=== PATIENT | female | born 1945 | race Caucasian/White ===

== ENCOUNTER 2018-11-04 12:04 | Inpatient (IN) | payer MEDICARE ==
[~2018-11-04] VITALS: Ht 152.4 cm; Wt 83.0 kg
[~2018-11-04 12:04] MED LIST: ALLOPURINOL100 MG PO; AMIODARONE HCL200 MG PO; AMLODIPINE BESYL5 MG PO; ASPIR 8181 MG PO; ATORVASTATIN CA20 MG PO; BENTYL10 MG PO; BIDIL TABLET1 EACH; BUMETANIDE1 MG PO; CALCIUM ACETAT667 MG PO; CLONIDINE HCL0.1 MG PO; DOXYCYCLINE HY100 MG PO; ELIQUIS PO; FERROUS SULFAT325 MG PO; FLAGYL250 MG PO; FUROSEMIDE40 MG PO; GABAPENTIN400 MG PO; GENTAMICIN SUL3.5 GM; GLIPIZIDE-METF1 EAC2; HYDRALAZINE HCL50 MG PO; IPRAT-ALBUT 0.5-3 ML INH; ISOSORBIDE MONO30 MG PO; LASIX40 MG PO; LEVOTHYROXINE50 MCG PO; LEVOTHYROXINE75 MCG PO; LYRICA25 MG PO; METOCLOPRAMIDE10 MG PO; METOPROLOL SUCC50 MG PO; METOPROLOL TART50 MG PO; MIRALAX17 GM PO; MS CONTIN15 MG PO; NIFEDICAL XL30 MG PO; NORCO 10-325 T1 EACH PO; NYSTATIN-TRIAMC15 GM; NYSTATIN1 EAC1 TOP; OMEPRAZOLE40 MG PO; PACERONE200 MG PO; PLAVIX75 MG PO; PRAVASTATIN SOD10 MG PO; PROMETHAZINE HC25 M1 PO; PROVENTIL HFA6.7 GM; QUESTRAN PACKET4 GM PO; SERTRALINE HCL100 MG PO; SPIRIVA18 MCG INH; SPIRONOLACTONE25 MG PO; TYLENOL WITH C1 EACH PO; ULTRAM50 MG PO; VANCOMYCIN HCL125 MG; VITAMIN C500 M2 PO; ZINC-220220 MG PO; ZOFRAN ODT4 MG PO; [UNRECOGNIZED DRUG - OTHER]
[2018-11-04] MEDS ORDERED: ALBUTEROL/IPRATROPIUM 3 ML NEB NEB ONE (12:30)
[2018-11-04] MEDS ORDERED: ADENOSINE 6MG/2ML 0 ML ONE (12:58)
[2018-11-04 13:23] LABS: BASOPHILS % 0.3 % (0.0-1.0); EOSINOPHILS # (AUTO) 0.2 (0.0-0.4); EOSINOPHILS % 2.1 % (0.0-6.0); HEMATOCRIT 36.6 % (34.2-44.1); LYMPHOCYTES # (AUTO) 0.6 (1.0-3.2); LYMPHOCYTES % 8.1 % (18.0-39.1); MEAN CORPUSCULAR HGB CONC 30.1 g/dL (31-35); MEAN CORPUSCULAR VOLUME 93.1 fL (81-99); MONOCYTES # (AUTO) 0.4 (0.2-0.8); MONOCYTES % 5.5 % (4.4-11.3); NEUTROPHILS # (AUTO) 6.1 (2.1-6.9); NEUTROPHILS % 83.6 % (38.7-80.0); PLATELET COUNT 120 x10e3/uL (140-360); RED BLOOD COUNT 3.93 x10e6/uL (3.6-5.1)
[2018-11-04 13:42] LABS: ALBUMIN 3.7 g/dL (3.5-5.0); ALBUMIN/GLOBULIN RATIO 1.1 (0.8-2.0); ANION GAP 23.6 mmol/L (8-16); CALCIUM 8.7 mg/dL (8.4-10.2); CREATININE, SERUM 7.52 mg/dL (0.57-1.11); MAGNESIUM 2.5 MG/DL (1.3-2.1); PHOSPHORUS 5.7 MG/DL (2.3-4.7)
[2018-11-04 13:44] LABS: POTASSIUM 5.6 mmol/L (3.5-5.1)
--- NOTE | 2018-11-04 14:47 | Diagnostic Imaging Report ---
EXAMINATION: CHEST SINGLE (PORTABLE) INDICATION: Shortness of breath. COMPARISON: Chest radiograph 05/07/2017. FINDINGS: TUBES and LINES: Interval removal of left IJ tunneled hemodialysis catheter. LUNGS: There are perihilar and interstitial opacities. Multifocal patchy opacities most confluent throughout the right lung and in the left midlung zone. PLEURA: Possible small bilateral pleural effusions. No evidence of pneumothorax. HEART AND MEDIASTINUM: The cardiomediastinal silhouette is enlarged, unchanged. Atherosclerotic calcifications of the aortic arch. BONES AND SOFT TISSUES: No acute osseous abnormality. Status post median sternotomy. UPPER ABDOMEN: No free air under the diaphragm. IMPRESSION: Cardiomegaly with diffuse opacities, likely reflecting a combination of pulmonary interstitial and alveolar edema. Superimposed multifocal pneumonia is possible in the appropriate clinical setting. Follow-up short interval chest radiograph is suggested to assess for resolution. Signed by: Dr. Sanya Bryant MD on 11/04/2018 2:43 PM
[2018-11-04] MEDS ORDERED: SODIUM CHLORIDE FLUSH 10 ML SYR INJ PRN (15:00)
[2018-11-04] MEDS ORDERED: AMIODARONE HCL 900 MG in DEXTROSE 5% 500ML 500 ML IV ONE (15:00)
--- OUTSIDE RECORDS SUMMARY | 2018-11-04 15:12 | XMS REPORT ---
Author Author [facility] Address Unknown Phone Unavailable Care Team Providers Care Machinist/Machine Builder Name Role Phone Alexis DAVID Unavailable Unavailable Problems This patient has no known problems. Allergies, Adverse Reactions, Alerts This patient has no known allergies or adverse reactions. Medications This patient has no known medications. Results Test Description Test Time Test Comments Text Results Atomic Results Result Comments CHEST SINGLE (PORTABLE) 2018-11-04 14:40:00 [facility] [address] [address] Patient Name: SHOAIB RODRIGUEZ MR #: [id number] : 1945 Age/Sex: 73/F Req #: [id number] Adm Physician: Ordered by: AMBROCIO DAVID MD Report #: [id number] Location: ER Room/Bed: Procedure: [id number] DX/CHEST SINGLE (PORTABLE) Exam Date: 11/04/18 Exam Time: 1325 REPORT STATUS: Signed EXAMINATION: CHEST SINGLE (PORTABLE) INDICATION: Shortness of breath. COMPARISON: Chest radiograph 05/07/2017. FINDINGS: TUBES and LINES: Interval removal of left IJ tunneled hemodialysis catheter. LUNGS: There are perihilar and interstitial opacities. Multifocal patchy opacities most confluent throughout the right lung and in the left midlung zone. PLEURA: Possible small bilateral pleural effusions. No evidence of pneumothorax. HEART AND MEDIASTINUM: The cardiomediastinal silhouette is enlarged, unchanged. Atherosclerotic calcifications of the aortic arch. BONES AND SOFT TISSUES: No acute osseous abnormality. Status post median sternotomy. UPPER ABDOMEN: No free air under the diaphragm. IMPRESSION: Cardiomegaly with diffuse opacities, likely reflecting a combination of pulmonary interstitial and alveolar edema. Superimposed multifocal pneumonia is possible in the appropriate clinical setting. Follow-up short interval chest radiograph is suggested to assess for resolution. Signed by: Dr. Cecelia Ireland MD on 11/04/2018 2:43 PM Dictated By: CECELIA IRELAND MD [id number] Transcribed By: MAKI on 11/04/18 1443 COPY TO: AMBROCIO DAVID MD
--- NOTE | 2018-11-04 15:14 | NUR ---
CALL PLACED TO DR. STONE FOR THIS PATIENT; LEFT VOICEMAIL
[2018-11-04] MEDS ORDERED: ASPIRIN 81 MG CHEW TAB PO ONE (15:30)
--- NOTE | 2018-11-04 16:03 | NUR ---
2ND CALL TO DR. STONE FOR THIS PT.
--- NOTE | 2018-11-04 16:09 | NUR ---
DEE WAS CALLED TO CONTACT [facility]
[2018-11-04 16:31] LABS: ABG PCO2 49 mmHg (41-51); ABG PH 7.34 (7.31-7.41); ABG PO2 95 mmHg (80-105)
[2018-11-04 16:32] LABS: ABG HCO3 26 mmol/L (23-28)
--- NOTE | 2018-11-04 17:05 | NUR ---
SPOKE WITH DIALYSIS NURSE AND HE WILL BE COMING IN
[2018-11-04] MEDS: ENOXAPARIN SOD INJ 40 MG/0.4 ML SYR SC SCH (17:28)
[2018-11-04] MEDS: BUMETANIDE INJ 0.25MG/ML 4ML VIAL IV SCH (17:28)
[2018-11-04] MEDS ORDERED: SODIUM CHLORIDE 0.9% 1000ML 2,000 ML ONE (18:56)
--- NOTE | 2018-11-04 19:00 | NUR ---
Report received from AM RN Serene. Patient alert/oriented x3 resting on her bed. Hemodialysis nurse in the room to assisted dialysis to the patient. Denied pain and no SOB. Respiration even and unlabored. Patient had continuing on BIPAP,Spo2 maintained 100%. Bed in lower position and locked. Call roy within reach. Will continue to monitor.
[2018-11-04] MEDS: ALBUTEROL/IPRATROPIUM 3 ML NEB NEB SCH ×2 (19:42→23:02)
[2018-11-04 19:52] VITALS: BP 104/76
[2018-11-04 20:00] VITALS: BP 104/76
[2018-11-04 20:39] LABS: CREATINE KINASE MB 0.8 ng/mL (0-5.0)
[2018-11-04 21:00] VITALS: BP 104/76
[2018-11-05] VITALS (11 sets, daily range): BP systolic 94–122; BP diastolic 53–76
--- NOTE | 2018-11-05 01:00 | NUR ---
connected CPAP with 6liters oxygen at this time.
[2018-11-05] MEDS: ALBUTEROL/IPRATROPIUM 3 ML NEB NEB SCH ×6 (03:25→23:30)
[2018-11-05] MEDS: BUMETANIDE INJ 0.25MG/ML 4ML VIAL IV SCH (03:56)
--- NOTE | 2018-11-05 05:44 | Diagnostic Imaging Report ---
EXAM: XR CHEST 1 VIEW DATE: 11/05/2018 7:00 AM INDICATION: CHF COMPARISON: 11/04/2018, no report available FINDINGS: Lines and Tubes: None Heart and Mediastinum: Heart moderately enlarged. Sternotomy wires and vascular calcification stable. Lungs and Pleura: Moderate bilateral airspace opacities are present which could represent edema and/or pneumonia, slightly improved. Bones and Soft Tissues: No acute findings. IMPRESSION: 1. Improving edema and/or pneumonia. Signed by: Dr. Vince Baer MD on 11/05/2018 5:41 AM
[2018-11-05 06:01] LABS: CREATINE KINASE MB 0.9 ng/mL (0-5.0)
[2018-11-05 06:26] LABS: BASOPHILS % 0.2 % (0.0-1.0); EOSINOPHILS # (AUTO) 0.1 (0.0-0.4); EOSINOPHILS % 2.1 % (0.0-6.0); HEMATOCRIT 33.9 % (34.2-44.1); HEMOGLOBIN 10.2 g/dL (12.0-16.0); LYMPHOCYTES # (AUTO) 0.5 (1.0-3.2); LYMPHOCYTES % 8.9 % (18.0-39.1); MEAN CORPUSCULAR HEMOGLOBIN 27.9 pg (28-32); MEAN CORPUSCULAR HGB CONC 30.1 g/dL (31-35); MEAN CORPUSCULAR VOLUME 92.6 fL (81-99); MONOCYTES # (AUTO) 0.4 (0.2-0.8); MONOCYTES % 7.8 % (4.4-11.3); NEUTROPHILS # (AUTO) 4.2 (2.1-6.9); NEUTROPHILS % 80.6 % (38.7-80.0); PLATELET COUNT 121 x10e3/uL (140-360); RED BLOOD COUNT 3.66 x10e6/uL (3.6-5.1); RED CELL DISTRIBUTION WIDTH 15.9 % (11.7-14.4)
[2018-11-05 06:31] LABS: ALBUMIN 3.4 g/dL (3.5-5.0); ALBUMIN/GLOBULIN RATIO 1.1 (0.8-2.0); ANION GAP 17.8 mmol/L (8-16); CALCIUM 8.8 mg/dL (8.4-10.2); CREATININE, SERUM 4.67 mg/dL (0.57-1.11); POTASSIUM 3.8 mmol/L (3.5-5.1)
--- NOTE | 2018-11-05 06:56 | NUR ---
Report given to oncoming LIZZY Gauthier,walking round done.
--- NOTE | 2018-11-05 08:30 | NUR ---
VINCENT Lea rounding
[2018-11-05] MEDS ORDERED: METOPROLOL TARTRATE INJ 1 MG/ML VIAL IV PRN (08:45)
[2018-11-05] MEDS ORDERED: NON-FORMULARY MEDICATION (Pravastatin Sodium 10 MG) PO SCH (09:00)
[2018-11-05] MEDS ORDERED: ONDANSETRON HCL 4 MG ORAL DISINTEGRATING TAB PO PRN (09:15)
--- NOTE | 2018-11-05 09:18 | NUR ---
Dr. Lashonda moreno
[2018-11-05] MEDS ORDERED: AZITHROMYCIN 250 MG TAB PO NR (09:45)
--- NOTE | 2018-11-05 09:49 | Consultation ---
DATE OF CONSULTATION: November 04, 2018 CARDIOLOGY CONSULTATION REASON FOR CONSULTATION: CHF. HPI: This is a 73-year-old female that presented with shortness of breath. According to the patient, for the last 3 to 4 days she had been having shortness of breath and wheezing, unable to carry out her activities of daily living. Shortness of breath gets worse with exertion. She stated yesterday her provider was taking her to dialysis. Her heart was racing so fast. She was not able to catch her breath that she decided to come to the emergency room for further evaluation. She has a history of diastolic CHF, history of AFib and was not anticoagulated due to history of GI bleed. She denied any dizziness, any tingling or numbness sensation. BNP was 1593. Troponin was negative times 3. Chest x-ray showed cardiomegaly with diffuse opacities reflecting combination of pulmonary interstitial and alveolar edema. PAST MEDICAL HISTORY: Hypertension, end-stage renal disease, end-stage renal disease, on dialysis, CAD with CABG, AFib, anemia, diastolic CHF, hypothyroidism, bilateral lower extremity neuropathy, hyperlipidemia, altered mental status, obesity and GI bleed. PAST SURGICAL HISTORY: CABG, brain surgery, tubal ligation, and breast reduction surgery. FAMILY HISTORY: Positive for hypertension. SOCIAL HISTORY: She lives at home with the daughter. No smoking, but she drinks occasionally. PHYSICAL EXAMINATION VITAL SIGNS: Temperature 97, heart rate 112, blood pressure 104/61, respiration 19, oxygen saturation 98% on 3 L nasal cannula. GENERAL: She is awake, alert and oriented times 3 with some shortness of breath. HEENT: Mucous membrane moist. NECK: Supple. LUNGS: Bilateral with decreased breath sounds. CARDIOVASCULAR: Irregularly irregular. ABDOMEN: Soft. NEUROLOGICAL: Intact. EXTREMITIES: Lower extremities positive with 2-3+ edema. LABS: Sodium 138, potassium 3.8, chloride 97, CO2 27, BUN 28, creatinine 4.67, glucose 90. White blood cells 5.15, hemoglobin 10.2, hematocrit 33.9, and platelets 121,000. IMPRESSION 1. [id number]-[id number] systolic congestive heart failure exacerbation. 2. Fluid overload. 3. Atrial fibrillation with rapid ventricular response. 4. End-stage renal disease, on dialysis. 5. Anemia. 6. Hypothyroidism. 7. Hyperlipidemia. 8. History of neuropathy. 9. Shortness of breath. ASSESSMENT AND PLAN 1. She received dialysis yesterday and her potassium looked better. 2. Will go ahead and get an echocardiogram to reassess the LV and the valve function. 3. Will continue beta maninder and diuretic. 4. Will put her on low salt diet and 1.5 L fluid restriction. 5. Heart rate still tachy. Will use p.r.n. IV metoprolol. She is not anticoagulated due to history of GI bleed. Will continue Lovenox for now. Further cardiac workup pending clinical course. Thank you for this consultation. DICTATED BY JUNIE WALTON NP Job#: [id number] COLLIN
[2018-11-05] MEDS: AMIODARONE HCL 200 MG TAB PO SCH (09:57)
[2018-11-05] MEDS: ASPIRIN 81 MG CHEW TAB PO SCH (09:57)
[2018-11-05] MEDS ORDERED: GABAPENTIN 400 MG CAP PO SCH (10:00)
--- NOTE | 2018-11-05 10:03 | History and Physical ---
PRIMARY CARE PHYSICIAN: Dr. Moe Sanford CONSULTANTS: 1. Dr. Miri Baez 2. Dr. Rd Pascual CHIEF COMPLAINT: Shortness of breath, pulmonary edema, and possible pneumonia. HISTORY: Patient is a 73-year-old female with end-stage renal disease, on dialysis, and previously with C. diff infection. The patient had left arm AV fistula placement. She has been getting dialysis. Patient came in with increasing shortness of breath and difficulty breathing. The patient chest x-ray showed pulmonary edema. The patient is otherwise stable. She is stating that she did not have any fever. No chest pain. She does have increasing shortness of breath, however. PAST MEDICAL HISTORY: End-stage renal disease, on dialysis. Recurrent urinary tract infection. History of previous C. diff infection. Atrial fibrillation, coronary artery disease, chronic obstructive pulmonary disease. Congestive heart failure. History of coronary artery bypass surgery. History of prior craniotomy, etiology unclear. History of prior breast reduction surgery. Chronic anemia. SOCIAL HISTORY: Patient does not smoke or use alcohol. No recreational drug use. ALLERGIES: LISINOPRIL, GABAPENTIN, AND BACTRIM. HOME MEDICATIONS: List reviewed. REVIEW OF SYSTEMS: Shortness of breath. PHYSICAL EXAMINATION: VITAL SIGNS: Temperature is 98, blood pressure 107/72, pulse rate is 101, respirations 20. GENERAL: The patient is not in acute distress. She is awake. HEENT: Normocephalic, atraumatic. Sclerae anicteric. NECK: Supple grossly. PULMONARY: Diminished breath sounds bilaterally with coarseness and rhonchi. CARDIOVASCULAR: S1 and S2. Regular rate and rhythm to tachycardia. ABDOMEN: Soft, obese. EXTREMITIES: Plus edema. NEUROLOGIC: No focal deficit. LABORATORY: Sodium is 138, potassium 3.8, chloride 97, bicarb 27, BUN 28, creatinine 4.7, glucose 90. WBC is 5, hemoglobin 10.2, hematocrit 34, platelets 121,000. IMPRESSION: 1. Pulmonary edema. 2. Possible community-acquired pneumonia. 3. Possible pleural effusion. 4. End-stage renal disease, on dialysis with fluid overload. 5. Multiple chronic baseline problems. PLAN: Resume home medication. Dialysis. Antibiotics. CT of the chest without contrast. Home medications. PT, OT. Job#: [id number]
[2018-11-05] MEDS: PANTOPRAZOLE SOD 40 MG TABEC PO SCH (10:39)
[2018-11-05] MEDS: ALLOPURINOL 100 MG TAB PO SCH (10:39)
--- NOTE | 2018-11-05 11:17 | NUR ---
PATIENT REFUSING PHYSICAL THERAPY.
[2018-11-05] MEDS ORDERED: METOPROLOL TARTRATE 50 MG TAB PO SCH (12:00)
[2018-11-05] MEDS: METOPROLOL TARTRATE 25 MG TAB PO SCH ×3 (12:25→23:36)
--- NOTE | 2018-11-05 13:50 | NUR ---
Dr. Sasha moreno; Patient is to have HD in the morning, dialysis nurse made aware.
--- NOTE | 2018-11-05 13:50 | NUR ---
Visit made by the Spiritual Care Department Pastoral Visitor, Niya Garcia. PV provided pastoral presence, prayer, hospitality, and supportive listening. Pastoral Visitor informed pt/family of the scope of Distribution Analyst Services and availability. EDMOND COTO Private Duty Rn Spiritual Care Department O: [phone] Pager: [phone] ([phone] number calling from)
[2018-11-05 13:56] LABS: CREATINE KINASE MB 0.9 ng/mL (0-5.0)
--- NOTE | 2018-11-05 14:34 | Consultation ---
DATE OF CONSULTATION: November 04, 2018 This is a late entry. HISTORY OF PRESENT ILLNESS: A 73-year-old female who was scheduled for dialysis today developed progressive shortness of breath and cough. Presented to the emergency room where she was found to be hypoxic, placed on BiPAP. Currently on BiPAP. Denies any fever or chills or chest pains. She states that shortness of breath developed progressively and developed about 2 days ago. Cough is mostly nonproductive. ALLERGIES: TO LISINOPRIL AND SULFA. HAD A RECENT Had recent Enterobacter cloacae septicemia secondary to infected dialysis catheter, was treated adequately with antibiotics. She has history of type 2 diabetes with end-organ damage including retinopathy, neuropathy, and peripheral vascular disease as well as end-stage renal disease. History of congestive heart failure. History of gout, cardiac disease, atrial fibrillation, COPD, prior craniotomy, history of C. difficile colitis, previous ESBL. CURRENT MEDICATIONS: In the process of being reconciled but she does take sertraline 100 mg at bedtime, pravastatin 10 mg once a day, pantoprazole 40 mg. She is on metoprolol 25 p.o. q.6. She is on levothyroxine 75 mcg daily and Neurontin 400 mg p.o. t.i.d. which has been adjusted to 300 mg b.i.d. given her end-stage renal disease status. She is also on allopurinol 100 mg daily, amiodarone 200 mg p.o. daily, aspirin 1 tablet a day. SOCIAL HISTORY: She does not smoke or drink. FAMILY HISTORY: Significant for diabetes. PHYSICAL EXAMINATION GENERAL: Alert, alert, laying supine, on BiPAP, no apparent distress. VITALS: Blood pressure of 104/76, pulse rate 98, afebrile, respiratory rate 23, oxygen saturation 99% to 100% on BiPAP. HEAD AND NECK: Cornea clear. Oral mucosa moist. Neck veins distended. LUNGS: Bilateral end-expiratory rhonchi with rales, bilateral. HEART: S1, S2 audible. No gallop. ABDOMEN: Otherwise soft, nontender. LOWER EXTREMITY EXAMINATION: Shows 1+ edema. IMPRESSIONS 1. Significant fluid overload. 2. Congestive heart failure. 3. End-stage renal disease. 4. Mild hyperkalemia. LABORATORY TESTS: Noted. Hemoglobin is stable, white count normal. Potassium level of 5.6. Dialysis nurse has been called on an urgent stat basis for stat dialysis. Discussed with ER physician. Discussed with patient. I am standing by for nurse to show up to initiate dialysis, will ultrafilter on hemodialysis, challenge dry weight. Oxygen protocol. Adjust Neurontin dose. Please see orders. Job#: [id number] TA
[2018-11-05] MEDS ORDERED: METHYLPREDNISOLONE SOD SUCC 40 MG/ML VIAL 1ML IV NR (14:45)
--- NOTE | 2018-11-05 15:01 | Diagnostic Imaging Report ---
EXAM: CT Chest WITHOUT contrast 11/05/2018 9:08 AM INDICATION: Shortness of breath. End-stage renal disease. Pulmonary edema. COMPARISON: Chest radiograph November 04, 2018 and November 05, 2018 TECHNIQUE: Chest was scanned utilizing a multidetector helical scanner from the lung apex through the level of the adrenal glands without administration of IV contrast. Absence of intravenous contrast decreases sensitivity for detection of lymphadenopathy and vascular pathology. Coronal and sagittal reformations were obtained. Routine protocol was performed. IV CONTRAST: None RADIATION DOSE: Total DLP: 410.33 mGy*cm Estimated effective dose: (DLP x 0.014 x size factor) mSv All CT scans are performed using radiation dose reduction techniques. Technical factors are evaluated and adjusted to ensure appropriate moderation of exposure. Automated dose management technology is applied to adjust the radiation dose to minimize exposure while achieving a diagnostic-quality image. COMPLICATIONS: None FINDINGS: LINES/ TUBES: None. LUNGS AND AIRWAYS: Extensive scattered groundglass densities are seen throughout the lungs with regions of what appear to be scarring/atelectasis and regions of what appear to be air trapping. Airways are normal. PLEURA: There are moderate-sized pleural effusions. No pneumothorax is seen. HEART AND MEDIASTINUM: The thyroid gland is normal. There are enlarged mediastinal and hilar lymph nodes. The heart is prominent in size. There is no pericardial effusion. Scattered vascular calcifications are seen in the coronary arteries, aorta and branch vessels. Sternal wires and postsurgical changes to the heart are seen. UPPER ABDOMEN: Ill-defined hypodensity in the right hepatic lobe near the dome and in the anterior right hepatic lobe are seen. These are incompletely characterized. The liver has a nodular contour. The spleen may be enlarged. The spleen is incompletely imaged. BONES: Scattered degenerative changes are seen SOFT TISSUES: Small nonspecific calcification in the anterior lower chest left subcutaneous fat. IMPRESSION: Moderate size pleural effusion with associated atelectasis and extensive scattered groundglass densities are seen throughout the lungs with regions of what appear to be scarring/atelectasis and regions of what appear to be air trapping. Enlarged mediastinal and hilar lymph nodes could be reactive. Attention to these on follow-up imaging is recommended. Ill-defined hypodensities in the liver are incompletely characterized. Abdominal MRI is recommended for further evaluation. Signed by: Dr. Kevin Laird M.D. on 11/05/2018 2:58 PM
[2018-11-05] MEDS ORDERED: NON-FORMULARY MEDICATION (Ascorbic Acid (Vitamin C) 500 MG) PO SCH (17:00)
[2018-11-05] MEDS: ENOXAPARIN SOD INJ 40 MG/0.4 ML SYR SC SCH (17:42)
[2018-11-05] MEDS: GABAPENTIN 400 MG CAP PO SCH (17:42)
[2018-11-05] MEDS: ASCORBIC ACID 500 MG TAB PO SCH (17:42)
--- NOTE | 2018-11-05 19:00 | NUR ---
Report received from AM LIZZY Gauthier.Patient received alert resting on her bed. Denied pain and no SOB. Respiration even and unlabored with 3 liters oxygen continuing via nasal canula. Patient instructed call for help as needed. Bed in lower position,locked. Call roy within reach. Will continue to monitor.
--- NOTE | 2018-11-05 19:40 | NUR ---
Patient bed alarm and weight was not working, assisted to changed bed at this time.
[2018-11-05] MEDS: SERTRALINE HCL 100 MG TAB PO SCH (20:49)
[2018-11-05] MEDS: PRAVASTATIN 20 MG TAB PO SCH (20:49)
[2018-11-06] VITALS (9 sets, daily range): BP systolic 94–120; BP diastolic 54–88
[2018-11-06] MEDS: ALBUTEROL/IPRATROPIUM 3 ML NEB NEB SCH ×6 (03:20→23:30)
[2018-11-06 05:24] LABS: EOSINOPHILS % 0.2 % (0.0-6.0); HEMATOCRIT 34.6 % (34.2-44.1); HEMOGLOBIN 10.3 g/dL (12.0-16.0); LYMPHOCYTES # (AUTO) 0.3 (1.0-3.2); LYMPHOCYTES % 6.3 % (18.0-39.1); MEAN CORPUSCULAR HEMOGLOBIN 27.6 pg (28-32); MEAN CORPUSCULAR HGB CONC 29.8 g/dL (31-35); MEAN CORPUSCULAR VOLUME 92.8 fL (81-99); MONOCYTES # (AUTO) 0.2 (0.2-0.8); MONOCYTES % 3.3 % (4.4-11.3); NEUTROPHILS # (AUTO) 4.1 (2.1-6.9); NEUTROPHILS % 89.5 % (38.7-80.0); PLATELET COUNT 112 x10e3/uL (140-360); RED BLOOD COUNT 3.73 x10e6/uL (3.6-5.1); RED CELL DISTRIBUTION WIDTH 15.9 % (11.7-14.4)
[2018-11-06 05:49] LABS: ALBUMIN 3.4 g/dL (3.5-5.0); ANION GAP 20.1 mmol/L (8-16); CALCIUM 8.7 mg/dL (8.4-10.2)
[2018-11-06 05:59] LABS: POTASSIUM 5.1 mmol/L (3.5-5.1)
[2018-11-06 06:00] LABS: CREATININE, SERUM 6.89 mg/dL (0.57-1.11)
[2018-11-06] MEDS: METOPROLOL TARTRATE 25 MG TAB PO SCH ×4 (06:13→23:51)
[2018-11-06] MEDS: LEVOTHYROXINE SODIUM 75 MCG TAB PO SCH (06:13)
--- NOTE | 2018-11-06 07:06 | NUR ---
Report given to oncoming LIZZY Molina,walking round done.
[2018-11-06] MEDS: PANTOPRAZOLE SOD 40 MG TABEC PO SCH ×2 (07:30→18:41)
[2018-11-06] MEDS ORDERED: OXYCODONE-ACET1 EAC3 PO (08:42)
[2018-11-06] MEDS ORDERED: NON-FORMULARY MEDICATION (Oxycodone Hcl/Acetaminophen (Oxycodone-Acetaminophen 10-325) 1 T PO PRN (08:45)
[2018-11-06] MEDS: ASCORBIC ACID 500 MG TAB PO SCH ×2 (09:00→17:59)
[2018-11-06] MEDS: GABAPENTIN 400 MG CAP PO SCH ×2 (09:00→17:58)
[2018-11-06] MEDS ORDERED: ALBUMIN 25% 12.5GM 50ML 50 ML IV PRN (10:30)
[2018-11-06] MEDS ORDERED: SODIUM CHLORIDE 0.9% 1000ML 2,000 ML IV PRN (10:30)
[2018-11-06] MEDS: OXYCODONE/ACETAMINOPHEN 5-325 1 EACH TABLET PO PRN ×2 (10:40→18:44)
[2018-11-06] MEDS ORDERED: ALBUMIN 25% 12.5GM 50ML 100 ML IV PRN (11:00)
--- NOTE | 2018-11-06 11:35 | NUR ---
ASSESSMENT: Spiritual concern Referred by Pastoral Visitor. Pt hopeful concerning illness. Pt states she lives with her daughter and her son lives in [place] w/ pt's 3 y/o granddaughter. Pt lamented traveling restrictions related to dialysis treatment. Intervention: Provided unhurried pastoral presence and empathic listening. Facilitated illness review. Provided prayer. Provided information on how to reach manager furniture, if needed. Outcome: Pt stated "visit any time." EDMOND COTO [employer]illed Maintenance Supervisor Spiritual Care Department O: [phone] Pager: [phone] ([phone] number calling from)
--- NOTE | 2018-11-06 15:47 | NUR ---
Nutrition Screen Note RD Recommendation for Physician: - Recommend adding Renal diet restrictions to current diet Plan of Care: RD following, monitoring for tolerance and adequacy Nutrition reason for involvement: Nutrition Risk Trigger- DX Primary Diagnose(s): SOB, PE, ESRD PMH: ESRD on HD, C diff, CAD, COPD, CABG Ht: 60 in Wt: 189.04 lb BMI: 36.9 kg/m2 IBW: [address] Assessment: (11/06) 73 YOF admitted for SOB and fluid overload due to missed dialysis treatment. Pt evaluated today due to admit dx of ESRD, pt sleeping on BiPAP at time of visit and receiving HD tx- unable to wake x 2. No family present to provide nutrition hx. Pt discussed during rounds, pt now dialyzed twice since admit. No reported poor intake or GI distress per rounds or upon admit. Chart reviewed. Labs and meds reviewed, K and Phos trend elevated. Will monitor and continue to follow. Current Diet: Cardiac Malnutrition Evaluation (11/06/18) The patient does not meet criteria for a specified degree of malnutrition at this time. Will re-evaluate at follow-up as appropriate. Diet Education Needs Assessment: Diet education indicated, pt not appropriate for education at this time. Nutrition Care Level: Low Signed: Jessica To RD, LD, [facility]
[2018-11-06] MEDS ORDERED: CEPACOL SORE THROAT LOZENGES PO PRN (16:30)
[2018-11-06] MEDS ORDERED: METHYLPREDNISOLONE SOD SUCC 40 MG/ML VIAL 1ML IV ONE (16:30)
[2018-11-06] MEDS: AMIODARONE HCL 200 MG TAB PO SCH (17:59)
[2018-11-06] MEDS: ASPIRIN 81 MG CHEW TAB PO SCH (17:59)
[2018-11-06] MEDS: AZITHROMYCIN 250 MG TAB PO SCH (17:59)
[2018-11-06] MEDS: ALLOPURINOL 100 MG TAB PO SCH (17:59)
[2018-11-06] MEDS: ENOXAPARIN SOD INJ 40 MG/0.4 ML SYR SC SCH (18:43)
--- NOTE | 2018-11-06 19:00 | NUR ---
Report received from AM LIZZY Molina. Patient received stable resting on her bed. Dined pain and no SOB. No respiratory distress noted, continuing on 3 liters nasal canula Spo2 maintained 97%. Patient instructed to call for help as needed. Bed in lower position,locked. Call roy within reach. Will continue to monitor.
[2018-11-06] MEDS: PRAVASTATIN 20 MG TAB PO SCH (20:32)
[2018-11-06] MEDS: SERTRALINE HCL 100 MG TAB PO SCH (20:32)
--- NOTE | 2018-11-06 23:34 | NUR ---
Patient assisted to go to bathroom with using her walker,patient tolerated well. Patient had moderate brown BM at this time. No SOB noted, continuing on 3liters nasal canula. Will continue to monitor.
[2018-11-07] VITALS (8 sets, daily range): BP systolic 109–133; BP diastolic 56–109
[2018-11-07] MEDS: OXYCODONE/ACETAMINOPHEN 5-325 1 EACH TABLET PO PRN ×3 (02:01→18:56)
[2018-11-07] MEDS: ALBUTEROL/IPRATROPIUM 3 ML NEB NEB SCH ×6 (03:20→23:30)
[2018-11-07] MEDS: LEVOTHYROXINE SODIUM 75 MCG TAB PO SCH (05:47)
[2018-11-07] MEDS: METOPROLOL TARTRATE 25 MG TAB PO SCH ×4 (05:48→18:53)
--- NOTE | 2018-11-07 07:01 | NUR ---
Report given to oncoming LIZZY Molina, walking round done.
[2018-11-07] MEDS: PANTOPRAZOLE SOD 40 MG TABEC PO SCH (07:50)
[2018-11-07] MEDS: ALLOPURINOL 100 MG TAB PO SCH (08:22)
[2018-11-07] MEDS: AZITHROMYCIN 250 MG TAB PO SCH (08:22)
[2018-11-07] MEDS: ASPIRIN 81 MG CHEW TAB PO SCH (08:22)
[2018-11-07] MEDS: AMIODARONE HCL 200 MG TAB PO SCH (08:22)
[2018-11-07] MEDS: ASCORBIC ACID 500 MG TAB PO SCH ×2 (08:24→18:04)
[2018-11-07] MEDS: GABAPENTIN 300 MG CAP PO SCH ×2 (08:29→18:04)
--- NOTE | 2018-11-07 08:59 | Diagnostic Imaging Report ---
Examination: Single AP view of the chest. COMPARISON: CT chest without contrast 11/06/2018 INDICATION: Pleural effusion DISCUSSION: Lungs are reasonably well inflated. Small bilateral pleural effusions, left larger than right, bibasilar airspace disease representing subsegmental atelectasis. Stable enlargement of the cardiac silhouette with postsurgical changes of the mediastinum and interstitial pulmonary edema . No acute osseous abnormality. IMPRESSION: Stable cardiomegaly with interstitial pulmonary edema and small bilateral pleural effusions, left larger than right. Signed by: Dr. John Paul Hoskins M.D. on 11/07/2018 8:56 AM
--- NOTE | 2018-11-07 17:39 | NUR ---
Called [facility] [phone] spoke with Rosa M to schedule dialysis for tomorrow morning per Dr. Silva Baez's orders.
[2018-11-07] MEDS ORDERED: METHYLPREDNISOLONE SOD SUCC 40 MG/ML VIAL 1ML IV ONE (17:45)
[2018-11-07] MEDS: ENOXAPARIN SOD INJ 40 MG/0.4 ML SYR SC SCH (18:04)
--- NOTE | 2018-11-07 19:20 | NUR ---
RECEIVED REPORT @ PT'S BEDSIDE, PT AAOX3, WATCHING TV. DENIES PAIN AND DISCOMFORTS, INFORMED PT TO CALL FOR ASSISTANCEBEFORE GETTING OOB, PT VERBALIZES UNDERSTANDING.
[2018-11-07] MEDS: PRAVASTATIN 20 MG TAB PO SCH (21:10)
[2018-11-07] MEDS: SERTRALINE HCL 100 MG TAB PO SCH (21:10)
--- NOTE | 2018-11-08 00:25 | NUR ---
RECEIVED REPORT ON PT @ PT'S BEDSIDE , FISTULA GOOD BRIUT & THIRLL. SLEEPING WELL WITH CARE. INSTRUCTED PT TO CALL FOR NURSING STAFF PRIOR TO GETTING OOB, PT VERBALIZED UNDERSTANDING, CALL LOYA IN REACH.
[2018-11-08] MEDS: METOPROLOL TARTRATE 25 MG TAB PO SCH ×5 (00:33→17:02)
[2018-11-08] MEDS: ALBUTEROL/IPRATROPIUM 3 ML NEB NEB SCH ×6 (03:00→23:00)
[2018-11-08 04:14] VITALS: BP 110/95
[2018-11-08] MEDS: LEVOTHYROXINE SODIUM 75 MCG TAB PO SCH (05:21)
[2018-11-08] MEDS: OXYCODONE/ACETAMINOPHEN 5-325 1 EACH TABLET PO PRN ×2 (05:25→17:38)
[2018-11-08 05:32] LABS: EOSINOPHILS % 0.4 % (0.0-6.0); HEMATOCRIT 33.1 % (34.2-44.1); HEMOGLOBIN 9.9 g/dL (12.0-16.0); LYMPHOCYTES # (AUTO) 0.3 (1.0-3.2); MEAN CORPUSCULAR HGB CONC 29.9 g/dL (31-35); MEAN CORPUSCULAR VOLUME 93.8 fL (81-99); MONOCYTES # (AUTO) 0.2 (0.2-0.8); NEUTROPHILS # (AUTO) 4.2 (2.1-6.9); PLATELET COUNT 109 x10e3/uL (140-360); RED BLOOD COUNT 3.53 x10e6/uL (3.6-5.1); RED CELL DISTRIBUTION WIDTH 15.9 % (11.7-14.4)
[2018-11-08 05:52] LABS: ALBUMIN 4.1 g/dL (3.5-5.0); ALBUMIN/GLOBULIN RATIO 1.3 (0.8-2.0); ANION GAP 20.8 mmol/L (8-16); CALCIUM 9.3 mg/dL (8.4-10.2); CREATININE, SERUM 5.86 mg/dL (0.57-1.11); POTASSIUM 5.8 mmol/L (3.5-5.1)
[2018-11-08] MEDS ORDERED: SODIUM CHLORIDE 0.9% 1000ML 2,000 ML ONE (06:44)
[2018-11-08 07:11] VITALS: BP 138/84
--- NOTE | 2018-11-08 07:14 | NUR ---
REPORTED OFF TO ONCOMING NURSE DIALYSIS NURSE HERE TO PERFORM TREATMENT,
--- NOTE | 2018-11-08 07:15 | NUR ---
pt resting in bed, no s/s distress. dialysis nurse on unit. pt stable. will continue to monitor.
[2018-11-08] MEDS: PANTOPRAZOLE SOD 40 MG TABEC PO SCH (07:30)
[2018-11-08 08:18] VITALS: BP 138/84
[2018-11-08] MEDS: GABAPENTIN 300 MG CAP PO SCH ×2 (08:30→17:02)
[2018-11-08] MEDS: AMIODARONE HCL 200 MG TAB PO SCH ×2 (08:30→17:02)
[2018-11-08] MEDS: AZITHROMYCIN 250 MG TAB PO SCH (08:30)
[2018-11-08] MEDS: ASPIRIN 81 MG CHEW TAB PO SCH (08:30)
[2018-11-08] MEDS: ASCORBIC ACID 500 MG TAB PO SCH ×2 (08:30→17:02)
[2018-11-08] MEDS: ALLOPURINOL 100 MG TAB PO SCH ×2 (08:31→17:03)
--- NOTE | 2018-11-08 08:43 | NUR ---
CM SPOKE TO DR. BAE REGARDING PATIENT BARRIER TO DISCHARGE AND DISCHARGE PLAN. PATIENT UNSTEADY BUT USES ROLLING WALKER AND WHEELCHAIR AT HOME. PER MD, PATIENT TO RECEIVE HD TODAY. DR. BAE WITH VERBAL ORDERS TO SET UP HOME HEALTH WITH SN EVAL AND PT EVAL AND TREAT. ORDERS PLACED BY CM. FLOOR DALILA LEON NOTIFIED.
[2018-11-08 12:14] VITALS: BP 121/81
--- NOTE | 2018-11-08 15:07 | NUR ---
DC PLAN: PT DISCUSSED IN AM MEETING. PLAN IS TO DC HOME AFTER HD IF PT IS STABLE. IMM LETTER WAS EXPLAINED TO THE PT. VERBALIZED UNDERSTANDING. IMM LETTER WAS SIGNED. COPY TO CHART AND COPY TO THE PT. ORDER WAS RECEIVED FOR HOME HEALTH; SN/PT. MET WITH THE PT AT THE BEDSIDE. STATES SHE HAS A PROVIDER 28HRS/WEEK AND THEY ARE FROM [facility] @ [phone]. PT WAS PROVIDED CHOICE LETTER. STATES IF ND DOES NOT HAVE NURSING, OK TO SEND TO [facility] / IN-NETWORK PROVIDER W INSURANCE. CALL TO [facility]. STATES THEY NO LONGER HAVE NURSING. CALL MADE TO [facility] @ [phone]. SPOKE W JUNG. STATES THEY CAN RUN THE INSURANCE, BUT THE PT IS IN NETWORK. ORDER WAS FAXED TO [phone].
--- NOTE | 2018-11-08 15:12 | NUR ---
HOME HEALTH DISCHARGE NOTE PATIENT ADDRESS WHERE SERVICE WILL BE RECEIVED: [address] [place] [id number] PATIENT CONTACT NUMBER: [phone] NAME OF HOME HEALTH COMPANY: [employer] TELEPHONE/FAX NUMBER OF COMPANY: OFF: [phone] / FAX: [phone] ADDRESS OF [employer]: [address] [place] [id number] SERVICES TO RECEIVE: SN EVAL AND TREAT, PT/OT EVAL AND TREAT ANTICIPATED DATE SERVICES WILL BEGIN: WITHIN 1-2DAYS Please call the company above if you have not received a call to schedule a home visit within 24 hours of discharge.
[2018-11-08 17:00] VITALS: BP 98/58
[2018-11-08] MEDS: ENOXAPARIN SOD INJ 40 MG/0.4 ML SYR SC SCH (17:02)
--- NOTE | 2018-11-08 17:03 | NUR ---
dr couch rounded earlier, stated pt not to dc unless HR remains under 110. pt did not recieve metoprolol @0600 dt dialysis. HR remained high. metoprolol admin @1300, HR beginning to remain 98-115. will continue to monitor. HH has been arranged by heather hernandez pending HR stablizing <110.
--- NOTE | 2018-11-08 19:30 | NUR ---
RECEIVED REPORT AT BEDSIDE [facility] OFF GOING NURSE RODRÍGUEZ RN, PT AAOX3, BREATHING EVEN AND UNLABORED ON 2L O2 N/C. PT IN NO DISTRESS AT THIS TIME. HR IN 90'S.
[2018-11-08 20:00] VITALS: BP 115/71
[2018-11-08] MEDS: PRAVASTATIN 20 MG TAB PO SCH (21:33)
[2018-11-08] MEDS: SERTRALINE HCL 100 MG TAB PO SCH (21:33)
--- NOTE | 2018-11-08 23:00 | NUR ---
pt ready for bed, request percocet for generalized back pain. pt able to turn and reposition for comfort measures.
[2018-11-09] VITALS (8 sets, daily range): BP systolic 93–125; BP diastolic 62–99
[2018-11-09] MEDS: OXYCODONE/ACETAMINOPHEN 5-325 1 EACH TABLET PO PRN ×3 (00:10→19:42)
[2018-11-09] MEDS: ALBUTEROL/IPRATROPIUM 3 ML NEB NEB SCH ×5 (03:00→19:45)
[2018-11-09] MEDS: METOPROLOL TARTRATE 25 MG TAB PO SCH ×4 (06:00→17:34)
[2018-11-09] MEDS: LEVOTHYROXINE SODIUM 75 MCG TAB PO SCH (06:21)
--- NOTE | 2018-11-09 07:17 | NUR ---
REPORTED OFF TO EMMA ARREGUIN IN ROOM ON COMPUTER AND PHONE.DENIES PAIN.
[2018-11-09] MEDS: ALLOPURINOL 100 MG TAB PO SCH (08:20)
[2018-11-09] MEDS: AMIODARONE HCL 200 MG TAB PO SCH (08:20)
[2018-11-09] MEDS: AZITHROMYCIN 250 MG TAB PO SCH (08:20)
[2018-11-09] MEDS: ASPIRIN 81 MG CHEW TAB PO SCH (08:20)
[2018-11-09] MEDS: GABAPENTIN 300 MG CAP PO SCH ×2 (08:20→16:43)
[2018-11-09] MEDS: ASCORBIC ACID 500 MG TAB PO SCH ×2 (08:20→16:43)
[2018-11-09] MEDS: PANTOPRAZOLE SOD 40 MG TABEC PO SCH (08:20)
--- NOTE | 2018-11-09 08:23 | NUR ---
SPOKE TO COOPER AT [facility] DIALYSIS INFORMED PATIENT TO HAVE HD TODAY FOR FLUID REMOVAL PER
--- NOTE | 2018-11-09 08:39 | Progress Note ---
DATE: November 09, 2018 SUBJECTIVE: Still some dyspnea, on oxygen. PHYSICAL EXAMINATION GENERAL: No distress, sitting up. VITAL SIGNS: Temperature 98.4, pulse 93 and irregular, blood pressure 104/72. CHEST: With scattered crackles. EXTREMITIES: 1+ edema. ASSESSMENT 1. End-stage renal disease. 2. Fluid overload. 3. Nephrosclerosis. 4. History of congestive heart failure. 5. Atrial fibrillation. PLAN: Suggest another 2 hours of fluid removal today with dialysis, 2-3 liters target, blood flow rate 200 mL per minute, p.r.n. mannitol and saline. We will follow along. Job#: [id number] BRANDON
--- NOTE | 2018-11-09 14:18 | NUR ---
2nd call placed to Rahat spoke to Melonie, informed that patient is still needing dialysis prior to d/c, awaiting return call
--- NOTE | 2018-11-09 15:35 | NUR ---
spoke to field auditor rocio at [facility] informed patient has still not received dialysis, states "nurse to arrive at 6pm for dialysis treatment" house supp informed of delay
[2018-11-09] MEDS: ENOXAPARIN SOD INJ 40 MG/0.4 ML SYR SC SCH (16:43)
--- NOTE | 2018-11-10 00:19 | Discharge Summary ---
NO DICTATION (00:01) Job#: [id number] ELIAS
--- NOTE | 2018-11-10 02:21 | Discharge Summary ---
CONSULTANTS 1. Dr[address] Pascual. 2. Dr. Miri Baez. FINAL DIAGNOSES 1. Idrru-hg-tsbyqvk systolic dysfunction and congestive heart failure. Patient ejection fraction of 40%. 2. End-stage renal disease, on dialysis, associated with fluid overload. 3. Noncompliance due to fluid restriction. 4. Baseline chronic atrial fibrillation, rate controlled, unable to anticoagulate due to recurrent upper gastrointestinal bleed. SUMMARY: Patient is a 73-year-old female who came in with increasing vascular congestion. The patient has pulmonary edema. She also had bilateral pleural effusion. After dialysis, the patient responded well. Her repeat x-ray shows significant improvement. She is going to have dialysis today. Again, we will take more fluid out prior to her discharge. She does have atrial fibrillation, rate controlled. The patient is uncomfortable. She is oxygen-dependent at home. She is also on fluid restriction from her varitype operator. The patient is stable. Her heart rate is episodically elevated. Digoxin is initiated. Patient is on metoprolol. At home, she was getting 50 mg every 6 hours. Here, the patient is only taking 25 mg every 6 hours. The patient is otherwise stable. We resumed her home medication. Discharge home after dialysis today. Discussed with patient again on fluid restriction. Job#: [id number] ISAÍAS
== END 2018-11-09 21:45 | disposition home health service (06) | DRG 291 ==
LOC: ER 12:04 → ERHOLD 15:09 → IMCU 18:42
PROVIDERS: ADMIT Internal Medicine; ATTEND Internal Medicine
PROC: 5A1D70Z Performance of Urinary Filtration, Intermittent, Less than 6 Hours Per Day (ICD-10-PCS; principal; 2018-11-04)
PROC: 5A1D70Z Performance of Urinary Filtration, Intermittent, Less than 6 Hours Per Day (ICD-10-PCS; 2018-11-06)
PROC: 5A1D70Z Performance of Urinary Filtration, Intermittent, Less than 6 Hours Per Day (ICD-10-PCS; 2018-11-08)
PROC: 5A1D70Z Performance of Urinary Filtration, Intermittent, Less than 6 Hours Per Day (ICD-10-PCS; 2018-11-09)
DX: I13.2 Hypertensive heart and chronic kidney disease with heart failure and with stage 5 chronic kidney disease, or end stage renal disease (principal); N18.6 End stage renal disease; J18.9 Pneumonia, unspecified organism; I50.23 Acute on chronic systolic (congestive) heart failure; J91.8 Pleural effusion in other conditions classified elsewhere; R06.03 Acute respiratory distress; I25.10 Atherosclerotic heart disease of native coronary artery without angina pectoris; J44.9 Chronic obstructive pulmonary disease, unspecified; D64.9 Anemia, unspecified; E11.42 Type 2 diabetes mellitus with diabetic polyneuropathy; E11.319 Type 2 diabetes mellitus with unspecified diabetic retinopathy without macular edema; E11.51 Type 2 diabetes mellitus with diabetic peripheral angiopathy without gangrene; E11.22 Type 2 diabetes mellitus with diabetic chronic kidney disease; M10.9 Gout, unspecified; I48.91 Unspecified atrial fibrillation; E87.5 Hyperkalemia; Z88.2 Allergy status to sulfonamides; Z95.1 Presence of aortocoronary bypass graft; Z99.2 Dependence on renal dialysis; Z88.8 Allergy status to other drugs, medicaments and biological substances; Z82.49 Family history of ischemic heart disease and other diseases of the circulatory system; Z87.440 Personal history of urinary (tract) infections; E03.9 Hypothyroidism, unspecified; E78.5 Hyperlipidemia, unspecified; E66.9 Obesity, unspecified; Z68.35 Body mass index [BMI] 35.0-35.9, adult; Z91.19 Patient's noncompliance with other medical treatment and regimen; Z79.01 Long term (current) use of anticoagulants; Z79.82 Long term (current) use of aspirin
CPT/HCPCS: 36415; 36600; 71045; 71250; 80053; 82550; 82553; 82805; 83735; 83880; 84100; 84484; 85025; 86704; 86706; 87340; 90962; 93005; 93306; 94640; 94660; 97139; 99284; J0153; J1650; J2920; J7030; J7060

== ENCOUNTER 2018-11-13 16:54 | Inpatient (IN) | payer MEDICARE ==
[~2018-11-13] VITALS: Ht 152.4 cm; Wt 83.0 kg
[~2018-11-13 16:54] MED LIST changes: +OXYCODONE-ACET1 EAC3 PO
[2018-11-13] MEDS ORDERED: SODIUM CHLORIDE 0.9% 1000ML 1,000 ML IV STA (16:59)
[2018-11-13] MEDS ORDERED: DILTIAZEM HCL 5 MG/ML 5 ML VIAL IV STA ×3 (17:09→17:42)
[2018-11-13 17:12] LABS: BASOPHILS % 0.1 % (0.0-1.0); EOSINOPHILS # (AUTO) 0.1 (0.0-0.4); EOSINOPHILS % 1.3 % (0.0-6.0); HEMATOCRIT 32.7 % (34.2-44.1); HEMOGLOBIN 10.4 g/dL (12.0-16.0); LYMPHOCYTES # (AUTO) 0.4 (1.0-3.2); LYMPHOCYTES % 5.7 % (18.0-39.1); MEAN CORPUSCULAR HEMOGLOBIN 28.3 pg (28-32); MEAN CORPUSCULAR HGB CONC 31.8 g/dL (31-35); MEAN CORPUSCULAR VOLUME 89.1 fL (81-99); MONOCYTES # (AUTO) 0.5 (0.2-0.8); MONOCYTES % 6.4 % (4.4-11.3); NEUTROPHILS # (AUTO) 6.1 (2.1-6.9); NEUTROPHILS % 85.4 % (38.7-80.0); PLATELET COUNT 132 x10e3/uL (140-360); RED BLOOD COUNT 3.67 x10e6/uL (3.6-5.1); RED CELL DISTRIBUTION WIDTH 16.4 % (11.7-14.4)
[2018-11-13 17:22] LABS: INR 0.94; PROTHROMBIN TIME 13.4 seconds (11.9-14.5)
[2018-11-13 17:23] LABS: PARTIAL THROMBOPLASTIN TIME 52.9 seconds (23.8-35.5)
[2018-11-13 17:33] LABS: ANION GAP 21.4 mmol/L (8-16); CALCIUM 10.1 mg/dL (8.4-10.2); CREATININE, SERUM 3.56 mg/dL (0.57-1.11); MAGNESIUM 2.3 MG/DL (1.3-2.1); POTASSIUM 3.4 mmol/L (3.5-5.1)
[2018-11-13] MEDS ORDERED: DILTIAZEM HCL 100 ML IV SCH (17:45)
[2018-11-13 17:48] LABS: B-TYPE NATRIURETIC PEPTIDE2 1140.7 pg/mL (0-100)
[2018-11-13 17:52] LABS: CREATINE KINASE MB 3.7 ng/mL (0-5.0); THYROID STIMULATING HORMONE 5.99 uIU/mL (0.350-4.940)
[2018-11-13] MEDS ORDERED: DILTIAZEM HCL IV SOLN 125 MG in SODIUM CHLORIDE 0.9% 100 ML 100 ML IV PRN (18:00)
--- NOTE | 2018-11-13 18:54 | Diagnostic Imaging Report ---
CT BRAIN WO HISTORY: Altered mental status COMPARISON: Report from head CT dated 02/05/2017 (images not available at time of dictation) Technique: Noncontrast axial scans were obtained from skull base to the vertex. Coronal and sagittal reconstructions obtained from the axial data. One or more of the following dose reduction techniques were used: Automated exposure control, adjustment of the mA and/or kV according to patient size, and/or utilization of iterative reconstruction technique. DISCUSSION: Scalp/Skull: Unremarkable. Brain sulci: Mildly prominent. Ventricles: Compensatory dilatation. Extra-axial spaces: No masses or fluid collections. Carotid siphon and vertebral artery calcifications are present. Parenchyma: Mild bilateral deep white matter hypodensity is likely chronic microvascular ischemic change. Otherwise, no masses, hemorrhage, or large vascular territory acute infarct. Dural sinuses: No abnormal densities. Sellar/Suprasellar region: Intact. Skull base: Intact. Incidental findings: Wall up right mastoidectomy changes are present. Both ocular lenses are thinned. IMPRESSION: 1. No acute intracranial abnormalities. 2. Mild supratentorial chronic microvascular ischemic change. Mild generalized cerebral volume loss. Signed by: Dr. Rolando Javed M.D. on 11/13/2018 6:50 PM
[2018-11-13] MEDS ORDERED: METOPROLOL TARTRATE INJ 1 MG/ML VIAL IV NR (19:00)
[2018-11-13] MEDS ORDERED: MEROPENEM 500MG 500 MG in SODIUM CHLORIDE 0.9% 50ML 50 ML IV SCH (19:45)
[2018-11-13] MEDS ORDERED: VANCOMYCIN 1GM/NS 250 ML 250 ML IV ONE (19:45)
[2018-11-13 19:51] LABS: BILIRUBIN,URINE NEGATIVE (NEGATIVE); CLARITY,URINE CLOUDY (CLEAR); COLOR,URINE STRAW (YELLOW); KETONES,URINE NEGATIVE (NEGATIVE); LEUKOCYTE ESTERASE ,URINE 2+ (NEGATIVE); NITRITE,URINE NEGATIVE (NEGATIVE); PROTEIN,URINE DIPSTICK 2+ (NEGATIVE); URINE UROBILINOGEN 0.2 mg/dL (0.2 - 1)
[2018-11-13 19:59] LABS: BACTERIA,URINE MANY /HPF; WBC,URINE (MAN) >50 /HPF (0-5)
[2018-11-13] MEDS ORDERED: ALBUTEROL/IPRATROPIUM 3 ML NEB NEB PRN (20:00)
[2018-11-13] MEDS ORDERED: ONDANSETRON HCL INJ 2MG/ML 2ML 2 MG/ML VIAL IV PRN (20:00)
[2018-11-13] MEDS ORDERED: ASPIRIN 81 MG CHEW TAB PO NR (20:00)
[2018-11-13] MEDS ORDERED: METOPROLOL TARTRATE 25 MG TAB PO SCH (20:30)
--- NOTE | 2018-11-13 20:46 | Diagnostic Imaging Report ---
CHEST SINGLE (PORTABLE), 11/13/2018 4:59 PM Technique: CHEST SINGLE (PORTABLE) Comparison: 11/17/2018, 11/05/2018 Clinical history: Altered mental status Findings: See Impression Impression: Limited by portable technique, soft tissue attenuation. Overlying wires/leads. 1. Enlarged cardiomediastinal silhouette, partially obscured. Prior median sternotomy. 2. Diffuse opacities which may reflect a component of underlying edema and layering pleural fluid. Consider follow-up upright PA and lateral when feasible. Signed by: Dr Anne Marie Abraham MD on 11/13/2018 8:42 PM
[2018-11-13] MEDS ORDERED: FAMOTIDINE 20 MG/2 ML VIAL IV SCH (21:00)
[2018-11-13] MEDS ORDERED: OMEPRAZOLE20 MG PO (23:20)
[2018-11-13] MEDS ORDERED: AMITRIPTYLINE H50 MG PO (23:20)
[2018-11-13] MEDS ORDERED: LEVOTHYROXINE88 MCG PO (23:20)
[2018-11-13] MEDS ORDERED: DIALYVITE WITH1 EACH PO (23:20)
[2018-11-13] MEDS ORDERED: FUROSEMIDE40 MG PO (23:20)
[2018-11-13] MEDS ORDERED: ISOSORBIDE MON120 MG PO (23:20)
[2018-11-13] MEDS ORDERED: RENAGEL800 MG PO (23:20)
[2018-11-13] MEDS ORDERED: ALBUTEROL0.63 MG/3 NEB (23:20)
[2018-11-13] MEDS ORDERED: CLONAZEPAM0.5 MG PO (23:20)
[2018-11-13] MEDS ORDERED: ZOLPIDEM TARTRA10 MG PO (23:20)
[2018-11-13] MEDS ORDERED: SUCRALFATE1 GM PO (23:20)
[2018-11-14] VITALS (7 sets, daily range): BP systolic 104–130; BP diastolic 52–70
--- NOTE | 2018-11-14 00:33 | NUR ---
cardizem drip turned off. hr 70-90, afib. awake alert skin w/d resp nonlab. nad noted.
[2018-11-14 01:16] LABS: CREATINE KINASE MB 2.6 ng/mL (0-5.0)
--- NOTE | 2018-11-14 02:22 | NUR ---
DR GILMORE CHANGED ADMIT TO IMCU AND CANCELLED CARDIZEM DRIP. PT AWAKE ALERT SKIN W/D RESP NONLAB. NAD NOTED.
--- NOTE | 2018-11-14 03:41 | NUR ---
PATIENT RECEIVED FROM EMERGENCY DEPARTMENT PER STRETCHER AT 0302; SHE'S ALERT AND ORIENTED TO SELF ONLY, CONFUSION NOTED WHILE SPEAKING WITH THE PATIENT. LUNGS SOUNDS DIMINISHED, PURSE LIP BREATHING NOTED. O2@2L/NC SHE DENIES SHORTNESS OF BREATH. STAGE 2 PRESSURE ULCER TO THE SACRUM, LARGE BRUISE TO THE LEFT LOWER ABDOMEN, REDNESS TO THE RIGHT ABDOMINAL FOLD, REDNESS TO THE PERINEAL AND GENERALIZED EDEMA TO THE ARMS. CASTANEDA CATHETER INTACT WITH SMALL AMOUNT OF MILKY COLOR URINE NOTED IN THE COLLECTING TUBE. PATIENT INCONTINENT OF STOOL, KEPT CLEAN AND DRY, SKIN PROTECTANT APPLIED TO THE SACRUM. SHE DENIES PAIN, CALL LIGHT WITHIN EASY REACH, BED ALARM ON.
--- NOTE | 2018-11-14 06:33 | NUR ---
REPOSITION TO THE LEFT SIDE, ASSISTED WITH ADLS, NO RESPIRATORY DISTRESS OBSERVED.
--- NOTE | 2018-11-14 08:00 | NUR ---
pt resting in bed. able to make needs known. alert and oriented to person and place. vs stable. will continue to monitor.
--- NOTE | 2018-11-14 08:54 | Consultation ---
DATE OF CONSULTATION: November 13, 2018 CARDIOLOGY CONSULTATION REASON FOR CONSULTATION: AFib with RVR. CONSULTING PHYSICIAN: Dr. Ramírez HPI: This is a 73-year-old female that presented with altered mental status and tachycardia. According to the patient and the bedside nurse, she was at dialysis center. Heart rate starting going in the 130s and 140s, and she was a little confused that she was brought to the emergency room for evaluation. She stated she did not remember what happened. She had a Poe catheter inserted while she was being transported over here. She was recently admitted and discharged last week with the same symptoms. She denied any chest pain, any palpitations, any diaphoresis, any headache, nausea, or vomiting. Troponin was negative. BNP was 1140. Chest x-ray showed diffuse opacities, which may reflect a component of underlying edema and layering pleural fluid. PAST MEDICAL HISTORY: Hypertension, end-stage renal disease, on dialysis, CAD with CABG, AFib, anemia, systolic CHF, hypothyroidism, lower extremity neuropathy, hyperlipidemia, altered mental status, obesity. PAST SURGICAL HISTORY: Breast surgery CABG, tubal ligation, and breast reduction. FAMILY HISTORY: Positive for hypertension. SOCIAL HISTORY: She lives at home with family. No smoking but drinks occasionally. PHYSICAL EXAMINATION VITAL SIGNS: Temperature 97.9, heart rate 104, respirations 21 on 2 L nasal cannula, blood pressure 111/52. GENERAL: She is awake, alert and oriented times 3. HEENT: Mucous membrane moist. NECK: Supple. LUNGS: Bilateral with decreased breath sounds. CARDIOVASCULAR: Irregularly irregular. ABDOMEN: Soft. NEUROLOGICAL: Intact. EXTREMITIES: With trace edema, lower. LABS: Sodium 135, potassium 3.4, chloride 92, CO2 25, BUN 26, creatinine 3.56, glucose 110. White blood cells 7.17, hemoglobin 10.4, hematocrit 32.7, and platelets 132,000. PT 13.4, PTT 52.9 and INR 0.94. IMPRESSION 1. Altered mental status. 2. Atrial fibrillation with rapid ventricular response. 3. Bjmem-dl-bfcevny systolic congestive heart failure. 4. End-stage renal disease, on dialysis. 5. Hypothyroidism. 6. Hyperlipidemia. 7. Hypertension. 8. History of bilateral lower extremity neuropathy. ASSESSMENT AND PLAN 1. She had an echocardiogram done last week that showed mild to moderately impaired systolic function with EF of 40%. 2. Her heart rate fluctuates. Will go ahead and continue beta maninder and amiodarone. 3. Her hemoglobin is stable. No sign of GI bleed. Will go ahead and start her on low dose Xarelto. Risks and benefits explained to her. She agreed. 4. Will continue her home medications. 5. Will go ahead and get bilateral carotid Doppler to rule out occlusion. Further cardiac workup pending clinical course. Thank you for this consultation. DICTATED BY JUNIE WALTON NP Job#: [id number] COLLIN
[2018-11-14] MEDS ORDERED: NON-FORMULARY MEDICATION (Pravastatin Sodium 10 MG) PO SCH (09:00)
[2018-11-14] MEDS ORDERED: GABAPENTIN 400 MG CAP PO SCH (09:00)
[2018-11-14] MEDS ORDERED: CLONAZEPAM 0.5 MG TAB PO PRN (09:00)
[2018-11-14] MEDS ORDERED: ONDANSETRON HCL 4 MG ORAL DISINTEGRATING TAB PO PRN (09:00)
[2018-11-14] MEDS ORDERED: PANTOPRAZOLE SOD 40 MG TABEC PO SCH (09:00)
[2018-11-14] MEDS ORDERED: FAMOTIDINE 20 MG/2 ML VIAL IV SCH (09:00)
[2018-11-14] MEDS ORDERED: LEVOTHYROXINE SODIUM 88 MCG TAB PO SCH (09:00)
--- NOTE | 2018-11-14 10:00 | NUR ---
per dr anguiano, see if dr edwards will have pt dialysis today and pt may be able to dc early tomorrow so she can do her MWF dialysis outpatient as already established.
[2018-11-14] MEDS: ASPIRIN 81 MG ENTERIC COATED PO SCH (10:29)
[2018-11-14] MEDS: CEFEPIME 1GM/NS 0.9% 50 ML 50 ML IV SCH (10:29)
[2018-11-14] MEDS: ALLOPURINOL 100 MG TAB PO SCH (10:30)
[2018-11-14] MEDS: SUCRALFATE 1 GM TAB PO SCH ×2 (10:30→16:06)
[2018-11-14] MEDS: PANTOPRAZOLE SOD 40 MG TABEC PO SCH (10:30)
[2018-11-14] MEDS: RIVAROXABAN 15 MG TABLET PO SCH (10:30)
[2018-11-14] MEDS: AMIODARONE HCL 200 MG TAB PO SCH (10:30)
[2018-11-14] MEDS: SEVELAMER CARBONATE 800 MG TAB PO SCH ×3 (10:30→21:00)
[2018-11-14] MEDS: FUROSEMIDE 40 MG TAB PO SCH ×2 (10:30→16:06)
[2018-11-14] MEDS: METOPROLOL TARTRATE 50 MG TAB PO SCH ×2 (10:30→17:11)
--- NOTE | 2018-11-14 13:45 | NUR ---
CASE MANAGEMENT INITIAL ASSESSMENT Onion Topper to bedside to discuss plan of care with patient/family. CM/SW role and care transitions discussed. Anticipated discharge plan discussed along with duration of care. CM/SW discussed patients right to make decisions in care. CM/SW work hours given. Patient lives: [facility] HOME W DTR. Admit/Transfer: ER; PT DOES NOT REMEMBER WHEN SHE WAS ADMITTED. Hospital/ER visits since last admit: [facility] 11/04/2018 - 11/09/2018 POA/Emergency contact: NIDIA BILLINGSLEY @ [phone] Current/Previous Home Health: NONE PCP/Follow-up Care: RUBÉN MORROW Current/Previous DME: WC, WALKER, HOME O2, [place], [facility] Medications (referring to index hospitalization or the first time you were in the hospital) a. Were changes made in your medications when you were in the hospital on 11/04/2018 - 11/09/2018 @ [facility]? Not sure Explain: PT IS VERY UNCLEAR ON MEDS AT LAST DC. STATES SHE RECEIVES TOO MANY MEDS FROM LOTS OF PEOPLE. Note: If no or not sure, please skip to question d b. Did you understand the changes? Yes No Explain: c. Were you able to obtain your new medications right away? Yes No n/a SNF only Explain: d. Were you able to take your medications like the doctor wanted you to? Yes Explain: e. Did the hospital give you an accurate, easy to understand list of medications when you left? Yes Explain: Scale of 1-10 how comfortable does patient feel with disease management in outpatient settin Other Services: HD MWF @ [facility], PROVIDER 28HRS/WEEK Employment Status: RETIRED Areas of Concerns: PT CANNOT REMEMBER WHEN SHE WAS ADMITTED. STATES SHE WAS PLACED ON A TABLE AND GIVEN A BEDPAN. STATES HER DTR WAS NOT THERE AND SHE STAYED THERE ALL NIGHT AND WAS MOVED INTO A ROOM ABOUT 3AM. Referral Needs: HOME HEALTH POSSIBLY; PT IS PLEASANTLY CONFUSED. ORIENTED TO PERSON AND PLACE, BUT COULD NOT REMEMBER WHAT DAY IT WAS. Education Needs: NONE AT THIS TIME IMM/ARIAS given and signed (if applicable): GIVEN 11/13/18, BUT PT UNABLE TO SIGN. WILL F/U. Goal for discharge: HOME W OUTPATIENT HD. CM/SW left business card at the bedside with contact information. Name and number was also written on the patients whiteboard. Patient verbalized understanding of discussion. CM will follow-up with ongoing discharge and transition of care needs.
--- NOTE | 2018-11-14 14:04 | NUR ---
attempt to call report, unable dt nurse @lunch.
--- NOTE | 2018-11-14 14:40 | NUR ---
pt to trans to 203, report called. pt vs stable.
--- NOTE | 2018-11-14 16:05 | NUR ---
ROUNDS WITH DR. STONE. ORDERS REC'D. PER DR. STONE'S REQUEST, [facility] CALLED TO SCHEDULE EARLY AM HD. PT TO D/C AFTER.
--- NOTE | 2018-11-14 16:55 | Consultation ---
DATE OF CONSULTATION: November 14, 2018 RENAL CONSULTATION HISTORY OF PRESENT ILLNESS: Ms. Luz Garcia known to me, a 73-year-old patient with underlying history of COPD, CHF, end-stage renal disease, history of anxiety, hyperlipidemia, GERD, hypertension, coronary artery disease, peripheral neuropathy. History of prior C. diff, history congestive heart failure, coronary artery bypass surgery. History of prior craniotomies, anemia multifactorial, secondary hypoparathyroidism. Admitted with apparent confusion. According to the daughter, they suspect a urinary tract infection. She got last dialyzed yesterday. Urine culture growing gram-negative bacilli. So far blood tests show a white count of 7.1, hemoglobin 10.4. Potassium 3.4. Sodium 135. Calcium 10.1. BNP level 1140. Chest x-ray, please see official report, shows diffuse opacities which may suggest component of underlying edema with layering pleural effusion. ALLERGIES: TO SULFA AND LISINOPRIL. SOCIAL HISTORY: Patient continues to smoke. Does not drink. FAMILY HISTORY: Significant for hypertension. MEDICATIONS: Currently on Carafate 1 gram p.o. b.i.d. Renagel 1600 mg p.o. t.i.d. with meals. Xarelto 15 mg daily. Pravastatin 10 mg at bedtime. Protonix 40 mg daily. Metoprolol 50 mg p.o. b.i.d. Gabapentin 400 mg p.o. t.i.d., which I am going to stop given her history of confusion. According to daughter, on clonazepam p.r.n. anxiety. Allopurinol 100 mg daily. Amiodarone 200 mg daily. Aspirin 81 mg once a day. Apparently received 1 bag of IV normal saline. Started on cefepime. PHYSICAL EXAMINATION: GENERAL: Awake, alert, lying down, in no apparent distress. VITALS: Blood pressure of 130/70. Pulse rate 92. Afebrile. Respiratory rate 17 with oxygen saturation 99%, 2 liters nasal cannula. HEAD AND NECK: Cornea clear. Oral mucosa moist. LUNGS: End-expiratory rhonchi. No rales. HEART: S1, S2 audible. ABDOMEN: Otherwise soft, nontender. LOWER EXTREMITY EXAMINATION: No edema. IMPRESSION: 1. Complicated urinary tract infection. Afebrile. No evidence of sepsis. 2. Hypertension. 3. Chronic obstructive pulmonary disease. 4. Coronary artery disease. 5. Mild fluid overload. 6. End-stage renal disease status post dialysis yesterday but no acute indications for dialysis today. PLAN: Plan on dialysis in the morning. Will place on renal diet. Agree with the choice of antibiotics. Gabapentin has been discontinued. Please see assessment above. Job#: [id number] EV
[2018-11-14] MEDS: ISOSORBIDE MONONITRATE 30 MG TAB CR PO SCH (21:00)
[2018-11-14] MEDS: PRAVASTATIN 20 MG TAB PO SCH (21:00)
[2018-11-14] MEDS ORDERED: ISOSORBIDE MONONITRATE 120 MG PO SCH (21:00)
[2018-11-14] MEDS: SERTRALINE HCL 100 MG TAB PO SCH (21:00)
[2018-11-15 00:04] VITALS: BP 110/71
[2018-11-15 04:30] VITALS: BP 114/69
[2018-11-15 04:45] LABS: BASOPHILS % 0.2 % (0.0-1.0); EOSINOPHILS # (AUTO) 0.2 (0.0-0.4); EOSINOPHILS % 2.8 % (0.0-6.0); HEMATOCRIT 28.7 % (34.2-44.1); HEMOGLOBIN 8.8 g/dL (12.0-16.0); LYMPHOCYTES # (AUTO) 0.6 (1.0-3.2); LYMPHOCYTES % 9.2 % (18.0-39.1); MEAN CORPUSCULAR HEMOGLOBIN 27.8 pg (28-32); MEAN CORPUSCULAR HGB CONC 30.7 g/dL (31-35); MEAN CORPUSCULAR VOLUME 90.8 fL (81-99); MONOCYTES # (AUTO) 0.5 (0.2-0.8); MONOCYTES % 8.7 % (4.4-11.3); NEUTROPHILS # (AUTO) 4.8 (2.1-6.9); NEUTROPHILS % 78.3 % (38.7-80.0); PLATELET COUNT 108 x10e3/uL (140-360); RED BLOOD COUNT 3.16 x10e6/uL (3.6-5.1); RED CELL DISTRIBUTION WIDTH 16.3 % (11.7-14.4)
[2018-11-15 05:03] LABS: ANION GAP 19.1 mmol/L (8-16); CREATININE, SERUM 6.37 mg/dL (0.57-1.11); POTASSIUM 5.1 mmol/L (3.5-5.1)
[2018-11-15] MEDS: LEVOTHYROXINE SODIUM 88 MCG TAB PO SCH (06:12)
[2018-11-15 07:54] VITALS: BP 114/69
[2018-11-15 08:40] VITALS: BP 114/69
--- NOTE | 2018-11-15 08:40 | NUR ---
Pt received resting in bed. Alert and oriented x2 with periods of confusion. Oriented to staff and surroundings. Encouraged to press call roy if help needed. Pt with left arm AV graft. All meds given as ordered. Call roy within reach. Emotional support given. Will monitor
[2018-11-15] MEDS: FUROSEMIDE 40 MG TAB PO SCH ×2 (08:47→15:27)
[2018-11-15] MEDS: SEVELAMER CARBONATE 800 MG TAB PO SCH ×3 (08:47→17:00)
[2018-11-15] MEDS: ALLOPURINOL 100 MG TAB PO SCH (08:47)
[2018-11-15] MEDS: ASPIRIN 81 MG ENTERIC COATED PO SCH (08:47)
[2018-11-15] MEDS: SUCRALFATE 1 GM TAB PO SCH ×2 (08:47→15:27)
[2018-11-15] MEDS: PANTOPRAZOLE SOD 40 MG TABEC PO SCH (08:47)
[2018-11-15] MEDS: AMIODARONE HCL 200 MG TAB PO SCH (08:47)
[2018-11-15] MEDS: CEFEPIME 1GM/NS 0.9% 50 ML 50 ML IV SCH (09:00)
--- NOTE | 2018-11-15 09:03 | NUR ---
IMM letter delivered and explained to pt. She verbalized understanding. Signed copy placed in chart. Copy to pt.
[2018-11-15] MEDS ORDERED: SODIUM CHLORIDE 0.9% 250ML 250 ML ONE (09:51)
--- NOTE | 2018-11-15 10:00 | NUR ---
Dialysis center called for pt. Will follow up
--- NOTE | 2018-11-15 11:32 | Discharge Summary ---
Patient on observation. PCP is Dr. Moe Sanford. FINAL DIAGNOSES 1. Simple urinary tract infection with Escherichia coli, sensitive to cephalosporin. 2. Chronic congestive heart failure due to chronic arrhythmia and end-stage renal disease on dialysis, not restricting fluids. SUMMARY: A 73-year-old female who came in with some confusion secondary to urinary tract infection. It turned out to be E. coli. The patient is otherwise stable. She is getting dialysis but not restricting her fluid. The patient is otherwise stable. She is completely coherent today. She did receive 2 doses of Rocephin. The patient is otherwise stable. I would suggest stop the amitriptyline, the aspirin, and the Ambien at night. Patient may continue with Xarelto. She will get dialysis today and after that continue with dialysis as an outpatient. Of note, the patient refused skilled placement. Job#: [id number] DAVEY
[2018-11-15 11:57] VITALS: BP 121/61
[2018-11-15] MEDS: METOPROLOL TARTRATE 50 MG TAB PO SCH ×2 (11:58→17:00)
--- NOTE | 2018-11-15 13:37 | NUR ---
WOUND CARE CONSULTATION - INITIAL EVALUATION Patient admitted from Group Home to ER for AMS, A-Fib with RVR, CHF, ESRD, UTI. HX: CHF, ESRD, UTI, Non-Healing Mid Gluteal Ulcer. Patient in bed calm and in good spirits. - Jeremiah Score 17 - Moderate PUP - Alternating Pressure Air Mattress - Hard of Hearing from Right Side - Able to Stand - Unsteady gait. Fall Risk. - Diapered - Alternating Pressure Air Mattress in Place - Able to Turn Self without assistance. - Complains of tenderness to her sacro-gluteal region for some time. States wound on her bottom has been there for >2-3 months. - Linear Ulcer to mid-gluteal cleft - 3cm - appears to be healing-consistent with shear friction forces, pink base, no redness, no swelling but does feel tenderness to area. - No other wounds/ rash identified. - Education provided on ways to avoid shear friction. Will need continued reinforcement. [place] [facility] [place] IMPRESSION: Mid-Gluteal Cleft - Non-Healing, Shear Friction Stage II P.U. Present On Admission. RECOMMENDATION: 1. Mid-Gluteal Fold - Shear Friction Stage II P.U., P.O.A. - Cleanse area with Mild Soap And Water & Pat Dry Thoroughly Daily and PRN Soiling THEN: - Apply Calazime Barrier Cream q12 and PRN Soiling. 2. Shear Friction Precautions. 3. Chair Cushion when OOB. 4. Continue Alternating Pressure Air Mattress. 5. Encourage Patient To Turn and Reposition every 2 Hours. Thank you for consulting with Wound Care. Addendum: 11/15/18 at 1356 by Luis Antonio Mayen RN Amended: Links added.
--- NOTE | 2018-11-15 15:11 | NUR ---
Spoke to Flora at HD center who stated that someone will be here later to Dialyze pt. Dr. Baez aware. Dr. Gallego notified. Will follow up
[2018-11-15] MEDS: RIVAROXABAN 15 MG TABLET PO SCH (15:27)
[2018-11-15 15:46] VITALS: BP 149/85
--- NOTE | 2018-11-15 16:53 | NUR ---
Nutrition Intervention Note RD Recommendation(s) for Physician: -Rec renal diet as medically appropriate -Rec Nepro BID to promote protein-calorie intake -Rec renal Mvi w/ mineral and vitamin C for wound healing -RD provided education on renal diet on 11/15. Plan of Care: RD following, monitoring for tolerance and adequacy, ONS rec Nutrition reason for involvement: Diagnosis RD Assessment 11/15- Chart reviewed. 73yo F, who was admitted for UTI. 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 Pt denied chewing/swallowing problems and nausea/vomiting. Pt reported fair appetite with ~50% meal intake today. No GI complains noted. LBM 11/15. Pt requested for more information on renal diet. RD provided diet education as requested. Will continue to monitor and follow. Principal Problems/Diagnoses: 1. Simple urinary tract infection with Escherichia coli, sensitive to cephalosporin. 2. Chronic congestive heart failure due to chronic arrhythmia and end-stage renal disease on dialysis, not restricting fluids. PMH: Hypertension, end-stage renal disease, on dialysis, CAD with CABG, AFib, anemia, systolic CHF, hypothyroidism, lower extremity neuropathy, hyperlipidemia, altered mental status, obesity. GI: abdomen soft, non-tender, LBM 11/15 Skin: Mid-Gluteal Cleft - Non-Healing, Shear Friction Stage II P.U. Present On Admission. Labs: (11/15) BUN 50H, Creatinine 6.37 H Meds: carafate, xarelto, lasix, renvela, abx, protonix, synthroid Ht: 60in Wt: 183lb BMI: 35.7kg/m2 IBW: 100lb Malnutrition Evaluation (11/15/2018) The patient does not meet criteria for a specified degree of malnutrition at this time. Will re-evaluate at follow-up as appropriate. Nutrition Prescription (Diet Order): cardiac diet Estimated Nutritional Needs: Calories: 1012 1380kcal (25-30kcal/kg/d) Weight used: IBW Protein: 55 69g (1.2-1.5g/kg/d) Weight used: IBW Diet Adequacy: Meeting calorie needs, Not meeting protein needs Diet Education Needs Assessment: Diet education indicated and patient agreeable. Learner(s): pt Time spent: 30minutes Barriers: No barriers identified. Cultural/Language Modifications: No cultural/language modifications noted. Pt speaks Welsh. Readiness: Pt eager to learn. Method: Handouts, explanation Topics: renal diet, protein & energy booster, fluids restriction Understanding/Compliance: Expect good understanding/compliance from pt. Will benefit from reinforcement. All questions have been answered. Nutrition Care Level: low Nutrition Diagnosis: Increased protein needs related to altered skin integrity as evidenced by pressure ulcer II. Goal: Patient will meet 75-100% of estimated needs by follow up Progress: N/A Interventions: Mineral-modified diet, Commercial beverage, Survival information, recommended Modifications, Skill Development, Multivitamin/mineral supplement therapy Monitoring/Evaluation: Total energy intake, Total protein intake, Modified diet, Liquid supplement, Weight change, Ability to recall nutrition goals, Level of knowledge, Self management Signed: Fariba Martinez MS, RD, LD
--- NOTE | 2018-11-15 18:14 | NUR ---
Called Dialysis center, and spoke to Smiley. Dialysis nurse paged for the 3rd time
[2018-11-15] MEDS ORDERED: SODIUM CHLORIDE 0.9% 1000ML 1,000 ML ONE (18:40)
--- NOTE | 2018-11-15 19:20 | NUR ---
Received change of shift report from AM nurse. Bedside report completed
[2018-11-15] MEDS: ISOSORBIDE MONONITRATE 30 MG TAB CR PO SCH (21:00)
[2018-11-15] MEDS: PRAVASTATIN 20 MG TAB PO SCH (21:00)
[2018-11-15] MEDS: SERTRALINE HCL 100 MG TAB PO SCH (21:00)
[2018-11-16 00:23] VITALS: BP 133/51
[2018-11-16 05:31] VITALS: BP 116/66
[2018-11-16] MEDS: LEVOTHYROXINE SODIUM 88 MCG TAB PO SCH (06:00)
--- NOTE | 2018-11-16 06:26 | NUR ---
Paged Dr Gallego regarding patient d/c home but did not go due to dialysis completed after MN. Also informed Dr that patient had arobic blood cultue that tested positive cocci in pair. states d/c patient home with tereso. aware. D/C lakeisha with 100cc of urine.
[2018-11-16 07:46] VITALS: BP 128/74
[2018-11-16 08:16] VITALS: BP 128/74
[2018-11-16] MEDS: SEVELAMER CARBONATE 800 MG TAB PO SCH (08:16)
[2018-11-16] MEDS: PANTOPRAZOLE SOD 40 MG TABEC PO SCH (08:16)
[2018-11-16] MEDS: SUCRALFATE 1 GM TAB PO SCH (08:16)
[2018-11-16] MEDS: METOPROLOL TARTRATE 50 MG TAB PO SCH (08:16)
[2018-11-16] MEDS: ASPIRIN 81 MG ENTERIC COATED PO SCH (08:16)
[2018-11-16] MEDS: AMIODARONE HCL 200 MG TAB PO SCH (08:16)
[2018-11-16] MEDS: RIVAROXABAN 15 MG TABLET PO SCH (08:16)
[2018-11-16] MEDS: ALLOPURINOL 100 MG TAB PO SCH (08:16)
[2018-11-16] MEDS: FUROSEMIDE 40 MG TAB PO SCH (08:16)
[2018-11-16] MEDS: CEFEPIME 1GM/NS 0.9% 50 ML 50 ML IV SCH (08:16)
== END 2018-11-16 11:10 | disposition home or self-care (01) | DRG 291 ==
LOC: ER 16:54 → ERHOLD 20:17 → UNDODISIN 11-14 03:11 → IMCU 11-14 03:24 → MED/SURG2 11-14 15:31
PROVIDERS: ADMIT Internal Medicine; ATTEND Internal Medicine
PROC: 5A1D70Z Performance of Urinary Filtration, Intermittent, Less than 6 Hours Per Day (ICD-10-PCS; principal; 2018-11-15)
DX: I13.2 Hypertensive heart and chronic kidney disease with heart failure and with stage 5 chronic kidney disease, or end stage renal disease (principal); N18.6 End stage renal disease; I50.23 Acute on chronic systolic (congestive) heart failure; N39.0 Urinary tract infection, site not specified; N25.81 Secondary hyperparathyroidism of renal origin; B96.20 Unspecified Escherichia coli [E. coli] as the cause of diseases classified elsewhere; Z16.19 Resistance to other specified beta lactam antibiotics; Z99.2 Dependence on renal dialysis; E03.9 Hypothyroidism, unspecified; G62.9 Polyneuropathy, unspecified; I48.91 Unspecified atrial fibrillation; J44.9 Chronic obstructive pulmonary disease, unspecified; K21.9 Gastro-esophageal reflux disease without esophagitis; I25.10 Atherosclerotic heart disease of native coronary artery without angina pectoris; Z95.1 Presence of aortocoronary bypass graft; D64.9 Anemia, unspecified
CPT/HCPCS: 36415; 51700; 70450; 71045; 80048; 80053; 80162; 81001; 82140; 82550; 82553; 83605; 83690; 83735; 83880; 84443; 84484; 85025; 85610; 85730; 86704; 86705; 86706; 87040; 87071; 87086; 87186; 87205; 87340; 90962; 93005; 93880; 97139; 99285; J0692; J2185; J3370; J7030; J7050

== ENCOUNTER → 2019-05-28 | Outpatient (CLI) | payer MEDICARE ==
[~2019-05-28] MED LIST changes: +ALBUTEROL0.63 MG/3 NEB; +AMITRIPTYLINE H50 MG PO; +CLONAZEPAM0.5 MG PO; +DIALYVITE WITH1 EACH PO; +ISOSORBIDE MON120 MG PO; +LEVOTHYROXINE88 MCG PO; +OMEPRAZOLE20 MG PO; +RENAGEL800 MG PO; +SUCRALFATE1 GM PO; +ZOLPIDEM TARTRA10 MG PO
== END ==
LOC: RAD 08:30
PROVIDERS: ATTEND Family Medicine
DX: R60.0 Localized edema (principal)
CPT/HCPCS: 93971

== ENCOUNTER 2019-07-16 12:20 | Inpatient (IN) | payer MEDICARE ==
[~2019-07-16] VITALS: Ht 157.5 cm; Wt 78.5 kg
[2019-07-16 12:53] LABS: BASOPHILS % 0.4 % (0.0-1.0); EOSINOPHILS # (AUTO) 0.1 (0.0-0.4); EOSINOPHILS % 1.5 % (0.0-6.0); HEMATOCRIT 34.2 % (34.2-44.1); HEMOGLOBIN 10.2 g/dL (12.0-16.0); LYMPHOCYTES # (AUTO) 0.5 (1.0-3.2); LYMPHOCYTES % 11.5 % (18.0-39.1); MEAN CORPUSCULAR HEMOGLOBIN 28.2 pg (28-32); MEAN CORPUSCULAR HGB CONC 29.8 g/dL (31-35); MEAN CORPUSCULAR VOLUME 94.5 fL (81-99); MONOCYTES # (AUTO) 0.4 (0.2-0.8); MONOCYTES % 7.6 % (4.4-11.3); NEUTROPHILS # (AUTO) 3.6 (2.1-6.9); NEUTROPHILS % 78.8 % (38.7-80.0); PLATELET COUNT 92 x10e3/uL (140-360); RED BLOOD COUNT 3.62 x10e6/uL (3.6-5.1); RED CELL DISTRIBUTION WIDTH 16.1 % (11.7-14.4)
[2019-07-16 13:06] LABS: INR 0.98; PARTIAL THROMBOPLASTIN TIME 30.8 seconds (23.8-35.5); PROTHROMBIN TIME 13.5 seconds (11.9-14.5)
[2019-07-16 13:13] LABS: ALANINE AMINOTRANSFERASE 16 IU/L (0-55); ALBUMIN 3.6 g/dL (3.5-5.0); ALKALINE PHOSPHATASE 118 IU/L (40-150); ANION GAP 20.8 mmol/L (8-16); BLOOD UREA NITROGEN 30 mg/dL (7-26); BUN/CREATININE RATIO 4 (6-25); CARBON DIOXIDE 28 mmol/L (22-29); CHLORIDE 99 mmol/L (98-107); CREATINE KINASE 25 IU/L (29-168); CREATININE, SERUM 7.67 mg/dL (0.57-1.11); EST GLOMERULAR FILTRATION RATE 5 ML/MIN (60-); GLUCOSE 100 mg/dL (74-118); POTASSIUM 3.8 mmol/L (3.5-5.1); SODIUM 144 mmol/L (136-145)
[2019-07-16] MEDS ORDERED: DILTIAZEM HCL VIAL 5 ML ONE (13:15)
--- NOTE | 2019-07-16 13:31 | Diagnostic Imaging Report ---
EXAMINATION: CHEST SINGLE (PORTABLE) INDICATION: Shortness of breath COMPARISON: Chest radiograph of 11/13/2018, chest CT of 11/05/2018 FINDINGS: LINES/TUBES:EKG leads overlie the chest. LUNGS:The lungs are moderately inflated. There is perihilar fullness and indistinctness of the pulmonary vasculature. There is left basilar opacity silhouetting the left richard diaphragm. PLEURA:Layering left pleural effusion. No pneumothorax. MEDIASTINUM:Cardiomediastinal silhouette is stably enlarged. Atherosclerotic calcifications of the thoracic aorta. Sternotomy wires unchanged. BONES/SOFT TISSUES:No acute osseous injury. ABDOMEN:No free air under the diaphragm. IMPRESSION: Cardiomegaly and pulmonary edema. Layering left pleural effusion. Patchy left basilar airspace opacity, more likely subsegmental atelectasis than superimposed aspiration or pneumonia. Signed by: Odalys Dickerson MD on 07/16/2019 1:28 PM
[2019-07-16] MEDS ORDERED: DILTIAZEM HCL 5 MG/ML 5 ML VIAL IV ONE (14:00)
[2019-07-16] MEDS ORDERED: ASPIRIN 81 MG CHEW TAB PO ONE (14:30)
[2019-07-16 14:31] LABS: MAGNESIUM 2.1 MG/DL (1.3-2.1)
[2019-07-16] MEDS ORDERED: DILTIAZEM HCL 5 MG/ML 5 ML VIAL IV STA (14:38)
[2019-07-16] MEDS ORDERED: DILTIAZEM HCL 125 ML IV SCH (15:15)
--- NOTE | 2019-07-16 15:18 | NUR ---
INFORMED ICU OF NEED FOR DYALYSIS PER DR STONE
--- NOTE | 2019-07-16 16:39 | NUR ---
[facility] PER DR STONE/JENNYFER
[2019-07-16 19:00] VITALS: BP_SYST 105; BP_SYST 146; BP_DIAS 62; BP_DIAS 63
[2019-07-16 19:03] LABS: CREATINE KINASE MB 1.1 ng/mL (0-5.0)
--- NOTE | 2019-07-16 19:23 | NUR ---
Called Dr. Lagos for new consult regarding sacral (tunneling) wound & left message on answering service. Will continue to implement interventions to reduce pressure on sacral area.
[2019-07-16 20:00] VITALS: BP_SYST 105; BP_SYST 98; BP_DIAS 62; BP_DIAS 67
[2019-07-16 21:00] VITALS: BP 144/56
[2019-07-16 22:00] VITALS: BP 146/68
--- NOTE | 2019-07-16 22:24 | NUR ---
Patient requesting sleeping aid & pain medication, paged Dr. Gallego @[phone]. New orders for Oxycodone 10-325 Q6 PRN & melatonin.
[2019-07-16 23:00] VITALS: BP 131/79
[2019-07-16] MEDS: OXYCODONE/ACETAMINOPHEN 5-325 1 EACH TABLET PO PRN (23:02)
[2019-07-16 23:23] LABS: CREATINE KINASE MB 1.1 ng/mL (0-5.0)
[2019-07-16] MEDS ORDERED: SODIUM CHLORIDE 0.9% 1000ML 2,000 ML ONE (23:50)
--- NOTE | 2019-07-16 23:54 | Consultation ---
DATE OF CONSULTATION: 07/16/2019 HISTORY OF PRESENT ILLNESS: The patient is very well known to me. 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 Presented with shortness of breath. She was last dialyzed Sunday, came here and was found to have right bundle-branch block on ECG with AFib and RVR. Denies chest pain, shortness of breath, or cough. She is lying supine on oxygen with complains of shortness of breath. Dialysis nurse has been paged stat. We are awaiting their arrival. Labs show white count of 4.6, hemoglobin 10.2 with a sodium 144, potassium 3.8, and creatinine 7.6. BNP 1130. ALLERGIES: SULFA AND LISINOPRIL. Chest x-ray was done here recently shows clearing of left pleural effusion with cardiomegaly and evidence of pulmonary edema. CURRENT MEDICATIONS: Home medications have not been reconciled yet. Currently started on Cardizem drip for rate control. SOCIAL HISTORY: The patient does not smoke or drink. FAMILY HISTORY: Significant for hypertension and diabetes. PHYSICAL EXAMINATION: GENERAL: Awake, alert, and oriented x3, lying supine, in no apparent distress. VITAL SIGNS: Blood pressure 121/63, pulse rate 100, irregularly irregular, respiratory rate 22 with an oxygen saturation 97% on oxygen. HEAD AND NECK: Cornea clear. Mucosa moist. Neck veins, JVD noted. LUNGS: Bibasilar rales. HEART: Irregularly irregular rhythm. ABDOMEN: Otherwise soft and nontender. Obese abdomen. No apparent visceromegaly. No lower extremity. No edema. IMPRESSION: Evidence of congestive heart failure, fluid overload, hypertension, atrial fibrillation with RVR. Electrolytes noted as a potassium of 3.8. PLAN: Plan on urgent hemodialysis. She also has a sacral decubitus with putrid smell. I will have wound care Dr. Babin come by and assess and treat accordingly and defer antibiotics to him. In the mean time, I will consult the dialysis nurse on a stat basis for stat dialysis. Place on a renal diet, fluid restriction, O2 per oxygen protocol. Further management per Cardiology. MD MARY Leonard/BAMBI /[id number]
[2019-07-17] VITALS (25 sets, daily range): BP systolic 91–165; BP diastolic 59–101
[2019-07-17] MEDS ORDERED: NON-FORMULARY MEDICATION (Pravastatin Sodium 10 MG) PO SCH (09:00)
[2019-07-17] MEDS: [UNRECOGNIZED DRUG - MIXTURE] PO SCH (09:00)
[2019-07-17] MEDS ORDERED: AMIODARONE HCL 200 MG TAB PO SCH (09:00)
[2019-07-17] MEDS ORDERED: ALBUTEROL SULF 0.083% NEB SOLN 3 ML NEB NEB PRN (09:00)
[2019-07-17] MEDS: SUCRALFATE 1 GM TAB PO SCH ×2 (09:36→16:45)
[2019-07-17] MEDS: METOPROLOL TARTRATE 50 MG TAB PO SCH ×2 (09:37→16:46)
[2019-07-17] MEDS: CLONAZEPAM 0.5 MG TAB PO SCH ×3 (09:37→20:24)
[2019-07-17] MEDS: GABAPENTIN 400 MG CAP PO SCH ×3 (09:37→20:24)
[2019-07-17] MEDS: ALLOPURINOL 100 MG TAB PO SCH (09:37)
[2019-07-17] MEDS: CEFTRIAXONE SOD 1 GM/NS 50 ML 50 ML IV SCH (09:37)
[2019-07-17] MEDS: FUROSEMIDE 40 MG TAB PO SCH ×2 (09:37→16:46)
[2019-07-17] MEDS: OXYCODONE/ACETAMINOPHEN 5-325 1 EACH TABLET PO PRN (10:33)
[2019-07-17] MEDS: METRONIDAZOLE 500MG/NS 100ML 100 ML IV SCH ×2 (10:33→17:23)
[2019-07-17] MEDS: TIOTROPIUM 18 MCG INH POWDER INH SCH (10:37)
[2019-07-17] MEDS: SEVELAMER CARBONATE 800 MG TAB PO SCH ×2 (12:20→16:46)
[2019-07-17] MEDS: LEVOTHYROXINE SODIUM 88 MCG TAB PO SCH (12:20)
[2019-07-17] MEDS: PANTOPRAZOLE SOD 40 MG TABEC PO SCH (12:20)
--- NOTE | 2019-07-17 14:23 | Diagnostic Imaging Report ---
EXAM: CT Chest WITHOUT intravenous contrast 07/17/2019 9:01 AM INDICATION: Shortness of breath COMPARISON: Chest radiograph 07/16/2019 TECHNIQUE: Chest was scanned utilizing a multidetector helical scanner from the lung apex through the level of the adrenal glands without administration of IV contrast. Coronal and sagittal reformations were obtained. Routine protocol was performed. IV CONTRAST: None RADIATION DOSE: Total DLP: 478.9 mGy*cm. Dose modulation, iterative reconstruction, and/or weight based adjustment of the mA/kV was utilized to reduce the radiation dose to as low as reasonably achievable. COMPLICATIONS: None FINDINGS: LINES/ TUBES: None. LUNGS AND AIRWAYS: The central airways are patent. Bilateral lower lobe dependent subsegmental atelectasis. There are diffuse geographic groundglass opacities throughout both lungs and prominent fluid along the fissures. Right lower lobe 8 mm pulmonary nodule (series 2 image 84). PLEURA: Small bilateral pleural effusions. No pneumothorax. HEART AND MEDIASTINUM: 9 mm left thyroid lobe hypodense nodule is likely clinically insignificant and does not require further follow-up imaging. No supraclavicular lymphadenopathy. Prominent subcarinal lymph node measures up to 11 mm short axis. Enlarged pretracheal lymph node measures up to 2.5 x 1.6 cm. The heart is mildly enlarged. Atherosclerotic calcifications involve the coronary arteries, aorta, and great vessels. UPPER ABDOMEN: Limited noncontrast images of the upper abdomen demonstrate multiple hypodense lesions in the right and left liver, for example at the right hepatic dome measuring 2.5 cm (series 2 image 85) and in segment 2 measuring 2.7 cm (series 2 image 106). These appear slightly larger compared to the prior chest CT of 11/05/2018. No focal abnormality of the partially visualized spleen, adrenals, or pancreas. The kidneys are not visualized. Diffuse atherosclerotic calcifications of the partially visualized abdominal aorta and mesenteric branches. BONES: No acute osseous injury. Sternotomy wires in place. Degenerative changes of the visualized spine. No suspicious lytic or blastic lesions. SOFT TISSUES: No axillary lymphadenopathy. Densely calcified structure in the left breast, likely related to remote trauma. IMPRESSION: Cardiomegaly and severe pulmonary edema. Bilateral pleural effusions. Bibasilar subsegmental atelectasis. Right lower lobe 8 mm pulmonary nodule. Per Fleischner society guidelines, if the patient is low risk, recommend chest CT at 6-12 months then consider follow-up chest CT at 18-24 months. If the patient is high risk, recommend chest CT at 6-12 months and then at 18-24 months. Multiple hypodense masses in the right and left liver, slightly larger compared to the prior CT of 11/05/2018. These lesions are indeterminate on single phase contrast imaging but concerning for metastatic disease. Recommend contrast-enhanced CT or MRI liver mass protocol. Mediastinal lymphadenopathy as above. Signed by: dOalys Dickerson MD on 07/17/2019 2:20 PM
--- NOTE | 2019-07-17 14:55 | NUR ---
Nutrition Intervention Note RD Recommendation for Physician: - Recommend adding 1800 ADA to diet 2/2 DM2 - Recommend Daniel 1 packet BID to promote wound healing - Renal MVI once daily Plan of Care: RD following, monitoring for tolerance and adequacy Nutrition reason for involvement: Nutrition Risk Trigger Primary Diagnose(s): A-fib with RVR, ESRD PMH: ESRD on HD, DM2, hypothyroidism, CAD, CABG hyperlipidemia, AMS, obesity Ht: 62 in Wt: 185.13 lb BMI: 33.9 kg/m2 IBW: [address] Assessment: (07/17) 74 YOF seen today per MST screen and stage II PU on admit. Pt discussed during am rounds. Unable to obtain hx from pt, out of room at time of initial visit, pt sleeping deeply and unable to wake at second visit. Per RN pt eating well without difficulty and no GI distress. Pt dialyzed overnight. Per prior admit, no wt loss noted. Pt with chronic stage II PU to sacrum which was present at prior admit in Nov, not malodorous per MD notes. Chart reviewed. Will monitor and continue to follow. GI: WDL Skin: sacral stage II PU Labs: 07/17: BUN 30, Cr 7.67 Meds: lasix, carafate, amiodarone, renvela, zofran, protonix Current Diet: Renal Malnutrition Evaluation (07/17/19) The patient does not meet criteria for a specified degree of malnutrition at this time. Will re-evaluate at follow-up as appropriate. Nutrition Prescription (Diet Order): Renal Estimated Nutritional Needs: 9091-7324 calories/day (22-25 kcal/kg IBW) 75-100 g protein/day (1.5-2 g pro/kg IBW) Diet Adequacy: Meeting calorie needs, Meeting protein needs Diet tolerance: tolerating po Diet Education Needs Assessment: Diet education not indicated at this time. Nutrition Care Level: Low Nutrition Diagnosis: increased nutrient needs (protein, MVI/min) in relation to skin integrity as evidenced by chronic stage II PU. Goal: Patient will meet 75-100% of estimated needs by follow up Progress: N/A Interventions: Mineral, CHO modified diet, Commercial beverage, Recommended Modifications, Skill Development, Multivitamin/mineral supplement therapy, Collaboration with other providers Monitoring/Evaluation: Total energy intake, Total protein intake, Modified diet, Liquid supplement Signed: Jessica To RD, LD, CNSC
[2019-07-17] MEDS ORDERED: AMIODARONE HCL 900 MG in DEXTROSE 5% 500ML 500 ML IV SCH (15:45)
[2019-07-17] MEDS ORDERED: AMIODARONE HCL 150 MG/100 ML BAG IV ONE (15:45)
--- NOTE | 2019-07-17 15:58 | History and Physical ---
PRIMARY CARE PHYSICIAN: Dr. Moe Sanford. SHOP HAND: Dr. Miri Baez. CHIEF COMPLAINT: Shortness of breath. HISTORY: The patient is a 74-year-old female with multiple medical problems, came in with increasing shortness of breath and volume overload. The patient also has increasing heart rate, atrial fibrillation with RVR as well. The patient admitted to the ICU on Cardizem drip. The patient did receive dialysis last night due to her significant vascular congestion and volume overload. The patient was otherwise stable at this time. She is very hard of hearing. Chest x-ray that was done showed she had cardiomegaly, pulmonary edema, patchy left basilar airspace opacity could be secondary to pneumonia versus atelectasis. The patient did receive dialysis, however. Her white cell count was 4.6 thousand. The patient is stable at this time. PAST MEDICAL HISTORY: 1. End-stage renal disease, on dialysis. 2. Diabetes type 2, associated with diabetic neuropathy. 3. Hypertension. 4. Atrial fibrillation. 5. Obstructive sleep apnea. 6. Coronary artery disease. 7. Congestive heart failure. 8. History of coronary artery bypass graft surgery. 9. Chronic anemia. PAST SURGICAL HISTORY: 1. Coronary artery bypass graft surgery. 2. Prior craniotomy. 3. Prior breast reduction surgery. 4. Dialysis access. SOCIAL HISTORY: The patient does not smoke or use alcohol. No regular drug. ALLERGIES: LISINOPRIL, SULFA, SULFONAMIDE ANTIBIOTICS. HOME MEDICATIONS: List is reviewed. REVIEW OF SYSTEMS: Chronic lower back pain and shortness of breath. PHYSICAL EXAMINATION: VITAL SIGNS: Temperature is 98, blood pressure 142/80, pulse rate is 108, respirations 20. GENERAL: The patient is not in acute distress, although she is in pain. HEENT: Normocephalic and atraumatic. Pupils reactive. Anicteric. NECK: Supple grossly. PULMONARY: Diminished breath sounds. CARDIOVASCULAR: S1, S2. Atrial fibrillation, rate increased. ABDOMEN: Soft and obese. EXTREMITIES: No cyanosis or edema. NEUROLOGIC: No focal deficit. LABORATORY DATA: Sodium is 144, potassium 3.8, chloride 99, bicarb 28, BUN 30, creatinine 7.6, glucose is 180. WBC is 4.6, hemoglobin 10.2, hematocrit 34, platelets 92. IMPRESSION: 1. Atrial fibrillation with rapid ventricular response. The patient does have atrial fibrillation at baseline. 2. Pulmonary vascular congestion secondary to volume overload from end-stage renal disease, required dialysis. 3. Possible pneumonia at the base. 4. Multiple chronic baseline problems. PLAN: Antibiotics. Dialysis. Consultation with Dr. John Paul Allen for the atrial fibrillation and rapid rate. Echocardiogram. Continue with current management. Home medication resumed. Pain control. MD TIM Lucero/MODMagdy /[id number]
[2019-07-17] MEDS: APIXAB 2.5 MG TABLET PO SCH (16:46)
--- NOTE | 2019-07-17 18:20 | Consultation ---
DATE OF CONSULTATION: Cardiology Consultation CHIEF COMPLAINT: The patient is a 74-year-old with shortness of breath. HISTORY OF PRESENT ILLNESS: The patient is a 74-year-old, who is on dialysis. The patient came to the emergency room for increasing shortness of breath and was found to be in atrial fibrillation with a rapid ventricular response. The patient reported shortness of breath, but no chest pain. PAST MEDICAL HISTORY: Significant for: 1. Intermittent atrial fibrillation. 2. End-stage renal disease, on dialysis. 3. Anemia. 4. Diabetes mellitus. 5. Hypothyroidism. SOCIAL HISTORY: The patient does not drink and does not smoke. FAMILY HISTORY: Significant for hypertension and diabetes. PHYSICAL EXAMINATION: GENERAL: The patient is lethargic. VITAL SIGNS: Include a temperature of 98.8, blood pressure was 120/70, and pulse was 96. HEAD, EARS, EYES, NOSE, AND THROAT: The patient's cranium was normocephalic and atraumatic. Extraocular muscles were intact. Sclerae were anicteric. Pupils were equal, round, and reactive to light. There is no pallor or cyanosis of the oral mucosa. There is no erythema or edema of the throat. NECK: Supple. No jugular venous distention. No carotid bruits. CHEST: Demonstrated rhonchi bilaterally. CARDIAC: Demonstrated an irregularly irregular rhythm with a 2/6 systolic murmur. ABDOMEN: Demonstrated good bowel sounds. No tenderness and no masses. EXTREMITIES: There was no clubbing, no cyanosis, and no edema. DIAGNOSTIC DATA: The patient's EKG demonstrated atrial fibrillation with rapid ventricular response. IMPRESSION: Atrial fibrillation. RECOMMENDATIONS: My recommendations are as follows: 1. The patient will need to be continued on the oral amiodarone that she takes at home. 2. The patient was replaced on IV Cardizem to control the rate of her atrial fibrillation. 3. The patient has been started on Eliquis for anticoagulation. 4. An echocardiogram with Doppler has been ordered. MD FAROOQ Mercer/MICHELINEL /[id number]
[2019-07-17] MEDS: ALBUTEROL/IPRATROPIUM 3 ML NEB NEB SCH ×2 (19:00→23:00)
[2019-07-17] MEDS: ISOSORBIDE MONONITRATE 30 MG TAB CR PO SCH (20:24)
[2019-07-17] MEDS: PRAVASTATIN 20 MG TAB PO SCH (20:24)
[2019-07-17] MEDS: SERTRALINE HCL 100 MG TAB PO SCH (20:25)
[2019-07-17] MEDS ORDERED: ISOSORBIDE MONONITRATE 120 MG PO SCH (21:00)
[2019-07-18] VITALS (25 sets, daily range): BP systolic 102–166; BP diastolic 56–111
[2019-07-18] MEDS: OXYCODONE/ACETAMINOPHEN 5-325 1 EACH TABLET PO PRN ×2 (00:25→09:23)
[2019-07-18] MEDS: METRONIDAZOLE 500MG/NS 100ML 100 ML IV SCH ×3 (02:11→17:19)
[2019-07-18] MEDS: ALBUTEROL/IPRATROPIUM 3 ML NEB NEB SCH ×6 (03:00→23:15)
[2019-07-18] MEDS: LEVOTHYROXINE SODIUM 88 MCG TAB PO SCH (06:15)
[2019-07-18] MEDS: SUCRALFATE 1 GM TAB PO SCH ×2 (06:33→16:21)
[2019-07-18] MEDS: PANTOPRAZOLE SOD 40 MG TABEC PO SCH (08:22)
[2019-07-18] MEDS: SEVELAMER CARBONATE 800 MG TAB PO SCH ×3 (08:22→16:21)
[2019-07-18] MEDS: METOPROLOL TARTRATE 50 MG TAB PO SCH ×2 (08:23→16:21)
[2019-07-18] MEDS: APIXAB 2.5 MG TABLET PO SCH ×2 (08:23→16:21)
[2019-07-18] MEDS: CLONAZEPAM 0.5 MG TAB PO SCH ×3 (08:23→20:19)
[2019-07-18] MEDS: FUROSEMIDE 40 MG TAB PO SCH ×2 (08:23→16:21)
[2019-07-18] MEDS: [UNRECOGNIZED DRUG - MIXTURE] PO SCH (08:23)
[2019-07-18] MEDS: GABAPENTIN 400 MG CAP PO SCH ×3 (08:23→20:19)
[2019-07-18] MEDS: ALLOPURINOL 100 MG TAB PO SCH (08:23)
[2019-07-18 08:39] LABS: BASOPHILS % 0.4 % (0.0-1.0); EOSINOPHILS # (AUTO) 0.1 (0.0-0.4); EOSINOPHILS % 2.4 % (0.0-6.0); HEMATOCRIT 30.6 % (34.2-44.1); HEMOGLOBIN 9.2 g/dL (12.0-16.0); LYMPHOCYTES # (AUTO) 0.6 (1.0-3.2); LYMPHOCYTES % 10.4 % (18.0-39.1); MEAN CORPUSCULAR HEMOGLOBIN 28.7 pg (28-32); MEAN CORPUSCULAR HGB CONC 30.1 g/dL (31-35); MEAN CORPUSCULAR VOLUME 95.3 fL (81-99); MONOCYTES # (AUTO) 0.6 (0.2-0.8); MONOCYTES % 10.2 % (4.4-11.3); NEUTROPHILS # (AUTO) 4.1 (2.1-6.9); PLATELET COUNT 93 x10e3/uL (140-360); RED BLOOD COUNT 3.21 x10e6/uL (3.6-5.1); RED CELL DISTRIBUTION WIDTH 16.5 % (11.7-14.4)
[2019-07-18] MEDS: CEFTRIAXONE SOD 1 GM/NS 50 ML 50 ML IV SCH (08:47)
[2019-07-18 09:04] LABS: ANION GAP 17.3 mmol/L (8-16); CALCIUM 9.7 mg/dL (8.4-10.2); CREATININE, SERUM 6.09 mg/dL (0.57-1.11); POTASSIUM 4.3 mmol/L (3.5-5.1)
[2019-07-18] MEDS: TIOTROPIUM 18 MCG INH POWDER INH SCH (10:00)
[2019-07-18] MEDS ORDERED: SODIUM CHLORIDE 0.9% 1000ML 2,000 ML IV PRN (12:00)
[2019-07-18] MEDS ORDERED: MANNITOL 25% 12.5GM/50 ML VIAL IV PRN (12:00)
[2019-07-18] MEDS ORDERED: SODIUM CHLORIDE 0.9% 250ML 500 ML IV PRN (12:00)
[2019-07-18] MEDS: NYSTATIN 100,000 UNITS/GM CRM 30GM TUBE TOP SCH (16:26)
[2019-07-18] MEDS ORDERED: AMIODARONE 900MG 500 ML IV SCH (16:58)
--- NOTE | 2019-07-18 18:10 | Consultation ---
DATE OF CONSULTATION: Wound Consultation Thank you, Dr. Gallego and Dr. Baez, for asking us to see this patient. HISTORY OF PRESENT ILLNESS: A 74-year-old female patient with history of end-stage renal disease, admitted for AFib with rapid ventricular response. The patient was found to have chronic nonhealing coccyx and sacral ulcers. Wound consult was called. PAST MEDICAL HISTORY: End-stage renal disease, congestive heart failure, hypertension, and atrial fibrillation. SOCIAL HISTORY: No history of smoking or alcohol. PHYSICAL EXAMINATION: VITAL SIGNS: Blood pressure 151/63, pulse 100 and irregularly irregular. HEENT: Normal. NECK: No JVD. LUNGS: Clear. ABDOMEN: Soft. Bowel sounds normal. EXTREMITIES: Lower extremities, no edema. SKIN: Sacral area, the patient has a small coccygeal wound healing and there is an area of candidal intertrigo between the gluteal cleft and skin breakdown, tender to touch. No bacterial infection. ASSESSMENT: Sacral pressure ulcer, chronic, healing and new wound at the gluteal cleft, stage 2 from candidal intertrigo. PLAN: We will apply Lotrimin cream and Mepilex. We will follow up. Thank you for consultation. MD DONALD Trevizo/BAMBI /[id number]
[2019-07-18] MEDS: PRAVASTATIN 20 MG TAB PO SCH (20:19)
[2019-07-18] MEDS: SERTRALINE HCL 100 MG TAB PO SCH (20:19)
[2019-07-18] MEDS: ISOSORBIDE MONONITRATE 30 MG TAB CR PO SCH (20:19)
[2019-07-19] VITALS (21 sets, daily range): BP systolic 101–160; BP diastolic 45–113
[2019-07-19] MEDS: OXYCODONE/ACETAMINOPHEN 5-325 1 EACH TABLET PO PRN ×3 (01:03→20:28)
[2019-07-19] MEDS: METRONIDAZOLE 500MG/NS 100ML 100 ML IV SCH ×4 (02:35→18:28)
[2019-07-19] MEDS: ALBUTEROL/IPRATROPIUM 3 ML NEB NEB SCH ×6 (03:00→23:05)
[2019-07-19] MEDS: LEVOTHYROXINE SODIUM 88 MCG TAB PO SCH (05:47)
[2019-07-19] MEDS: TIOTROPIUM 18 MCG INH POWDER INH SCH (07:18)
[2019-07-19] MEDS: PANTOPRAZOLE SOD 40 MG TABEC PO SCH (08:06)
[2019-07-19] MEDS: SUCRALFATE 1 GM TAB PO SCH ×2 (08:06→16:03)
[2019-07-19] MEDS: SEVELAMER CARBONATE 800 MG TAB PO SCH ×3 (08:07→16:03)
[2019-07-19] MEDS: GABAPENTIN 400 MG CAP PO SCH ×3 (08:07→20:25)
[2019-07-19] MEDS: CLONAZEPAM 0.5 MG TAB PO SCH ×3 (08:07→20:25)
[2019-07-19] MEDS: FUROSEMIDE 40 MG TAB PO SCH ×2 (08:07→16:03)
[2019-07-19] MEDS: ALLOPURINOL 100 MG TAB PO SCH (08:07)
[2019-07-19] MEDS: NYSTATIN 100,000 UNITS/GM CRM 30GM TUBE TOP SCH (08:07)
[2019-07-19] MEDS: METOPROLOL TARTRATE 50 MG TAB PO SCH ×2 (08:07→16:03)
[2019-07-19] MEDS: APIXAB 2.5 MG TABLET PO SCH ×2 (08:07→16:03)
[2019-07-19] MEDS: [UNRECOGNIZED DRUG - MIXTURE] PO SCH (08:11)
--- NOTE | 2019-07-19 08:33 | NUR ---
PT HARD OF HEARING, WAS HAVING DIFFICULTY TO DO THE ASSESSMENT, WILL ATTEMPT TO CANTACT FAMILY
[2019-07-19] MEDS ORDERED: AMIODARONE 900MG 500 ML IV SCH (09:00)
[2019-07-19] MEDS: CEFTRIAXONE SOD 1 GM/NS 50 ML 50 ML IV SCH (09:08)
[2019-07-19] MEDS: AMIODARONE HCL 200 MG TAB PO SCH ×2 (11:29→16:03)
--- NOTE | 2019-07-19 17:40 | NUR ---
PT TO THE FLOOR AT THIS TIME. VITALS WNL. PT DENIES NEEDS AT THIS TIME.
[2019-07-19] MEDS: ISOSORBIDE MONONITRATE 30 MG TAB CR PO SCH (20:25)
[2019-07-19] MEDS: PRAVASTATIN 20 MG TAB PO SCH (20:25)
[2019-07-19] MEDS: SERTRALINE HCL 100 MG TAB PO SCH (20:25)
[2019-07-20] VITALS (8 sets, daily range): BP systolic 118–144; BP diastolic 59–78
[2019-07-20] MEDS: METRONIDAZOLE 500MG/NS 100ML 100 ML IV SCH ×3 (02:30→17:36)
[2019-07-20] MEDS ORDERED: SODIUM CHLORIDE 0.9% 250ML 250 ML ONE (02:33)
[2019-07-20] MEDS: ALBUTEROL/IPRATROPIUM 3 ML NEB NEB SCH ×6 (03:25→23:10)
[2019-07-20] MEDS: LEVOTHYROXINE SODIUM 88 MCG TAB PO SCH (05:39)
--- NOTE | 2019-07-20 07:00 | NUR ---
BEDSIDE SHIFT REPORT FROM NIGHT RN. PT DENIES NEEDS AT THIS TIME.
[2019-07-20] MEDS: TIOTROPIUM 18 MCG INH POWDER INH SCH (07:15)
[2019-07-20] MEDS: CLONAZEPAM 0.5 MG TAB PO SCH ×3 (08:21→21:24)
[2019-07-20] MEDS: PANTOPRAZOLE SOD 40 MG TABEC PO SCH (08:21)
[2019-07-20] MEDS: SUCRALFATE 1 GM TAB PO SCH ×2 (08:21→17:34)
[2019-07-20] MEDS: SEVELAMER CARBONATE 800 MG TAB PO SCH ×3 (08:21→17:34)
[2019-07-20] MEDS: AMIODARONE HCL 200 MG TAB PO SCH ×2 (08:21→17:34)
[2019-07-20] MEDS: APIXAB 2.5 MG TABLET PO SCH ×2 (08:21→17:34)
[2019-07-20] MEDS: [UNRECOGNIZED DRUG - MIXTURE] PO SCH (08:21)
[2019-07-20] MEDS: FUROSEMIDE 40 MG TAB PO SCH ×2 (08:21→17:34)
[2019-07-20] MEDS: GABAPENTIN 400 MG CAP PO SCH ×3 (08:22→21:24)
[2019-07-20] MEDS: NYSTATIN 100,000 UNITS/GM CRM 30GM TUBE TOP SCH (08:22)
[2019-07-20] MEDS: CEFTRIAXONE SOD 1 GM/NS 50 ML 50 ML IV SCH (08:22)
[2019-07-20] MEDS: ALLOPURINOL 100 MG TAB PO SCH (08:22)
[2019-07-20] MEDS: METOPROLOL TARTRATE 50 MG TAB PO SCH ×2 (08:22→17:34)
--- NOTE | 2019-07-20 15:40 | NUR ---
Visit made by the Spiritual Care Department Pastoral Visitor, Antonio Kessler. Pt sleeping soundly and no family present. Pastoral Visitor left a card describing availability of photoengraving printer and instructions on how to contact a photoengraving printer. EDMOND COTO Hourly Manager Spiritual Care Department O: [phone] Pager: [phone] ([phone] number calling from)
[2019-07-20] MEDS: ONDANSETRON HCL 4 MG ORAL DISINTEGRATING TAB PO PRN (17:35)
--- NOTE | 2019-07-20 19:30 | NUR ---
Received bedside report from day nurse. Patient resting in bed with CPAP on, no s/s of distress or c/o pain at this time. All safety measures in place. Will continue to monitor.
[2019-07-20] MEDS: ISOSORBIDE MONONITRATE 30 MG TAB CR PO SCH (21:24)
[2019-07-20] MEDS: SERTRALINE HCL 100 MG TAB PO SCH (21:24)
[2019-07-20] MEDS: PRAVASTATIN 20 MG TAB PO SCH (21:24)
[2019-07-21] VITALS (10 sets, daily range): BP systolic 114–149; BP diastolic 53–78
[2019-07-21] MEDS: METRONIDAZOLE 500MG/NS 100ML 100 ML IV SCH ×2 (01:23→08:58)
[2019-07-21] MEDS: ALBUTEROL/IPRATROPIUM 3 ML NEB NEB SCH ×6 (03:05→23:15)
[2019-07-21] MEDS: LEVOTHYROXINE SODIUM 88 MCG TAB PO SCH (05:34)
--- NOTE | 2019-07-21 05:47 | NUR ---
Patient was transferring from bedside commode to bed. Was in room with patient. Assisted patient to her knees before calling for another nurse to help patient get back into bed. Will notify MD and family.
--- NOTE | 2019-07-21 07:00 | NUR ---
Bedside report given to night nurse. Patient in stable condition, no s/s of distress at this time. All safety measures in place.
[2019-07-21] MEDS: TIOTROPIUM 18 MCG INH POWDER INH SCH (07:05)
[2019-07-21 08:27] LABS: BASOPHILS % 0.3 % (0.0-1.0); EOSINOPHILS # (AUTO) 0.2 (0.0-0.4); EOSINOPHILS % 2.7 % (0.0-6.0); HEMOGLOBIN 8.9 g/dL (12.0-16.0); LYMPHOCYTES # (AUTO) 0.4 (1.0-3.2); LYMPHOCYTES % 5.5 % (18.0-39.1); MEAN CORPUSCULAR HEMOGLOBIN 28.9 pg (28-32); MEAN CORPUSCULAR HGB CONC 30.7 g/dL (31-35); MEAN CORPUSCULAR VOLUME 94.2 fL (81-99); MONOCYTES # (AUTO) 0.7 (0.2-0.8); MONOCYTES % 9.2 % (4.4-11.3); NEUTROPHILS # (AUTO) 5.8 (2.1-6.9); NEUTROPHILS % 81.6 % (38.7-80.0); PLATELET COUNT 77 x10e3/uL (140-360); RED BLOOD COUNT 3.08 x10e6/uL (3.6-5.1); RED CELL DISTRIBUTION WIDTH 16.5 % (11.7-14.4)
[2019-07-21] MEDS: AMIODARONE HCL 200 MG TAB PO SCH ×2 (08:57→17:42)
[2019-07-21] MEDS: FUROSEMIDE 40 MG TAB PO SCH ×2 (08:57→17:42)
[2019-07-21] MEDS: PANTOPRAZOLE SOD 40 MG TABEC PO SCH (08:57)
[2019-07-21] MEDS: SEVELAMER CARBONATE 800 MG TAB PO SCH ×3 (08:57→17:42)
[2019-07-21] MEDS: CLONAZEPAM 0.5 MG TAB PO SCH ×3 (08:57→20:14)
[2019-07-21] MEDS: SUCRALFATE 1 GM TAB PO SCH ×2 (08:57→17:43)
[2019-07-21] MEDS: APIXAB 2.5 MG TABLET PO SCH ×2 (08:57→17:43)
[2019-07-21] MEDS: ALLOPURINOL 100 MG TAB PO SCH (08:58)
[2019-07-21] MEDS: GABAPENTIN 400 MG CAP PO SCH ×3 (08:58→20:38)
[2019-07-21] MEDS: METOPROLOL TARTRATE 50 MG TAB PO SCH ×2 (08:58→17:00)
[2019-07-21 09:00] LABS: ANION GAP 20.4 mmol/L (8-16); CALCIUM 9.9 mg/dL (8.4-10.2); CREATININE, SERUM 7.41 mg/dL (0.57-1.11)
[2019-07-21] MEDS: [UNRECOGNIZED DRUG - MIXTURE] PO SCH (09:00)
[2019-07-21] MEDS: NYSTATIN 100,000 UNITS/GM CRM 30GM TUBE TOP SCH (09:00)
[2019-07-21 09:05] LABS: POTASSIUM 6.4 mmol/L (3.5-5.1)
--- NOTE | 2019-07-21 09:14 | NUR ---
Dr. Baez was notified of potassium level 6.4. New orders received, along with stat dialysis. [facility] was notified that patient needs stat dialysis.
[2019-07-21] MEDS ORDERED: INSULIN REGULAR, HUMAN 100 UNIT/1 ML 3ML VIAL IV ONE (09:15)
[2019-07-21] MEDS ORDERED: DEXTROSE 50% SYRINGE 50 ML IV STA (09:15)
[2019-07-21] MEDS ORDERED: CALCIUM GLUCONATE 10% INJ 4.65 MEQ in SODIUM CHLORIDE 0.9% 50ML 50 ML IV ONE (09:15)
[2019-07-21] MEDS: LEVOFLOXACIN 250 MG TAB PO SCH (11:40)
[2019-07-21] MEDS: ISOSORBIDE MONONITRATE 30 MG TAB CR PO SCH (20:38)
[2019-07-21] MEDS: PRAVASTATIN 20 MG TAB PO SCH (20:38)
[2019-07-21] MEDS: SERTRALINE HCL 100 MG TAB PO SCH (20:38)
[2019-07-22] VITALS (7 sets, daily range): BP systolic 103–148; BP diastolic 51–67
[2019-07-22] MEDS: ALBUTEROL/IPRATROPIUM 3 ML NEB NEB SCH ×6 (03:08→23:30)
[2019-07-22] MEDS: LEVOTHYROXINE SODIUM 88 MCG TAB PO SCH (05:52)
[2019-07-22] MEDS: PANTOPRAZOLE SOD 40 MG TABEC PO SCH (08:21)
[2019-07-22] MEDS: CLONAZEPAM 0.5 MG TAB PO SCH (08:21)
[2019-07-22] MEDS: APIXAB 2.5 MG TABLET PO SCH ×2 (08:21→18:19)
[2019-07-22] MEDS: AMIODARONE HCL 200 MG TAB PO SCH ×2 (08:21→18:19)
[2019-07-22] MEDS: SUCRALFATE 1 GM TAB PO SCH ×2 (08:21→18:19)
[2019-07-22] MEDS: SEVELAMER CARBONATE 800 MG TAB PO SCH ×3 (08:21→18:19)
[2019-07-22] MEDS: FUROSEMIDE 40 MG TAB PO SCH ×2 (08:21→18:19)
[2019-07-22] MEDS: METOPROLOL TARTRATE 50 MG TAB PO SCH ×2 (08:22→18:19)
[2019-07-22] MEDS: GABAPENTIN 400 MG CAP PO SCH (08:22)
[2019-07-22] MEDS: ALLOPURINOL 100 MG TAB PO SCH (08:22)
[2019-07-22] MEDS: [UNRECOGNIZED DRUG - MIXTURE] PO SCH (08:22)
[2019-07-22] MEDS: LEVOFLOXACIN 250 MG TAB PO SCH (08:25)
[2019-07-22] MEDS: TIOTROPIUM 18 MCG INH POWDER INH SCH (10:00)
[2019-07-22 10:03] LABS: BASOPHILS % 0.3 % (0.0-1.0); EOSINOPHILS # (AUTO) 0.2 (0.0-0.4); EOSINOPHILS % 2.4 % (0.0-6.0); HEMATOCRIT 28.6 % (34.2-44.1); HEMOGLOBIN 8.3 g/dL (12.0-16.0); LYMPHOCYTES # (AUTO) 0.4 (1.0-3.2); MEAN CORPUSCULAR HEMOGLOBIN 28.3 pg (28-32); MEAN CORPUSCULAR VOLUME 97.6 fL (81-99); MONOCYTES # (AUTO) 0.8 (0.2-0.8); MONOCYTES % 12.2 % (4.4-11.3); NEUTROPHILS # (AUTO) 5.3 (2.1-6.9); NEUTROPHILS % 78.7 % (38.7-80.0); PLATELET COUNT 77 x10e3/uL (140-360); RED BLOOD COUNT 2.93 x10e6/uL (3.6-5.1); RED CELL DISTRIBUTION WIDTH 16.3 % (11.7-14.4)
[2019-07-22 10:17] LABS: ANION GAP 17.2 mmol/L (8-16); CALCIUM 9.5 mg/dL (8.4-10.2); CREATININE, SERUM 4.71 mg/dL (0.57-1.11); POTASSIUM 5.2 mmol/L (3.5-5.1)
[2019-07-22] MEDS ORDERED: SOD POLYSTYRENE SULFONATE SUSP 15 GM/60 ML BTL PO ONE (13:30)
--- NOTE | 2019-07-22 13:41 | NUR ---
WE HAVE SAME NUMBER IN SYSTEM FOR SON AND DAUGHTER, DAUGHTER INFORMATION IS NUMBER [phone] OR HOME [phone]. CALLED TO TALK ABOUT SNF IN NETWORK, SPOKE WITH SON IN [place] TO GET DAUGHTERS INFORMATION AND ABLE TO GET HIM UPDATE FROM NURSE ON CASE. LEFT MESSAGE FOR PT TO RETURN CALL AVAILABLE IN NETWORK ARE [facility], [facility] AND [facility] [place], ALL IN AREA OF HOME AND DIALYSIS UNIT.
--- NOTE | 2019-07-22 15:31 | NUR ---
SPOKE WITH DAUGHTER NIDIA [phone], LET HER KNOW ALL OPTION IN NETWORK IN HER AREA. SHE CHOSE [facility]. FILED CHOICE IN CHART AND COMPLETED PASRR AND RTF FOR TRANSFER WITH COMPLETE.
[2019-07-22] MEDS: NYSTATIN 100,000 UNITS/GM CRM 30GM TUBE TOP SCH (18:19)
--- NOTE | 2019-07-22 19:00 | NUR ---
Pt visited in room during nursing rounds. Patient sleeping but easily arousable to touch stimuli. V/S stable. LFA AV fistula noted and pt on dialysis MWF. Home CPAP at bedside for prn use. Pt on 2L NC. Bed alarm active. Call roy within reach.
[2019-07-22] MEDS: PRAVASTATIN 20 MG TAB PO SCH (21:00)
[2019-07-22] MEDS: ISOSORBIDE MONONITRATE 30 MG TAB CR PO SCH (21:00)
[2019-07-23] VITALS (8 sets, daily range): BP systolic 107–134; BP diastolic 53–64
--- NOTE | 2019-07-23 00:45 | NUR ---
Patient awake at this time. Pt had a large soft bowel movement. Pt cleaned and Allevyn dressing applied to sacral/buttock (midline) area.
[2019-07-23] MEDS: ALBUTEROL/IPRATROPIUM 3 ML NEB NEB SCH ×6 (03:40→23:30)
[2019-07-23] MEDS: PANTOPRAZOLE SOD 40 MG TABEC PO SCH (06:21)
[2019-07-23] MEDS: LEVOTHYROXINE SODIUM 88 MCG TAB PO SCH (06:21)
[2019-07-23] MEDS: SUCRALFATE 1 GM TAB PO SCH ×2 (06:21→17:43)
[2019-07-23] MEDS: TIOTROPIUM 18 MCG INH POWDER INH SCH (07:10)
[2019-07-23] MEDS: SEVELAMER CARBONATE 800 MG TAB PO SCH ×3 (08:23→17:44)
[2019-07-23] MEDS: [UNRECOGNIZED DRUG - MIXTURE] PO SCH (08:24)
[2019-07-23] MEDS: FUROSEMIDE 40 MG TAB PO SCH ×2 (08:24→17:44)
[2019-07-23] MEDS: AMIODARONE HCL 200 MG TAB PO SCH ×2 (08:24→17:43)
[2019-07-23] MEDS: APIXAB 2.5 MG TABLET PO SCH ×2 (08:24→17:43)
[2019-07-23] MEDS: METOPROLOL TARTRATE 50 MG TAB PO SCH ×2 (08:25→17:44)
[2019-07-23] MEDS: ALLOPURINOL 100 MG TAB PO SCH (08:25)
[2019-07-23] MEDS: LEVOFLOXACIN 250 MG TAB PO SCH (08:26)
--- NOTE | 2019-07-23 08:41 | NUR ---
CALLED AND SPOKE WITH INSURANCE MABEL ELLER SHE GAVE 7 OPTIONS THAT ARE 10 [address] PT HOME DAUGHTER NIDIA CHOSE [facility]
[2019-07-23] MEDS: NYSTATIN 100,000 UNITS/GM CRM 30GM TUBE TOP SCH (09:00)
--- NOTE | 2019-07-23 13:49 | NUR ---
WOUND CARE NURSE INITIAL CONSULTATION. 74 YEAR OLD FEMALE ADMITTED TO [facility] WITH DX ATRIAL FIBRILLATION WITH RVR AND ESRD. HEAD TO TOE SKIN ASSESSMENT PERFORMED TODAY. PT PRESENTS WITH A 2.5X0.2C0.1CM PARTIAL THICKNESS WOUND TO SACRAL CREASE MOST LIKELY RELATED TO MOISTURE. DR. SETH CONSULTED FOR SACRAL WOUND, ORDERS IN CHART FOR LOTRIMIN CREAM AND COVER WITH FOAM DRESSING. RIGHT 1ST AND 2ND TOES PRESENT WITH ECCHYMOSIS, PT STATES SHE HIT THEM WITH SHOWER HEAD. STATES NO PAIN AT THIS TIME. MINIMAL ASSISTANCE IS REQUIRED TO REPOSITION. THERE ARE NO OTHER AREAS OF CONCERN NOTED AT THIS TIME. NO S/S OF INFECTION AREA NOTED. PT EDUCATED ON PLAN OF CARE AND PRESSURE RELIEF. STATES UNDERSTANDING. LABS: WBC: 6.72 ALB: 3.6 SACRAL WOUND CX IS POSITIVE FOR ENTEROCOCCUS FAECALIS. BLOOD CX IS NEGATIVE. RECOMMENDATIONS: ENCOURAGE PT TO REPOSITION EVERY TWO HOURS AND PRN. PROVIDE PT WITH BILATERAL HEEL PROTECTORS AND PILLOW SUSPENSIONS CONTINUE WITH ALTERNATING LOW AIR LOSS MATTRESS CONTINUE WITH DR. SETH'S CURRENT WOUND CARE ORDERS AND RECONSULT WOUND CARE PRN. THANKS FOR THIS CONSULTATION. Addendum: 07/23/19 at 1356 by Roopa Garcia RN Amended: Links added.
[2019-07-23] MEDS: PRAVASTATIN 20 MG TAB PO SCH (21:25)
[2019-07-23] MEDS: ISOSORBIDE MONONITRATE 30 MG TAB CR PO SCH (21:25)
[2019-07-23] MEDS: MELATONIN 5 MG TABLET PO PRN (21:25)
[2019-07-24] VITALS (8 sets, daily range): BP systolic 92–129; BP diastolic 52–62
[2019-07-24] MEDS: ALBUTEROL/IPRATROPIUM 3 ML NEB NEB SCH ×6 (03:10→23:05)
[2019-07-24] MEDS: LEVOTHYROXINE SODIUM 88 MCG TAB PO SCH (06:34)
[2019-07-24] MEDS: FUROSEMIDE 40 MG TAB PO SCH ×2 (08:48→18:28)
[2019-07-24] MEDS: PANTOPRAZOLE SOD 40 MG TABEC PO SCH (08:48)
[2019-07-24] MEDS: NYSTATIN 100,000 UNITS/GM CRM 30GM TUBE TOP SCH (08:48)
[2019-07-24] MEDS: [UNRECOGNIZED DRUG - MIXTURE] PO SCH (08:48)
[2019-07-24] MEDS: METOPROLOL TARTRATE 50 MG TAB PO SCH ×2 (08:48→18:28)
[2019-07-24] MEDS: SEVELAMER CARBONATE 800 MG TAB PO SCH ×3 (08:48→18:28)
[2019-07-24] MEDS: AMIODARONE HCL 200 MG TAB PO SCH ×2 (08:48→18:28)
[2019-07-24] MEDS: APIXAB 2.5 MG TABLET PO SCH (08:48)
[2019-07-24] MEDS: SUCRALFATE 1 GM TAB PO SCH ×2 (08:48→18:28)
[2019-07-24] MEDS: ALLOPURINOL 100 MG TAB PO SCH (08:48)
[2019-07-24] MEDS: LEVOFLOXACIN 250 MG TAB PO SCH (08:49)
[2019-07-24] MEDS: TIOTROPIUM 18 MCG INH POWDER INH SCH (10:00)
--- NOTE | 2019-07-24 14:15 | NUR ---
Nutrition Intervention Note RD Recommendation for Physician: - Recommend adding 1800 ADA to diet 2/2 DM2 - Recommend Daniel 1 packet BID to promote wound healing - Renal MVI once daily - Nepro BID Plan of Care: RD following, monitoring for tolerance and adequacy Nutrition reason for involvement: follow up Primary Diagnose(s): A-fib with RVR, ESRD PMH: ESRD on HD, DM2, hypothyroidism, CAD, CABG hyperlipidemia, AMS, obesity Ht: 62 in Wt: 185.13 lb BMI: 33.9 kg/m2 IBW: [address] Assessment: 07/24: Follow up. Pt discussed during am rounds, pending discharge to SNF chosen by family. Pt with 50-100% po intake, intake has decreased over the past few days. No GI distress reported. Wt change noted as of admit, pt with fluid shifts with HD tx. Supplements recommended. Will monitor and continue to follow. (07/17) 74 YOF seen today per MST screen and stage II PU on admit. Pt discussed during am rounds. Unable to obtain hx from pt, out of room at time of initial visit, pt sleeping deeply and unable to wake at second visit. Per RN pt eating well without difficulty and no GI distress. Pt dialyzed overnight. Per prior admit, no wt loss noted. Pt with chronic stage II PU to sacrum which was present at prior admit in Nov, not malodorous per MD notes. Chart reviewed. Will monitor and continue to follow. GI: LBM 07/23 Skin: sacral stage II PU Labs: 07/24: K 5.2, BUN 26, Cr 4.71 07/17: BUN 30, Cr 7.67 Meds: renvela, carafate, protonix, lasix, synthroid, zofran Current Diet: Renal Malnutrition Evaluation (07/17/19) The patient does not meet criteria for a specified degree of malnutrition at this time. Will re-evaluate at follow-up as appropriate. Nutrition Prescription (Diet Order): Renal Estimated Nutritional Needs: 7826-4936 calories/day (22-25 kcal/kg IBW) 75-100 g protein/day (1.5-2 g pro/kg IBW) Diet Adequacy: Not meeting calorie needs, not meeting protein needs- recent intake fluctuating Diet tolerance: tolerating po Diet Education Needs Assessment: Diet education not indicated at this time. Nutrition Care Level: Low Nutrition Diagnosis: increased nutrient needs (protein, MVI/min) in relation to skin integrity as evidenced by chronic stage II PU. Goal: Patient will meet 75-100% of estimated needs by follow up Progress: progressing Interventions: Mineral, CHO modified diet, Commercial beverage, Recommended Modifications, Skill Development, Multivitamin/mineral supplement therapy, Collaboration with other providers Monitoring/Evaluation: Total energy intake, Total protein intake, Modified diet, Liquid supplement Signed: Jessica To RD, LD, [facility]
[2019-07-24] MEDS ORDERED: OXYCODONE/ACETAMINOPHEN 5-325 1 EACH TABLET PO PRN (15:15)
--- NOTE | 2019-07-24 15:44 | NUR ---
DISCUSSED IN BARRIER ROUNDS WAITING ON AUTH FROM FACILITY
[2019-07-24] MEDS: MELATONIN 5 MG TABLET PO PRN (21:10)
[2019-07-24] MEDS: ISOSORBIDE MONONITRATE 30 MG TAB CR PO SCH (21:10)
[2019-07-24] MEDS: PRAVASTATIN 20 MG TAB PO SCH (21:10)
[2019-07-25] VITALS (8 sets, daily range): BP systolic 112–159; BP diastolic 54–71
[2019-07-25] MEDS: ALBUTEROL/IPRATROPIUM 3 ML NEB NEB SCH ×5 (02:50→23:00)
[2019-07-25] MEDS: LEVOTHYROXINE SODIUM 88 MCG TAB PO SCH (05:32)
--- NOTE | 2019-07-25 07:05 | NUR ---
Report received and the pt. is up in the bathroom. She is pending transfer when bed is available.
[2019-07-25] MEDS: SEVELAMER CARBONATE 800 MG TAB PO SCH ×3 (07:41→17:40)
[2019-07-25] MEDS: PANTOPRAZOLE SOD 40 MG TABEC PO SCH (07:41)
[2019-07-25] MEDS: SUCRALFATE 1 GM TAB PO SCH ×2 (07:41→17:39)
[2019-07-25] MEDS: METOPROLOL TARTRATE 50 MG TAB PO SCH ×2 (09:00→17:40)
[2019-07-25] MEDS: [UNRECOGNIZED DRUG - MIXTURE] PO SCH (09:00)
[2019-07-25] MEDS: ALLOPURINOL 100 MG TAB PO SCH (09:15)
[2019-07-25] MEDS: AMIODARONE HCL 200 MG TAB PO SCH ×2 (09:16→17:39)
[2019-07-25] MEDS: FUROSEMIDE 40 MG TAB PO SCH ×2 (09:16→17:39)
[2019-07-25] MEDS: LEVOFLOXACIN 250 MG TAB PO SCH (09:19)
[2019-07-25] MEDS: NYSTATIN 100,000 UNITS/GM CRM 30GM TUBE TOP SCH (09:23)
[2019-07-25] MEDS: TIOTROPIUM 18 MCG INH POWDER INH SCH (10:00)
[2019-07-25 10:47] LABS: ANION GAP 18.2 mmol/L (8-16); CALCIUM 9.7 mg/dL (8.4-10.2); CREATININE, SERUM 6.5 mg/dL (0.57-1.11); POTASSIUM 4.2 mmol/L (3.5-5.1)
--- NOTE | 2019-07-25 11:05 | NUR ---
IMM GIVEN VIA PHONE TO DAUGHTER COPY LEFT IN ROOM
--- NOTE | 2019-07-25 13:54 | NUR ---
[facility] DISCHARGE INFORMATION PATIENT HAS BEEN ACCEPTED TO: NAME: [facility] ADDRESS: [address] [place] ACCEPTING MD: DR Mara APODACA ROOM: 11 A NURSE CALL REPORT TO: [phone] PT GETTING DIALYSIS HAS TO BE OUT OF THIS BUILDING TO BE IN THAT BUILDING FOR CHECK AND ORDER OF MEDICATION PRIOR TO 9PM. DO NOT SEND AFTER 8PM, HOLD UNTIL MORNING IF UNABLE TO GET OUT ON TIME AND SET UP TRANSPORT FOR 7AM.
--- NOTE | 2019-07-25 15:28 | NUR ---
DISCUSSED IN BARRIER ROUNDS PT GOING TO [facility] WAITING ON DIALYSIS, THIS PT WILL BE LAST TO GET TODAY SO PT WILL NOT BE ABLE TO GO TONIGHT AND HAVE TO GO AT 7AM TOMORROW TO MAKE CERTAIN PT CAN GET HER MEDICATIONS AT FACILITY.
--- NOTE | 2019-07-25 17:48 | NUR ---
The dialysis nurse called in to report that he will be here around 1900 to dialyze the pt.
[2019-07-25] MEDS: ISOSORBIDE MONONITRATE 30 MG TAB CR PO SCH (22:52)
[2019-07-25] MEDS: PRAVASTATIN 20 MG TAB PO SCH (22:52)
[2019-07-25] MEDS: ONDANSETRON HCL 4 MG ORAL DISINTEGRATING TAB PO PRN (23:52)
[2019-07-26 00:21] VITALS: BP 104/55
--- NOTE | 2019-07-26 01:20 | NUR ---
patient had her HD, 2635 ml was pulled out. Vital sign stable at this time
[2019-07-26 04:40] VITALS: BP 138/62
[2019-07-26] MEDS: ALBUTEROL/IPRATROPIUM 3 ML NEB NEB SCH ×2 (06:45→10:30)
--- NOTE | 2019-07-26 07:00 | NUR ---
Bedside rounding completed and the pt. is very sleepy due to the late hour o dialysis completion.Plan for transfer to snf today.
[2019-07-26] MEDS: SUCRALFATE 1 GM TAB PO SCH (07:30)
[2019-07-26] MEDS: PANTOPRAZOLE SOD 40 MG TABEC PO SCH (07:30)
[2019-07-26 07:55] VITALS: BP 121/58
[2019-07-26] MEDS: SEVELAMER CARBONATE 800 MG TAB PO SCH ×2 (08:00→12:01)
[2019-07-26] MEDS: [UNRECOGNIZED DRUG - MIXTURE] PO SCH (09:00)
[2019-07-26] MEDS: AMIODARONE HCL 200 MG TAB PO SCH (09:32)
[2019-07-26] MEDS: FUROSEMIDE 40 MG TAB PO SCH (09:33)
[2019-07-26] MEDS: METOPROLOL TARTRATE 50 MG TAB PO SCH (09:34)
[2019-07-26] MEDS: ALLOPURINOL 100 MG TAB PO SCH (09:34)
[2019-07-26 09:45] VITALS: BP 126/58
[2019-07-26] MEDS: LEVOFLOXACIN 250 MG TAB PO SCH (10:15)
[2019-07-26] MEDS: TIOTROPIUM 18 MCG INH POWDER INH SCH (11:05)
[2019-07-26 11:36] VITALS: BP 106/53
--- NOTE | 2019-07-27 03:37 | Discharge Summary ---
FORM RAISER: 1. Dr. John Paul Allen. 2. Dr. Babin. 3. Dr. Miri Baez. FINAL DIAGNOSES: 1. [id number] systolic dysfunction congestive heart failure associated with fluid overload, respiratory failure, required BiPAP. 2. End-stage renal disease, on dialysis. 3. Baseline atrial fibrillation with rapid ventricular response, medication adjustment. 4. Morbid obesity. 5. Obstructive sleep apnea. 6. Multiple baseline medical problems. SUMMARY: The patient is a 74-year-old female, who presented to the hospital with respiratory failure, required BiPAP treatment. The patient was with fluid overload. She was having near intubation. The patient required aggressive dialysis fluid management. She has also had multiple workup done. She had atrial fibrillation, rate controlled now. Her ejection fraction 35%. The patient does have cardiomyopathy. The patient is doing a little bit better now. She is stable. She is comfortable. She will go to skilled facility due to her medical debility with prolonged hospitalization. The patient will go to for physical therapy and continue with her dialysis. The patient is otherwise stable at this time. She will be transferred today. Transfer MAR has been done. The patient will follow up with her family doctor upon discharge from the skilled facility. Sodium is 134, potassium 4.2, chloride 95, bicarb 25, BUN 39, creatinine 6.5, glucose 140. WBC 6.7, hemoglobin 8.3, hematocrit 28.6, platelets 77. PT is 13.5, PTT 31, INR 0.98. Liver enzymes; AST 22, total bilirubin 0.5, alkaline phosphate 118, and ALT is 16. The patient is stable and discharged today. MD TIM Lucero/MICHELINEL /[id number]
== END 2019-07-26 14:24 | DRG 291 ==
LOC: ER 12:20 → ERHOLD 14:21 → ICU 17:55 → MED/SURG2 07-19 17:38
PROVIDERS: ADMIT Internal Medicine; ATTEND Internal Medicine
DX: I13.2 Hypertensive heart and chronic kidney disease with heart failure and with stage 5 chronic kidney disease, or end stage renal disease (principal); N18.6 End stage renal disease; J18.9 Pneumonia, unspecified organism; I50.23 Acute on chronic systolic (congestive) heart failure; I48.0 Paroxysmal atrial fibrillation; Z79.01 Long term (current) use of anticoagulants; E11.22 Type 2 diabetes mellitus with diabetic chronic kidney disease; Z79.4 Long term (current) use of insulin
CPT/HCPCS: 36415; 71045; 71250; 80048; 80053; 82550; 82553; 82948; 83735; 83880; 84484; 85025; 85610; 85730; 86704; 86705; 86706; 86707; 87040; 87071; 87186; 87205; 87350; 90962; 93005; 93306; 94640; 94664; 94760; 97139; 99284; J0610; J0696; J1817; J2150; J7030; J7050; J7060; J7799; Q0162

== ENCOUNTER 2019-08-13 23:09 | Inpatient (IN) | payer MEDICARE, OTHER ==
[~2019-08-13] VITALS: Ht 157.5 cm; Wt 77.2 kg
[2019-08-13] MEDS ORDERED: ONDANSETRON HCL INJ 2MG/ML 2ML 2 MG/ML VIAL IV STA (23:14)
[2019-08-13 23:53] LABS: BASOPHILS % 0.2 % (0.0-1.0); EOSINOPHILS % 0.1 % (0.0-6.0); HEMATOCRIT 37.4 % (34.2-44.1); HEMOGLOBIN 10.5 g/dL (12.0-16.0); LYMPHOCYTES # (AUTO) 0.8 (1.0-3.2); LYMPHOCYTES % 6.4 % (18.0-39.1); MEAN CORPUSCULAR HEMOGLOBIN 28.5 pg (28-32); MEAN CORPUSCULAR HGB CONC 28.1 g/dL (31-35); MEAN CORPUSCULAR VOLUME 101.4 fL (81-99); MONOCYTES # (AUTO) 1.1 (0.2-0.8); MONOCYTES % 8.6 % (4.4-11.3); NEUTROPHILS # (AUTO) 10.8 (2.1-6.9); NEUTROPHILS % 83.8 % (38.7-80.0); PLATELET COUNT 133 x10e3/uL (140-360); RED BLOOD COUNT 3.69 x10e6/uL (3.6-5.1)
[2019-08-13 23:57] LABS: INR 1.21; PROTHROMBIN TIME 15.9 seconds (11.9-14.5)
[2019-08-14] VITALS (20 sets, daily range): BP systolic 12–111; BP diastolic 51–73
[2019-08-14 00:07] LABS: ALBUMIN 3.7 g/dL (3.5-5.0); ALBUMIN/GLOBULIN RATIO 0.9 (0.8-2.0); ANION GAP 34.9 mmol/L (8-16); CALCIUM 9.1 mg/dL (8.4-10.2); CREATININE, SERUM 7.33 mg/dL (0.57-1.11); POTASSIUM 4.9 mmol/L (3.5-5.1)
[2019-08-14 00:11] LABS: ABG PH 7.12 (7.31-7.41)
[2019-08-14 00:12] LABS: ABG HCO3 21 mmol/L (23-28); ABG PCO2 65 mmHg (41-51); ABG PO2 78 mmHg (80-105)
[2019-08-14 00:14] LABS: CREATINE KINASE MB 14.6 ng/mL (0-5.0)
--- NOTE | 2019-08-14 00:25 | NUR ---
PT UNABLE TO MAINTAIN O2 SATS ON NASAL CANNULA / NONREBREATHER PT IS ONLY BREATHING SHALLOW; PT PLACED ON BIPAP - PT STATES "I DONT LIKE THIS" AND WAS HOLDING BREATH, REFUSING TO BREATHE; PT INSTRUCTED TO BREATHE WITH MACHINE
[2019-08-14] MEDS ORDERED: ASPIRIN 81 MG CHEW TAB PO ONE ×2 (00:30→02:45)
--- NOTE | 2019-08-14 01:23 | Diagnostic Imaging Report ---
EXAMINATION: CHEST SINGLE (PORTABLE) COMPARISON: CT chest 07/17/2019, chest x-ray 07/16/2019 INDICATION: ^AMS, BACK PAIN ^Y DISCUSSION: Frontal view of the chest obtained at 0049 hours. HEART AND MEDIASTINUM: Stable cardiomegaly and cardiac bypass changes. LINES: None. LUNGS: Central pulmonary vascular prominence is stable. No interstitial edema or groundglass attenuation. No infiltrates PLEURA: No large effusions or pneumothorax. BONES AND SOFT TISSUES: Median sternotomy wires are intact. The soft tissues are normal. IMPRESSION: Cardiomegaly and central vascular prominence, likely chronic. No acute pulmonary process. Signed by: Dr. Wolfgang Hudson MD on 08/14/2019 1:20 AM
--- NOTE | 2019-08-14 01:36 | Diagnostic Imaging Report ---
EXAMINATION: Head CT without contrast. HISTORY:Altered mental status, fall. COMPARISON:CT brain from 11/13/2018. TECHNIQUE: Multidetector axial images were obtained from the foramen magnum to the vertex without contrast. The images were reconstructed using brain and bone algorithms. Thin section brain images were reformatted into coronal and sagittal planes. Dose modulation, iterative reconstruction, and/or weight based adjustment of the mA/kV was utilized to reduce the radiation dose to as low as reasonably achievable. Intravenous contrast: None IMAGE QUALITY: Acceptable. FINDINGS: Skull/scalp: No lytic or blastic. lesions. No surgical changes. Parenchyma: Nonspecific supratentorial white matter patchy hypodensity are likely related to small vessel ischemic changes. No acute hemorrhage, mass or acute major vascular territorial infarct. Arteries: No density suggestive of thrombosis. Atherosclerotic calcification in bilateral carotid siphon and V4 segment of the vertebral arteries. Dural sinuses: No abnormal density suggestive of thrombosis. Ventricles: No hydrocephalus or displacement. Extra-axial spaces: No abnormal density. Brain volume: Mild generalized cerebral volume loss. Craniocervical junction: No mass, Chiari malformation, or basilar invagination. Sella: No mass. Paranasal/mastoid sinuses: Postoperative changes remains unchanged from prior right mastoidectomy. IMPRESSION: No acute intracranial abnormality. No significant change since CT brain from 11/13/2018. Chronic findings: 1. Mild supratentorial white matter microvascular ischemic changes. 2. Mild generalized cerebral volume loss. Signed by: Dr. Chiquita Woods M.D. on 08/14/2019 1:33 AM
--- NOTE | 2019-08-14 01:39 | NUR ---
PT HAD ORDERS FOR 324 ASA CHEWABLE; UNKNOWN WHETHER PT WILL BE ABLE TO CHEW AND SWALLOW PILLS PT IS CONFUSED AND DOES NOT FOLLOW COMMANDS; ER MD NOTIFIED AND AWARE
[2019-08-14 01:47] LABS: ABG HCO3 22 mmol/L (23-28); ABG PCO2 50 mmHg (41-51); ABG PH 7.25 (7.31-7.41); ABG PO2 202 mmHg (80-105)
--- NOTE | 2019-08-14 01:57 | Diagnostic Imaging Report ---
History: Back pain, status post fall 2 days ago. Comparison studies: Report of MRI lumbar spine from 09/30/2015, CT abdomen from 12/25/2015. Technique: Axial images were obtained through the lumbar spine from T 11 to S1. Coronal and sagittal images reconstructed from the axial data. Dose modulation, iterative reconstruction, and/or weight based adjustment of the mA/kV was utilized to reduce the radiation dose to as low as reasonably achievable. Intravenous contrast: None Findings: The usual 5 non-rib bearing lumbar vertebral bodies are present. Alignment: Exaggeration of normal lumbar lordosis. Mild levocurvature of lower lumbar spine. Soft tissues: Atherosclerotic calcification in the abdominal aorta and its branches. Paraspinal muscles: Fatty atrophy of posterior paraspinal muscles at level L5 and S1. Sacroiliac joints: Mild bilateral degenerative changes. Vertebrae: Diffuse osseous demineralization. Age indeterminate superior endplate compression deformity of T12 with associated 20% loss of vertebral body height. No retropulsion into spinal canal. Age indeterminate superior endplate compression and anterior wedge-shaped deformity results in approximately 50% loss of vertebral body height without significant retropulsion into spinal canal. Degenerative changes: L1-L2: Moderate degenerative disc disease with decreased intervertebral disc space, endplate sclerosis and vacuum phenomena. No canal or foraminal stenosis. L2-L3: Mild degenerative disc disease. Disc bulge with bilateral facet arthrosis and thickened ligamentum flavum results in mild canal stenosis. Mild bilateral foraminal stenosis. L3-L4: Mild degenerative disc disease. Disc bulge in combination with facet arthrosis and thickened ligamentum flavum results in severe canal stenosis; severe right and moderate left foraminal stenosis. L4-L5: Moderate degenerative disc disease with decreased intervertebral disc space, endplate sclerosis and vacuum phenomenon. Disc bulge in combination with thickened ligamentum flavum and facet arthrosis results in moderate to severe canal stenosis. Severe bilateral foraminal stenosis. L5-S1: Mild degenerative disc disease. Disc bulge without significant canal stenosis. Severe bilateral facet arthrosis. Moderate right and mild left foraminal stenosis. IMPRESSION: 1. Age indeterminate superior endplate compression and anterior wedging deformity of T12 and L1 resulting in approximately 20% and 50% height loss respectively. These findings are new in comparison to CT abdomen from 12/25/2015. 2. Multilevel lumbar spondylosis, particularly results in severe canal stenosis at L3-L4, moderate to severe at L4-L5 and mild canal stenosis at L2-L3. 3. Multilevel foraminal stenosis, particularly mild bilateral at L2-L3, severe right and moderate left at L3-L4, severe bilateral at L4-L5, moderate right and mild left at L5-S1. 4. Ligament, spinal cord and or vascular abnormalities cannot be excluded on the basis of this examination. Signed by: Dr. Chiquita Woods M.D. on 08/14/2019 1:54 AM
--- NOTE | 2019-08-14 02:11 | Diagnostic Imaging Report ---
CT Abdomen and Pelvis without contrast INDICATION: Fall, end-stage renal disease ^VOMITING, AMS ^[id number] ^0110 ^Y TECHNIQUE: Thin collimation axial images obtained from the diaphragm to the level of the pubic symphysis without nonionic intravenous contrast. Dose reduction techniques used: Automated exposure control, adjustment of the mAs and/or kVp according to patient size, standardized low-dose protocol, and/or iterative reconstruction technique. RADIATION DOSE: Total DLP: 1312 mGy*cm Estimated effective dose: (DLP x 0.015 x size factor) mSv CTDIvol has been reviewed. It is below the limits set by the Radiation Protocol Committee (RPC). COMPARISON: CT chest 07/17/2019. CT abdomen/pelvis 12/25/2015 ABDOMEN FINDINGS: Lung Bases: Bibasilar atelectasis and mosaic appearance of the lung parenchyma suggestive of small airways disease. The heart is enlarged with diffuse coronary artery and aortic and mitral valve calcifications. No pericardial effusion. Liver: Normal in attenuation. Multiple solid and low attenuating masses throughout the parenchyma on previous CT are similar. The largest mass is in the liver dome and measures 2.5 cm and is stable. Gallbladder: Present and appears normal. No ductal dilatation. Pancreas: Diffuse fatty atrophy. No mass or ductal dilatation. Spleen: Measures 16 cm in length, stable. No mass. Adrenal Glands: No evidence for mass. Kidneys: Right: Atrophic with calcifications of the renal vasculature. No cortical mass or hydronephrosis Left: Atrophic with calcifications of the renal vasculature. No cortical mass or hydronephrosis. Lymph Nodes: Large soft tissue mass in the right upper quadrant inferior to the gastric antrum measures 3.8 x 3.8 cm and is stable. There is a second, smaller similar-appearing mass measuring 1.5 cm. This is new. Aorta: Normal in diameter with heavy calcifications throughout the aorta and its tributaries. PELVIS FINDINGS: Bowel: Stomach: Distended with fluid. The pylorus is prominent Small Bowel: No distended small bowel loops. No evidence of fluid. Large Bowel: Moderate burden of inspissated stool. No focal mural thickening or pericolonic inflammation. Appendix: Not visualized and may be absent or collapsed. Bladder: Under distended. Ureters: No ureteral dilatation or calculus. The uterus is present and is atrophic. Peritoneum/retroperitoneum: No free fluid, fluid collection, or free air. Bones: The bones are diffusely demineralized. Visualized median sternotomy wires are intact. Healing fractures of the right eighth and ninth ribs. No acute rib fractures. Diffuse degenerative changes of the spine with vacuum disc phenomenon at L1-2 and L4-5. There is a compression fracture of L1 of 40-50 % with posterior cortical bowing into the spinal canal. Mild height loss of the T12 vertebral body No surrounding soft tissue inflammation. Flowing anterior osteophytes throughout the thoracic spine. There is a nondisplaced fracture of the left sacral a left. There is a fracture of S2 at the anterior aspect. No diastases of the symphysis pubis or sacroiliac joints. The hips are intact and normal in morphology. IMPRESSION: 1. Fluid dilated stomach with prominence of the pylorus or mass in the gastric antrum resulting in outlet obstruction. Recommend tube decompression and reevaluation with contrast-enhanced CT or endoscopy to exclude underlying mass. There are 2 soft tissue masses inferior to the gastric antrum. The larger mass has been present since 2016 and is grossly stable. A smaller adjacent mass is new. Both are concerning for lymphadenopathy. 2. Multiple intrahepatic masses are similar and remain concerning for metastasis. 3. Stable splenomegaly. 4. Healing right rib fractures. Acute fractures of the sacrum. Compression fractures of T12 and L1 as described above. Signed by: Dr. Wolfgang Hudson MD on 08/14/2019 2:07 AM
[2019-08-14] MEDS ORDERED: ASPIRIN 300 MG SUPP PR STA (02:31)
[2019-08-14] MEDS ORDERED: ONDANSETRON HCL INJ 2MG/ML 2ML 2 MG/ML VIAL IV PRN (02:45)
[2019-08-14] MEDS ORDERED: DEXTROSE 5%/0.45% SOD CHL 1,000 ML IV ONE (02:45)
[2019-08-14] MEDS ORDERED: DEXTROSE 50% SYRINGE 50 ML IV PRN (02:45)
[2019-08-14] MEDS ORDERED: SODIUM CHLORIDE FLUSH 10 ML SYR INJ PRN (02:45)
--- NOTE | 2019-08-14 03:06 | NUR ---
PT REFUSED ASPRIN SUPPOSITORY; PT COMBATIVE AND STATES SHE DOES NOT WANT SUPPOSITORY
[2019-08-14] MEDS: FAMOTIDINE 20 MG/2 ML VIAL IV SCH ×2 (03:10→09:00)
[2019-08-14] MEDS: ALBUTEROL/IPRATROPIUM 3 ML NEB NEB SCH ×6 (03:21→23:00)
--- NOTE | 2019-08-14 03:30 | NUR ---
RECEIVED FROM ER TO ROOM 192. ASLEEP, OPENS EYES TO SPEECH OR TOUCH. BI-PAP IN USE. IV TO RIGHT AC AT 75 CC/HR VIA PUMP
--- NOTE | 2019-08-14 03:58 | NUR ---
PATIENT PRESENTS WITH STAGE II TO BUTTOCKS AND EXCORIATION/REDNESS TO GROIN AREA
--- NOTE | 2019-08-14 05:14 | NUR ---
PATIENT REFUSES REPOSITIONING, BECOMES AGITATED AND COMBATIVE
[2019-08-14 05:50] LABS: CREATINE KINASE MB 28.8 ng/mL (0-5.0)
--- NOTE | 2019-08-14 06:18 | NUR ---
CALL PLACED FOR DR Mara WANG REGARDING ELEVATED TROPONIN LEVEL, SPOKE WITH LEXA AT ANSWERING SERVICE, AWAITING RETURN CALL
[2019-08-14] MEDS ORDERED: ONDANSETRON HCL 4 MG ORAL DISINTEGRATING TAB PO PRN (07:30)
[2019-08-14] MEDS: INSULIN REGULAR, HUMAN 100 UNIT/1 ML 3ML VIAL SQ SCH ×4 (07:30→21:00)
[2019-08-14] MEDS ORDERED: ALBUTEROL SULF 0.083% NEB SOLN 3 ML NEB NEB PRN (07:30)
[2019-08-14 07:32] LABS: BASOPHILS % 0.1 % (0.0-1.0); EOSINOPHILS # (AUTO) 0.1 (0.0-0.4); EOSINOPHILS % 1.6 % (0.0-6.0); HEMATOCRIT 33.1 % (34.2-44.1); HEMOGLOBIN 9.7 g/dL (12.0-16.0); LYMPHOCYTES # (AUTO) 0.5 (1.0-3.2); MEAN CORPUSCULAR HEMOGLOBIN 28.8 pg (28-32); MEAN CORPUSCULAR HGB CONC 29.3 g/dL (31-35); MEAN CORPUSCULAR VOLUME 98.2 fL (81-99); NEUTROPHILS % 80.8 % (38.7-80.0); PLATELET COUNT 78 x10e3/uL (140-360); RED BLOOD COUNT 3.37 x10e6/uL (3.6-5.1); RED CELL DISTRIBUTION WIDTH 18.3 % (11.7-14.4)
[2019-08-14 07:42] LABS: ALBUMIN 3.5 g/dL (3.5-5.0); ANION GAP 27.6 mmol/L (8-16); CALCIUM 8.4 mg/dL (8.4-10.2); CREATININE, SERUM 7.53 mg/dL (0.57-1.11); POTASSIUM 5.6 mmol/L (3.5-5.1)
[2019-08-14] MEDS: LEVOTHYROXINE SODIUM 88 MCG TAB PO SCH (08:00)
[2019-08-14] MEDS: SEVELAMER CARBONATE 800 MG TAB PO SCH ×3 (08:00→16:47)
[2019-08-14] MEDS: SUCRALFATE 1 GM TAB PO SCH ×2 (08:00→14:45)
--- NOTE | 2019-08-14 08:14 | NUR ---
Paged Dr. Baez about morning labs
[2019-08-14] MEDS: [UNRECOGNIZED DRUG - OTHER] PO SCH (08:23)
[2019-08-14] MEDS: METOPROLOL TARTRATE 50 MG TAB PO SCH ×2 (08:23→16:47)
[2019-08-14] MEDS: ZN OX PO SCH (08:23)
[2019-08-14] MEDS: PANTOPRAZOLE SOD 40 MG TABEC PO SCH (08:23)
[2019-08-14] MEDS: AMIODARONE HCL 200 MG TAB PO SCH ×3 (08:23→21:33)
[2019-08-14] MEDS: BIOT PO SCH (08:23)
[2019-08-14] MEDS: VIT B CPLX PO SCH (08:23)
[2019-08-14] MEDS: ZINC PO SCH (08:23)
[2019-08-14] MEDS: ALLOPURINOL 100 MG TAB PO SCH (08:24)
[2019-08-14] MEDS ORDERED: GABAPENTIN 100 MG CAP PO SCH (09:00)
[2019-08-14] MEDS ORDERED: NON-FORMULARY MEDICATION (Pravastatin Sodium 10 MG) PO SCH (09:00)
[2019-08-14] MEDS ORDERED: FUROSEMIDE 40 MG TAB PO SCH (09:00)
[2019-08-14] MEDS ORDERED: GABAPENTIN 400 MG CAP PO SCH ×2 (09:00)
[2019-08-14 09:40] LABS: ABG HCO3 33 mmol/L (23-28); ABG PCO2 65 mmHg (41-51); ABG PH 7.31 (7.31-7.41); ABG PO2 150 mmHg (80-105)
[2019-08-14 10:14] LABS: FREE THYROXINE INDEX 1.4451 (1.4-3.8); THYROID STIMULATING HORMONE 5.986 uIU/mL (0.350-4.940)
[2019-08-14] MEDS: AMPICILLIN SOD/SULBACTAM 1.5GM 50 ML IV SCH (11:00)
--- NOTE | 2019-08-14 11:20 | Consultation ---
DATE OF CONSULTATION: 08/14/2019 Cardiology Consultation CHIEF COMPLAINT: The patient is a 74-year-old with shortness of breath. HISTORY OF PRESENT ILLNESS: The patient is a 74-year-old with end-stage renal disease, who came to the emergency room with increasing shortness of breath and was noted to be in atrial fibrillation with a rapid ventricular response. The patient was placed on BiPAP and subsequently admitted to the ICU. PAST MEDICAL HISTORY: Significant for: 1. Chronic atrial fibrillation. 2. End-stage renal disease, on dialysis. 3. Chronic anemia. 4. Diabetes mellitus. 5. Hypothyroidism. 6. Chronic obstructive pulmonary disease. CURRENT MEDICATIONS: The patient's current medications at home include amiodarone, metoprolol, allopurinol, albuterol, furosemide, gabapentin, and Synthroid. SOCIAL HISTORY: The patient does not drink and does not smoke. FAMILY HISTORY: There is a known family history of coronary artery disease. PHYSICAL EXAMINATION: GENERAL: The patient is currently resting comfortably on BiPAP. VITAL SIGNS: The temperature was 97.2, blood pressure 102/57, and pulse was 106. HEAD, EARS, EYES, NOSE, AND THROAT: The patient's cranium was normocephalic and atraumatic. Extraocular muscles were intact. Sclerae were anicteric. Pupils were equal, round, and reactive to light. There is no pallor or cyanosis of the oral mucosa. NECK: Supple. No jugular venous distention. CHEST: Demonstrated rhonchi bilaterally. CARDIAC: Demonstrated an irregularly irregular rhythm with a 2/6 systolic murmur. ABDOMEN: Demonstrated good bowel sounds. No tenderness and no masses. EXTREMITIES: No clubbing, no cyanosis, and no edema. NEUROLOGICAL: The patient was disoriented, but was moving all of her limbs. DIAGNOSTIC DATA: EKG demonstrated atrial fibrillation. IMPRESSION: The patient is a 74-year-old admitted with recurrent respiratory difficulty, dyspnea, fluid overload, and atrial fibrillation. RECOMMENDATIONS: My recommendations are as follows: 1. The patient will be placed on Lovenox for anticoagulation for now. 2. The patient's amiodarone and metoprolol will be continued. 3. A repeat echocardiogram has been ordered. 4. The patient will require dialysis as per Nephrology. 5. The patient's increased troponin level is most likely due to demand ischemia and end-stage renal disease. I would favor holding off on cardiac cath at this time. MD FAROOQ Mercer/BAMBI /[id number]
[2019-08-14 11:36] LABS: % IRON SATURATION 31 % (15-50); IRON 80 ug/dL (50-170); TOTAL IRON BINDING CAPACITY 256 ug/dL (261-478); TRANSFERRIN 183 mg/dL (180-382)
[2019-08-14 12:20] LABS: PLATELET ESTIMATE MODERATELY DECREASED; PLATELET MORPHOLOGY COMMENT NORMAL; POIKILOCYTOSIS MODERATE; POLYCHROMASIA FEW; RBC MORPHOLOGY COMMENT ABNORMAL
[2019-08-14 12:21] LABS: ANISOCYTOSIS SLIGHT; OVALOCYTES FEW; TEAR DROP CELLS FEW
[2019-08-14 14:15] LABS: CREATINE KINASE MB 23.2 ng/mL (0-5.0)
--- NOTE | 2019-08-14 14:58 | NUR ---
WOUND CARE CONSULT FOR 74 YO FEMALE HX OD COMPRESSION FRACTURE JAVI 15 ON MODERATE PUP ON ALTERNATING PRESSURE MATTRESS LABS: WBC- 8.63,HGB- 9.7, GLUCOSE - 142 SKIN ASSESSMENT COMPLETE PATIENT PRESENT WITH STAGE 1 PRESSURE AREA TO SACRAL AREA [id number] NONBLANCHABLE WITH MOISTURE NOTED TO CREASED AREA RECOMMENDATIONS: NURSING TO CONTINUE TO MAINTAIN MODERATE PUP INTERVENTIONS NURSING TO CONTINUE TO ASSIST PATIENT TO SIT FOR MEALS AND MUCH TOLERATED NURSING TO APPLY DAILY VENELEX OINTMENT TO SACRAL AREA COVER WITH ALLEVYN FOAM Addendum: 08/14/19 at 1507 by Javier Villagran RN Amended: Links added.
--- NOTE | 2019-08-14 15:02 | Consultation ---
DATE OF CONSULTATION: 08/14/2019 Pulmonary Consultation Patient of Dr. Gallego, Dr. Moe Sanford, Dr. Allen, and Dr. Baez. HISTORY OF PRESENT ILLNESS: Unfortunate 74-year-old woman with a history of end-stage renal disease, admitted with confusion over 2 days, had refused to go to the emergency room until she was essentially unresponsive. She has a history of end-stage renal disease on chronic hemodialysis, history of chronic atrial fibrillation, congestive heart failure, COPD, gastroesophageal reflux, diabetes, and hypothyroidism. She has had cranial surgery in the past, reason unclear. She is on BiPAP, unable to relate her history, but does seem to nod and seems to awaken. She has a history of stomach masses previously noted. In addition to a craniotomy, she has had breast reduction surgery and AV fistula in the left arm. According to record, she had a dialysis catheter in the past, which was complicated by sepsis. ALLERGIES: INCLUDE SULFA AND LISINOPRIL. MEDICATIONS: Include albuterol, allopurinol, amiodarone, Lasix, Neurontin, Ismo, Levoxyl, metoprolol, Prilosec, Pravachol, sertraline, Carafate, and Spiriva. PHYSICAL EXAMINATION: VITAL SIGNS: Temperature 98, pulse 113, irregular, blood pressure 96/54. She is on BiPAP. There is some facial swelling. LUNGS: Bilateral rales. HEART: Regular rhythm. ABDOMEN: Distended. EXTREMITIES: Nonedematous. AV fistula, left arm. EF at 30% estimated. ASSESSMENT: End-stage renal disease, congestive heart failure, altered mental status may be in part related to her Neurontin. We will taper this dose, attempt to avoid withdrawal seizures. Decrease Zoloft as well. Check ammonia level. Check adequacy of thyroid replacement for decisions regarding dialysis to Dr. Baez. There was evidence of early pulmonary edema on CT of the abdomen. Wean from BiPAP after the patient is more stable. Consideration of gastric or liver biopsy will defer to attending. Evidence of degenerative joint disease and old rib fractures, presumably related to falls. Thank you for this kind referral. MD CAIN Kiplatrick/MODL /[id number]
[2019-08-14] MEDS ORDERED: ALBUMIN 25% 12.5GM 50ML 150 ML IV ONE (15:05)
[2019-08-14] MEDS ORDERED: DIATRIZOATE MEGL/DIATRIZOA SOD 30 ML BTL PO ONE (15:24)
--- NOTE | 2019-08-14 16:09 | NUR ---
Nutrition Screen Note RD Recommendation for Physician: -Advance to renal/diabetic diet when medically appropriate Plan of Care: RD following, monitoring for tolerance and adequacy Nutrition reason for involvement: MST Primary Diagnose(s): confusion, elevated troponin, ESRD, hypoxia, respiratory failure with hypercapnia, sacral closed fracture, and T12 compression fracture PMH: chronic afib, ESRD on dialysis, chronic anemia, diabetes, hypothyroid, COPD Ht: 62 in Wt:185 lb BMI: 33.8 kg/m2 IBW:[address] Assessment: (08/14/19) Chart reviewed. Labs and meds reviewed. Pt is a 74 year old female admitted with confusion, elevated troponin, ESRD, hypoxia, respiratory failure with hypercapnia, sacral closed fracture, and T12 compression fracture. Pt is NPO due to decreased alertness. Pt was on BiPAP at time of visit; therefore, spoke to family member at bedside. Family member stated pts intake varies and usually eats small portions. Family member is unsure of pts usual wt. Pt had vomiting last night per family member. No chewing/swallowing issues prior to admission. It is also noted that pt has a stage 2 pressure ulcer to sacrum. Wound care consult is pending. Will continue to monitor. Current Diet: NPO Malnutrition Evaluation (08/14/19) The patient does not meet criteria for a specified degree of malnutrition at this time. Will re-evaluate at follow-up as appropriate. Diet Education Needs Assessment: Diet education not indicated. Nutrition Care Level: Low Signed: Mariah Mendenhall, RD, LD
--- NOTE | 2019-08-14 16:28 | History and Physical ---
CHIEF COMPLAINT: Respiratory failure, on BiPAP. Status post fall at dialysis. Fluid overload, altered mental status. HISTORY OF PRESENT ILLNESS: The patient is a 74-year-old female with previous discharge on July 27, 2019. The patient discharged to a skilled facility care. The patient with multiple extensive chronic medical problems including coronary artery disease with previous bypass graft surgery. She also has end-stage renal disease required dialysis and congestive heart failure with ejection fraction of 35%. More importantly, she does have COPD and obstructive sleep apnea along with that. She also has dialysis. She is chronically anemic and weak, and required care. The patient was sent to skilled care and then subsequently went home. Apparently, she fell at dialysis center. She was subsequently went home and she was struggling with breathing at home. EMS was notified by her daughter and the patient was telling them that she would not want to go to hospital and then subsequently she got worse. Therefore, subsequently EMS presented again and basically, the patient came to the hospital for evaluation. Here in the emergency room, the patient had multiple workup done. A chest x-ray in the emergency room shown that she has cardiomegaly and vascular congestion. Because of her fall, a lumbar CT scan was done. She has compression age determinate fractures of T12-L1 and multiple lumbar spondylosis area from L3-L4, L4-L5 along the L5-S1 area. Also, incidental finding of multiple liver lesion that is already known from previous. She has also had gastric lesion that was already known previously along with her new finding on the CT scan of abdomen and pelvis. The patient has a finding of dilated stomach, prominent in the pyloric. There is a mass in the gastric antrum as well. There is a larger mass been noticed in 2016, which is grossly stable and then there is a small adjacent mass that is new. The patient also had multiple intrahepatic lesion. The patient is otherwise stable, now on BiPAP. She is very weak. Baseline, the patient is very hard of hearing as well. She is chronically anemic and chronically ill. PAST MEDICAL HISTORY: End-stage renal disease, on dialysis, congestive heart failure, cardiomyopathy with ejection fraction of 35%, coronary artery disease with previous coronary artery bypass graft surgery, diabetes type 2, obstructive sleep apnea, hypertension, dyslipidemia, chronic anemia, and chronic medical debility. SOCIAL HISTORY: The patient does not smoke or use alcohol. No regular drugs. ALLERGIES: SULFA, SULFONAMIDE ANTIBIOTIC, AND LISINOPRIL. HOME MEDICATIONS: List is reviewed. REVIEW OF SYSTEMS: The patient is arousable from sleep. She is on BiPAP now. PHYSICAL EXAMINATION: VITAL SIGNS: Her vital signs are stable. Temperature is 97, blood pressure 111/64 to 96/54, pulse rate is atrial fibrillation, 99 to 113. HEENT: Normocephalic and atraumatic. Anicteric. NECK: Supple grossly. PULMONARY: Diminished breath sounds at bases with some coarses. CARDIOVASCULAR: Tachycardia with atrial fibrillation. ABDOMEN: Soft, non-distention. EXTREMITIES: No cyanosis. There is 1+ edema. SKIN: Multiple bruises. NEUROLOGIC: Arousable from sleep. The patient is very hard of hearing again. LABORATORY DATA: Sodium is 137, potassium 4.9, chloride is 89, bicarb 13, BUN is 41, creatinine 7.3, and glucose is 102. CK 297. Troponin is 2.576. WBC is 12.8, hemoglobin 10.5, hematocrit is 37.4, and platelet is 133. IMPRESSION: 1. Respiratory failure secondary to [id number] systolic dysfunction, congestive heart failure. 2. End-stage renal disease, on dialysis with fluid overload. 3. Baseline chronic multiple medical problems including coronary artery disease with previous coronary artery bypass graft surgery, congestive heart failure, diabetes type 2, chronic anemia, anticoagulant therapy with atrial fibrillation. PLAN: Continue to support the patient. We will treat the immediate problem with dialysis for volume overload. We will continue with antibiotics for possible aspiration pneumonia. The patient if any, will need endoscopy for the finding of the gastric lesions. With respect to the hepatic lesion, may or may not address on the tissue to acute medical illnesses and exacerbation of her congestive heart failure control. The patient is very high risk for any procedures at this time. MD TIM Lucero/MICHELINEL /[id number]
[2019-08-14] MEDS: ENOXAPARIN SOD INJ 60 MG/0.6 ML SYR SC SCH (18:40)
--- NOTE | 2019-08-14 19:23 | Consultation ---
DATE OF CONSULTATION: 08/14/2019 HISTORY OF PRESENT ILLNESS: Ms. Luz Garcia is well known to me, 74-year-old female with underlying history of end-stage renal disease, underlying COPD, prior tobacco addiction, who was admitted with altered mental status, missed a dialysis, currently on BiPAP, very lethargic, barely arousable. PHYSICAL EXAMINATION: VITAL SIGNS: Blood pressure 91/55, pulse rate 115, oxygen saturation 98%. HEAD AND NECK: Questionable icterus. Oral mucosa dry. Oxygen saturation 100% at the moment. Respiratory rate 14. She is currently on BiPAP. LABORATORY DATA: Labs show white count 8.6, hemoglobin 9.7. Labs from today shows potassium 5.6 with a bicarb 24, creatinine 7.5, calcium 8.4, albumin 3.5. She had an abdominal CT pelvis, chest x-ray and brain CT done, please see official reports. Brain CT shows mild supratentorial white matter changes. Mild generalized cerebral volume loss. Abdominal CT is remarkable for fluid dilated stomach with prominence of the pylorus or mass in the gastric antrum resulting in outlet obstruction. There are two soft tissue masses inferior to the gastric antrum and that mass has been present since 2016. Multiple intrahepatic masses similar remain concerning for metastases with evidence of splenomegaly. Healing right rib fractures. ALLERGIES: SULFA AND LISINOPRIL. CURRENT MEDICATIONS: The patient was on: 1. Regular insulin. 2. Sertraline. 3. Zoloft 100 mg at bedtime, which I am going to hold because of her current mental status. 4. Pantoprazole. 5. Ondansetron p.r.n. 6. Metoprolol 50 mg p.o. b.i.d. 7. Levothyroxine 88 mcg daily. 8. Gabapentin 400 mg p.o. t.i.d., which has been appropriately stopped. It has been changed to 200 mg p.o. t.i.d., which I am going to stop as well. 9. Famotidine 20 mg IV q.12. 10. Lasix 40 mg p.o. b.i.d., which I am going to stop. 11. Aspirin 81 mg daily. 12. IV fluid D5 half NS at 75 mL an hour, which I am going to stop. 13. Ampicillin sulbactam 1.5 g IV q.24. IMPRESSION: 1. Altered mental status. 2. Respiratory failure. 3. Gastric mass, rule out malignancy. 4. Liver metastases. 5. Hyperkalemia. 6. End-stage renal disease. 7. Fluid overload with respiratory failure. PLAN: Urgent hemodialysis. Please see orders above. Consider GI consultation. She will probably need endoscopy and biopsies. Overall prognosis poor. Has multiple comorbidities including COPD, obstructive sleep apnea, atrial fibrillation, coronary artery disease, prior bypass surgery, end-stage renal disease, peripheral neuropathy. Please see orders. MD MARY Leonard/MODL /[id number]
[2019-08-14] MEDS ORDERED: SERTRALINE HCL 100 MG TAB PO SCH ×2 (21:00)
[2019-08-14] MEDS: PRAVASTATIN 20 MG TAB PO SCH (21:31)
--- NOTE | 2019-08-14 21:52 | Diagnostic Imaging Report ---
CT Abdomen And Pelvis with Intravenous Contrast INDICATION: ^r/o gastric mass and liver mets ^Y TECHNIQUE: Thin collimation axial images obtained from the diaphragm to the level of the pubic symphysis following the uneventful administration of 100 cc of low osmolar, nonionic intravenous contrast. Enteric contrast was also administered. Dose reduction techniques used: Automated exposure control, adjustment of the mAs and/or kVp according to patient size, standardized low-dose protocol, and/or iterative reconstruction technique. RADIATION DOSE: Total DLP: 693.2 mGy*cm Estimated effective dose: (DLP x 0.015 x size factor) mSv CTDIvol has been reviewed. It is below the limits set by the Radiation Protocol Committee (RPC). COMPARISON: CT abdomen/pelvis 08/14/2019, CT chest 07/17/2018, CT abdomen/pelvis 12/25/2015. ABDOMEN FINDINGS: Lung Bases: Bibasilar atelectasis and diffuse air trapping consistent with small airways disease. There is a tiny right pleural effusion. The heart is enlarged with cardiac bypass changes. No pericardial effusion. Enteric tube extends into the stomach. Liver: The liver is decreased in attenuation suggestive of steatosis. Numerous low attenuating and peripherally enhancing masses throughout the parenchyma have developed since CT of the chest obtained 07/17/2019. A mass in the liver dome measures 2.2 x 2.2 cm and is stable. Subcapsular mass in the left lobe measures 1.7 cm and is new. A 2.7 cm mass in the left lobe on the most recent previous exam is poorly visualized, possibly due to adjacent hepatic masses resulting in volume averaging. Portal vein: Patent and normal in morphology. Hepatic veins: Patent and normal in morphology. Gallbladder: Present and appears normal. No biliary ductal dilatation. Pancreas: Diffuse fatty atrophy without mass or ductal dilatation. Spleen: Measures 18 cm in length (in 2016, 17 cm). There are numerous low attenuating solid masses throughout the parenchyma not present on previous exams Adrenal Glands: No evidence for mass. Kidneys: Right: Diminutive. A cyst in the upper pole measures 8 mm. No hydronephrosis. Left: Diminutive. No soft tissue mass. No hydronephrosis. Lymph Nodes: 2 masses inferior to the gastric antrum redemonstrated. The larger mass measures 3.6 x 3.5 cm. This was present in 2016 and is grossly stable. The smaller mass measures 1.3 cm and was not present in 2016. Aorta: Heavily calcified but normal in diameter. PELVIS FINDINGS: Bowel: Stomach: Contains enteric contrast. The pylorus is open but appears thickened, measuring approximately 15 mm. Small Bowel: Contains enteric contrast. No mural thickening or dilatation. Large Bowel: Contains a moderate burden of stool mixed with enteric contrast. No mural thickening or associated inflammation.. Appendix: Not visualized. Bladder: Under distended. The uterus is present and is atrophic. No adnexal mass. Lymph nodes: No enlarged mesenteric, pelvic, or lymph nodes Peritoneum/retroperitoneum: Small amount of pelvic ascites. No loculated fluid collection. Bones: Stable compression deformities of T12 and L1. Stable S1 fracture. Visualized median sternotomy is well-healed. Soft tissues: Unremarkable.. IMPRESSION: 1. Multiple masses in the liver and spleen consistent with metastasis. Thickening of the pylorus remains concerning for underlying neoplasm given the presence of the solid masses adjacent to the gastric antrum. Recommend percutaneous biopsy of one of the hepatic masses. No evidence of primary malignancy in the pelvis. 2. Chronic splenomegaly. 3. Small airways disease. Cardiomegaly. 4. Multiple osseous fractures as described above are stable. Signed by: Dr. Wolfgang Hudson MD on 08/14/2019 9:48 PM
--- NOTE | 2019-08-14 22:22 | Consultation ---
DATE OF CONSULTATION: 08/14/2019 HISTORY OF PRESENT ILLNESS: A 74-year-old lady with history of end-stage renal disease, on hemodialysis, congestive heart failure with ejection fraction of 35%, sleep apnea, diabetes, chronic anemia, hypothyroidism, chronic obstructive pulmonary airway disease, and obesity, who came with altered mental status. Etiology unclear. According to the family, each time this occur and was found to be sepsis mainly urinary tract. GI asked to see her because as part of evaluation of her altered mental status, CT scan of the abdomen without contrast was done, suggestive of gastric mass and was asked for evaluation. No history can be obtained for the patient, but since admission, no nausea or vomiting. No signs of abdominal discomfort. No signs of GI bleed. Also the CT scan show possible liver metastasis. SOCIAL HISTORY: She does not smoke or drink. FAMILY HISTORY: Coronary artery disease. ALLERGIES: TO SULFA AND LISINOPRIL. CURRENT MEDICATIONS: 1. DuoNeb. 2. Pepcid. 3. Ampicillin. 4. Renvela. 5. Carafate. 6. Protonix. 7. Synthroid. 8. Allopurinol. 9. Insulin. 10. Lovenox. 11. Proventil. 12. Zofran. PHYSICAL EXAMINATION: GENERAL: Not awake nor alert. She does respond to commands. NECK: Supple. LUNGS: Clear. HEART: Regularly irregular, occasional irregular beat. ABDOMEN: Obese, soft. No signs of acute abdomen. Bowel sounds very quiet. LABORATORY DATA: White cell count 8.6, hemoglobin 9.7, platelet 78, and hematocrit 33. Her PT is 15.9, PTT is 39. Her sodium is 138, potassium 4.6, BUN 46, creatinine 7, total protein 7, albumin 3.5. TSH normal. AST elevated at 96, ALT normal. Alkaline phosphatase normal. Total bilirubin normal. CT show fluid-dilated stomach, possible pyloric area mass and intrahepatic masses suggestive of metastasis and splenomegaly known from previous x-rays. PLAN: Place an NG tube to suction material from the stomach. Repeat the CT scan with contrast. The patient on hemodialysis, but regardless we will get approval from [facility]al Service. Check her alpha-fetoprotein as far as the low platelet and the abnormal liver enzymes, no known history of cirrhosis. However, if this continue to be persisted, we will do a liver workup. She has had hepatitis screen in the recent past in 2017, that was normal and also she had another hepatitis check in 2019, was also normal. She has had upper endoscopy in the past [address] Rojas, which did not show any gastric mass. In 2016, she had also a colonoscopy by Dr. William Vargas, which show poor prep of the right colon, some colon polyps snared and mild left-sided colitis and diverticulosis. We will follow with you. Tabatha Mcginnis MD RD/MODL /[id number]
[2019-08-14] MEDS ORDERED: SODIUM CHLORIDE 0.9% 50ML 50 ML ONE (22:56)
[2019-08-14] MEDS ORDERED: IOPAMIDOL 370 MG/ML 200 ML INFUS..BTL INJ ONE (22:56)
[2019-08-15] VITALS (25 sets, daily range): BP systolic 91–140; BP diastolic 23–70
[2019-08-15] MEDS: ALBUTEROL/IPRATROPIUM 3 ML NEB NEB SCH ×6 (03:00→23:00)
[2019-08-15 04:59] LABS: BASOPHILS % 0.2 % (0.0-1.0); EOSINOPHILS % 0.4 % (0.0-6.0); HEMATOCRIT 27.5 % (34.2-44.1); HEMOGLOBIN 7.8 g/dL (12.0-16.0); LYMPHOCYTES # (AUTO) 0.4 (1.0-3.2); LYMPHOCYTES % 6.8 % (18.0-39.1); MEAN CORPUSCULAR HEMOGLOBIN 28.5 pg (28-32); MEAN CORPUSCULAR HGB CONC 28.4 g/dL (31-35); MEAN CORPUSCULAR VOLUME 100.4 fL (81-99); MONOCYTES # (AUTO) 0.9 (0.2-0.8); MONOCYTES % 17.3 % (4.4-11.3); NEUTROPHILS % 74.6 % (38.7-80.0); PLATELET COUNT 75 x10e3/uL (140-360); RED BLOOD COUNT 2.74 x10e6/uL (3.6-5.1); RED CELL DISTRIBUTION WIDTH 18.3 % (11.7-14.4)
[2019-08-15 05:18] LABS: ALBUMIN 3.3 g/dL (3.5-5.0); ALBUMIN/GLOBULIN RATIO 1.2 (0.8-2.0); ANION GAP 17.3 mmol/L (8-16); CREATININE, SERUM 4.2 mg/dL (0.57-1.11); POTASSIUM 4.3 mmol/L (3.5-5.1)
[2019-08-15] MEDS: LEVOTHYROXINE SODIUM 88 MCG TAB PO SCH (05:24)
[2019-08-15 05:52] LABS: CHOL/HDL RATIO 11.8 (3.0-3.6)
--- NOTE | 2019-08-15 05:53 | Diagnostic Imaging Report ---
EXAMINATION: CHEST SINGLE (PORTABLE) COMPARISON: Chest x-ray 08/14/2019 INDICATION: Unresponsive ^sob ^[id number] ^0520 DISCUSSION: Frontal view of the chest obtained at 0532 hours. HEART AND MEDIASTINUM: Stable cardiomegaly. Progressing vascular congestion. LINES: Enteric tube extends past the diaphragm. LUNGS: Stable lung volumes. No consolidation PLEURA: No pleural effusion or pneumothorax. BONES AND SOFT TISSUES: Median sternotomy wires are intact.. The soft tissues are normal. IMPRESSION: Increasing pulmonary vascular congestion. Stable cardiomegaly. Enteric tube as described above. Signed by: Dr. Wolfgang Hudson MD on 08/15/2019 5:50 AM
[2019-08-15 06:08] LABS: CREATINE KINASE MB 11.5 ng/mL (0-4.3)
[2019-08-15 06:33] LABS: ALBUMIN 3.4 g/dL (3.5-5.0); BILIRUBIN,DIRECT 0.2 mg/dL (0.0-0.5)
[2019-08-15] MEDS: INSULIN REGULAR, HUMAN 100 UNIT/1 ML 3ML VIAL SQ SCH ×4 (07:30→21:00)
[2019-08-15] MEDS: PANTOPRAZOLE SOD 40 MG TABEC PO SCH (07:30)
[2019-08-15] MEDS: SEVELAMER CARBONATE 800 MG TAB PO SCH ×3 (08:00→16:38)
[2019-08-15] MEDS ORDERED: SODIUM CHLORIDE 0.9% 1000ML 1,000 ML ONE (08:04)
[2019-08-15] MEDS ORDERED: MANNITOL 25% 12.5GM/50 ML VIAL IV PRN (08:30)
[2019-08-15] MEDS ORDERED: ALBUMIN 25% 12.5GM 0.25 GM/ML BTL IV PRN (08:30)
[2019-08-15] MEDS ORDERED: SODIUM CHLORIDE 0.9% 250ML 500 ML IV PRN (08:30)
[2019-08-15] MEDS ORDERED: SODIUM CHLORIDE 0.9% 1000ML 2,000 ML IV PRN (08:30)
[2019-08-15] MEDS: METOPROLOL TARTRATE 50 MG TAB PO SCH ×2 (08:57→16:37)
[2019-08-15] MEDS: BIOT PO SCH (09:00)
[2019-08-15] MEDS: VIT B CPLX PO SCH (09:00)
[2019-08-15] MEDS: ZINC PO SCH (09:00)
[2019-08-15] MEDS: [UNRECOGNIZED DRUG - OTHER] PO SCH (09:00)
[2019-08-15] MEDS: ZN OX PO SCH (09:00)
--- NOTE | 2019-08-15 12:40 | NUR ---
Visit made by the Spiritual Care Department Pastoral Visitor, Vilma Helton. PV provided pastoral presence, prayer, hospitality, communion, and supportive listening. Pastoral Visitor informed pt/family of the scope of [employer] and availability. EDMOND COTO House Worker General Spiritual Care Department O: [phone] Pager: [phone] ([phone] number calling from)
[2019-08-15] MEDS ORDERED: AMIODARONE HCL 150 MG/100 ML BAG IV ONE (13:45)
[2019-08-15] MEDS ORDERED: AMIODARONE HCL 900 MG in DEXTROSE 5% 500ML 500 ML IV SCH (13:45)
[2019-08-15] MEDS: ALLOPURINOL 100 MG TAB PO SCH (14:00)
[2019-08-15] MEDS ORDERED: AMIODARONE HCL 150 MG in DEXTROSE 5% 100ML 100 ML IV SCH (14:00)
[2019-08-15] MEDS: BALSAM PERU/CASTOR OIL 60 GM OINT...G. TP SCH (15:05)
[2019-08-15] MEDS: AMPICILLIN SOD/SULBACTAM 1.5GM 50 ML IV SCH (15:06)
[2019-08-15] MEDS: AMIODARONE HCL 900 MG in DEXTROSE 5 % 500ML BOTTLE 500 ML IV SCH (15:07)
[2019-08-15 15:46] LABS: ABG PH 7.29 (7.31-7.41)
[2019-08-15 15:47] LABS: ABG HCO3 28 mmol/L (23-28); ABG PCO2 59 mmHg (41-51); ABG PO2 149 mmHg (80-105)
[2019-08-15] MEDS: ENOXAPARIN SOD INJ 60 MG/0.6 ML SYR SC SCH (16:51)
--- NOTE | 2019-08-15 20:40 | NUR ---
Dr. Hafsa moreno. states to check with Dr. Baez/renal team in AM regarding peripheral TPN initiation. Will pass on to AM shift.
--- NOTE | 2019-08-15 22:25 | Diagnostic Imaging Report ---
Abdomen/KUB INDICATION: NGT placement COMPARISON: CT abdomen/pelvis 08/14/2019. FINDINGS: Portable, supine image obtained at 2210 hours. Medical Devices: Nasogastric tube terminates in the distal stomach. Median sternotomy wires and cardiac bypass clips are stable. Bowel: There is enteric contrast throughout the large bowel. No dilated small bowel loops. The stomach is collapsed. Free air: None Abdominal calcifications: None Organomegaly: None Lung bases: Bibasilar atelectasis. Bones: Diffuse degenerative changes. Compression fractures of T12 and L1 identified on CT are poorly visualized by x-ray. IMPRESSION: Enteric tube terminates in the distal stomach. Unremarkable bowel gas pattern. Signed by: Dr. Wolfgang Hudson MD on 08/15/2019 10:22 PM
[2019-08-15] MEDS: PRAVASTATIN 20 MG TAB PO SCH (23:15)
--- NOTE | 2019-08-15 23:55 | Progress Note ---
DATE: 08/15/2019 SUBJECTIVE: Ms. Garcia came with altered mental status. I was asked to see her when CT scan of the abdomen without contrast show possible mass in the stomach. Today, 24 hours later, she is still in the same mental status. No clear etiology of the cause of her altered mental status. From GI standpoint, no any GI complaints such as nausea, vomiting, abdominal discomfort, diarrhea, or bleed. I repeated her CT of the abdomen with contrast, which show metastases in the liver, metastases in the spleen, and solid large mass adjacent to the antrum. The patient had upper endoscopy in 2016, which was unremarkable. I am not sure of the origin of her malignancy, possibly that the alter mental status is also from metastases to her brain. She had CT of the head, but was done without contrast. From GI standpoint, I have put an order with the nurse to start her on peripheral TPN and we will continue same care. Her alpha-fetoprotein is still pending. She had hepatitis profile in 2019, unremarkable. LABORATORY DATA: BUN and creatinine are 23 and 4, sodium 137, potassium is 4. AST is elevated at 88. Hemoglobin 7.8, hematocrit 27, platelets 75. ASSESSMENT AND PLAN: Her lab findings indicate that some degree of cirrhosis and also of unclear cause. In light of the CT scan finding, I will discuss the case with the primary care tomorrow to decide on her management. Tabatha Mcginnis MD RD/BAMBI /[id number]
[2019-08-16] VITALS (25 sets, daily range): BP systolic 94–140; BP diastolic 44–82
[2019-08-16] MEDS: ALBUTEROL/IPRATROPIUM 3 ML NEB NEB SCH ×2 (02:14→07:20)
[2019-08-16] MEDS: LEVOTHYROXINE SODIUM 88 MCG TAB PO SCH (05:11)
[2019-08-16 05:27] LABS: BASOPHILS % 0.2 % (0.0-1.0); EOSINOPHILS % 0.3 % (0.0-6.0); HEMATOCRIT 29.8 % (34.2-44.1); HEMOGLOBIN 8.4 g/dL (12.0-16.0); LYMPHOCYTES # (AUTO) 0.3 (1.0-3.2); LYMPHOCYTES % 5.1 % (18.0-39.1); MEAN CORPUSCULAR HEMOGLOBIN 28.2 pg (28-32); MEAN CORPUSCULAR HGB CONC 28.2 g/dL (31-35); MONOCYTES # (AUTO) 0.9 (0.2-0.8); MONOCYTES % 14.3 % (4.4-11.3); NEUTROPHILS % 79.5 % (38.7-80.0); PLATELET COUNT 90 x10e3/uL (140-360); RED BLOOD COUNT 2.98 x10e6/uL (3.6-5.1); RED CELL DISTRIBUTION WIDTH 18.2 % (11.7-14.4)
[2019-08-16] MEDS: AMIODARONE HCL 900 MG in DEXTROSE 5 % 500ML BOTTLE 500 ML IV SCH ×2 (05:42→18:56)
[2019-08-16 05:53] LABS: CREATININE, SERUM 3.59 mg/dL (0.57-1.11)
--- NOTE | 2019-08-16 06:08 | Diagnostic Imaging Report ---
EXAMINATION: CHEST SINGLE (PORTABLE) COMPARISON: 08/15/2019 INDICATION: Shortness of breath ^SOB ^[id number] ^0555 DISCUSSION: Frontal view of the chest obtained at 0555 hours. HEART AND MEDIASTINUM: Stable cardiomegaly. Pulmonary arteries are prominent and indistinct. LINES: Enteric tube extends past the diaphragm. LUNGS: Low lung volumes. No confluent infiltrates. No change compared to previous exam PLEURA: No large effusions. No pneumothorax. BONES AND SOFT TISSUES: Osseous structures are stable. The soft tissues are normal. IMPRESSION: Stable cardiomegaly and pulmonary vascular congestion. Enteric tube extends past the diaphragm. Signed by: Dr. Wolfgang Hudson MD on 08/16/2019 6:04 AM
[2019-08-16] MEDS: METOPROLOL TARTRATE 50 MG TAB PO SCH ×2 (06:12→17:25)
[2019-08-16] MEDS: INSULIN REGULAR, HUMAN 100 UNIT/1 ML 3ML VIAL SQ SCH (07:08)
[2019-08-16 08:49] LABS: LYMPHOCYTES % (MANUAL) 8 % (19-48); MONOCYTES % (MANUAL) 8 % (3.4-9.0); NEUTROPHILS % (MANUAL) 84 % (40-74); NUCLEATED RED BLOOD CELLS 1
[2019-08-16 08:50] LABS: HYPOCHROMASIA SLIGHT; PLATELET ESTIMATE SLIGHTLY DECREASED; PLATELET MORPHOLOGY COMMENT NORMAL
[2019-08-16 08:51] LABS: OVALOCYTES FEW; POIKILOCYTOSIS SLIGHT
[2019-08-16 08:53] LABS: POLYCHROMASIA FEW; RBC MORPHOLOGY COMMENT ABNORMAL; TEAR DROP CELLS FEW
[2019-08-16] MEDS: BIOT PO SCH (08:54)
[2019-08-16] MEDS: ZINC PO SCH (08:54)
[2019-08-16] MEDS: ZN OX PO SCH (08:54)
[2019-08-16] MEDS: [UNRECOGNIZED DRUG - OTHER] PO SCH (08:54)
[2019-08-16] MEDS: VIT B CPLX PO SCH (08:54)
[2019-08-16] MEDS: BALSAM PERU/CASTOR OIL 60 GM OINT...G. TP SCH (08:55)
[2019-08-16] MEDS: PANTOPRAZOLE SOD 40 MG TABEC PO SCH (08:57)
[2019-08-16] MEDS: SEVELAMER CARBONATE 800 MG TAB PO SCH (08:57)
[2019-08-16] MEDS: ALLOPURINOL 100 MG TAB PO SCH (08:57)
[2019-08-16] MEDS: AMIODARONE HCL 200 MG TAB PO SCH (08:57)
[2019-08-16] MEDS ORDERED: EPOETIN ALFA 10000 UNIT/ML VIAL SC SCH (09:15)
[2019-08-16] MEDS ORDERED: DEXTROSE 50% SYRINGE 50 ML IV PRN (09:30)
[2019-08-16] MEDS: PANTOPRAZOLE 40 MG 10ML VIAL IV SCH (09:45)
[2019-08-16] MEDS: AMPICILLIN SOD/SULBACTAM 1.5GM 50 ML IV SCH (10:13)
[2019-08-16] MEDS: LEVALBUTEROL HCL SOLN NEBU 1.25 MG/3 ML NEB INH SCH ×4 (11:00→23:30)
[2019-08-16] MEDS: INSULIN LISPRO 100 UNIT/1 ML 3ML VIAL SQ SCH ×2 (12:00→17:07)
--- NOTE | 2019-08-16 14:43 | Progress Note ---
DATE: 08/16/2019 SUBJECTIVE: No change overall except that she is more awake today, but not alert. This is a lady, who came with altered mental status. CT scan show a mass in her antrum and metastasis in the liver and spleen. She is still n.p.o., has not started on TPN yet. OBJECTIVE: VITAL SIGNS: Afebrile, hemodynamically stable. ABDOMEN: Soft, nontender. Bowel sounds present. LABORATORY DATA: BUN, creatinine 22 and 3.59, sodium 140, potassium is 4. White cell count 6, hemoglobin is 8 and hematocrit 29. My plan for her is to try to do the feeding through the NG tube and other than that, no GI change in plan today. Still no clear etiology of the primary, for malignancy suggests Oncology consult. Tabatha Mcginnis MD RD/MODL /[id number]
[2019-08-16] MEDS: ENOXAPARIN SOD INJ 60 MG/0.6 ML SYR SC SCH (17:25)
[2019-08-17] VITALS (25 sets, daily range): BP systolic 100–136; BP diastolic 48–85
[2019-08-17] MEDS: LEVALBUTEROL HCL SOLN NEBU 1.25 MG/3 ML NEB INH SCH ×6 (03:30→23:10)
[2019-08-17] MEDS: LEVOTHYROXINE SODIUM 88 MCG TAB PO SCH (06:00)
[2019-08-17] MEDS: INSULIN LISPRO 100 UNIT/1 ML 3ML VIAL SQ SCH ×5 (06:00→23:52)
[2019-08-17] MEDS: METOPROLOL TARTRATE 50 MG TAB PO SCH ×2 (09:00→17:22)
[2019-08-17] MEDS: AMIODARONE HCL 200 MG TAB PO SCH (09:10)
[2019-08-17] MEDS: PANTOPRAZOLE 40 MG 10ML VIAL IV SCH (09:10)
[2019-08-17] MEDS: BALSAM PERU/CASTOR OIL 60 GM OINT...G. TP SCH (09:11)
[2019-08-17] MEDS: AMPICILLIN SOD/SULBACTAM 1.5GM 50 ML IV SCH (10:44)
[2019-08-17] MEDS: CYANOCOBALAMIN 1,000 MCG TAB PO SCH (10:52)
--- NOTE | 2019-08-17 12:12 | Progress Note ---
DATE: 08/17/2019 No change overall except she is more awake and more alert, but not follow command. From GI standpoint, she started getting fed. She did have a bowel movement yesterday. She is maintained on Protonix. No signs of any GI complaint. On exam, abdomen is soft, nontender. Nothing to add from GI standpoint today. We will continue to maintain current care. Tabatha Mcginnis MD RD/BAMBI /[id number]
--- NOTE | 2019-08-17 14:10 | NUR ---
Visit made by the Spiritual Care Department Pastoral Visitor, Antonio Kessler. Pt sleeping soundly and no family present. Pastoral Visitor left a card describing availability of piano maker and instructions on how to contact a piano maker. EDMOND COTO Flooring Installer Spiritual Care Department O: [phone] Pager: [phone] ([phone] number calling from)
[2019-08-17] MEDS: ENOXAPARIN SOD INJ 60 MG/0.6 ML SYR SC SCH (17:22)
[2019-08-17] MEDS: AMIODARONE HCL 900 MG in DEXTROSE 5 % 500ML BOTTLE 500 ML IV SCH (20:13)
[2019-08-18] VITALS (24 sets, daily range): BP systolic 106–142; BP diastolic 53–99
[2019-08-18] MEDS: LEVALBUTEROL HCL SOLN NEBU 1.25 MG/3 ML NEB INH SCH ×6 (02:30→23:05)
[2019-08-18] MEDS: AMIODARONE HCL 900 MG in DEXTROSE 5 % 500ML BOTTLE 500 ML IV SCH (04:48)
[2019-08-18] MEDS: LEVOTHYROXINE SODIUM 88 MCG TAB PO SCH (05:08)
[2019-08-18] MEDS: INSULIN LISPRO 100 UNIT/1 ML 3ML VIAL SQ SCH ×4 (05:51→23:45)
[2019-08-18] MEDS: PANTOPRAZOLE 40 MG 10ML VIAL IV SCH (08:06)
[2019-08-18] MEDS: AMIODARONE HCL 200 MG TAB PO SCH (08:09)
[2019-08-18] MEDS: BALSAM PERU/CASTOR OIL 60 GM OINT...G. TP SCH (08:10)
[2019-08-18] MEDS: METOPROLOL TARTRATE 50 MG TAB PO SCH ×4 (08:10→23:26)
[2019-08-18] MEDS: CYANOCOBALAMIN 1,000 MCG TAB PO SCH (08:10)
[2019-08-18 08:35] LABS: BASOPHILS % 0.4 % (0.0-1.0); EOSINOPHILS # (AUTO) 0.1 (0.0-0.4); EOSINOPHILS % 1.7 % (0.0-6.0); HEMOGLOBIN 9.1 g/dL (12.0-16.0); LYMPHOCYTES # (AUTO) 0.4 (1.0-3.2); LYMPHOCYTES % 4.8 % (18.0-39.1); MEAN CORPUSCULAR HEMOGLOBIN 28.4 pg (28-32); MEAN CORPUSCULAR HGB CONC 29.4 g/dL (31-35); MEAN CORPUSCULAR VOLUME 96.9 fL (81-99); MONOCYTES # (AUTO) 0.9 (0.2-0.8); MONOCYTES % 10.5 % (4.4-11.3); NEUTROPHILS # (AUTO) 6.7 (2.1-6.9); NEUTROPHILS % 81.6 % (38.7-80.0); PLATELET COUNT 114 x10e3/uL (140-360); RED CELL DISTRIBUTION WIDTH 17.7 % (11.7-14.4)
[2019-08-18 08:47] LABS: ANION GAP 19.5 mmol/L (8-16); CALCIUM 9.3 mg/dL (8.4-10.2); CREATININE, SERUM 6.34 mg/dL (0.57-1.11); POTASSIUM 4.5 mmol/L (3.5-5.1)
[2019-08-18 09:04] LABS: MAGNESIUM 2.9 MG/DL (1.3-2.1); PHOSPHORUS 2.4 MG/DL (2.3-4.7)
[2019-08-18 10:20] LABS: EOSINOPHILS % (MANUAL) 2 % (0-7); LYMPHOCYTES % (MANUAL) 5 % (19-48); MONOCYTES % (MANUAL) 7 % (3.4-9.0); NEUTROPHILS % (MANUAL) 85 % (40-74)
[2019-08-18] MEDS: AMPICILLIN SOD/SULBACTAM 1.5GM 50 ML IV SCH (10:21)
[2019-08-18 10:32] LABS: ANISOCYTOSIS SLIGHT; MICROCYTOSIS SLIGHT; OVALOCYTES FEW; POIKILOCYTOSIS SLIGHT; RBC MORPHOLOGY COMMENT ABNORMAL; TEAR DROP CELLS FEW
[2019-08-18 10:33] LABS: PLATELET ESTIMATE SLIGHTLY DECREASED
[2019-08-18 10:34] LABS: PLATELET MORPHOLOGY COMMENT NORMAL
[2019-08-18] MEDS ORDERED: AMIODARONE HCL 900 MG in DEXTROSE 5% 500ML 500 ML IV SCH ×2 (14:15→15:00)
--- NOTE | 2019-08-18 14:35 | Diagnostic Imaging Report ---
History: AMS Comparison studies: CT head 11/13/2018 Technique: Sagittal T2; axial DWI, FLAIR, MPGR, T1, Coronal FLAIR. Intravenous contrast: None Findings: Scalp: Normal in signal . No masses . Bone marrow: Normal in signal intensity. Extra-axial: No masses, no fluid collections. Brain sulci: Mildly prominent. Ventricles: Mildly prominent . No hydrocephalus . Parenchyma: Scattered small T-2/flair hyperintensities of the periventricular and deep white matter, most commonly seen with mild chronic microvascular ischemic changes. Similar changes at the my No masses, hemorrhage, acute or chronic vascular insults. Suprasellar region: No abnormalities. Craniocervical junction: No abnormalities. Patent foramen magnum. No Chiari one malformation. Vessels: Normal flow-voids in the arteries and sinuses. IMPRESSION: 1. No acute abnormalities. 2. Mild chronic microvascular ischemic changes of the white matter and mild diffuse volume loss. Signed by: DR Carson Celaya M.D. on 08/18/2019 2:31 PM
--- NOTE | 2019-08-18 15:10 | NUR ---
Nutrition Intervention Note RD Recommendation(s) for Physician: - Continue current TF of Nepro at 35 ml/hr, providing 1512 kcal and 68 gm protein - Water flushes and fluid management per MD Plan of Care: RD following, monitoring for tolerance and adequacy Nutrition reason for involvement: Nutrition Risk Trigger, Follow up- new EN RD Assessment 08/18: Pt seen 2/2 now on EN. Pt continues with AMS and requiring BiPAP, off BiPAP and receiving breathing treatment at time of visit. Pt tolerating TF at goal rate of 35 ml/hr. Will continue to monitor. (08/14/19) Chart reviewed. Labs and meds reviewed. Pt is a 74 year old female admitted with confusion, elevated troponin, ESRD, hypoxia, respiratory failure with hypercapnia, sacral closed fracture, and T12 compression fracture. Pt is NPO due to decreased alertness. Pt was on BiPAP at time of visit; therefore, spoke to family member at bedside. Family member stated pts intake varies and usually eats small portions. Family member is unsure of pts usual wt. Pt had vomiting last night per family member. No chewing/swallowing issues prior to admission. It is also noted that pt has a stage 2 pressure ulcer to sacrum. Wound care consult is pending. Will continue to monitor. Primary Diagnose(s): confusion, elevated troponin, ESRD, hypoxia, respiratory failure with hypercapnia, sacral closed fracture, and T12 compression fracture PMH: chronic afib, ESRD on dialysis, chronic anemia, diabetes, hypothyroid, COPD GI: LBM 08/18 Skin: sacral stage II Labs: 08/18: Na 136, K 4.5, BUN 66, Cr 6.34, Phos 2.4, Mg 2.9 Meds: humalog, amiodarone, vitamin B12, protonix, synthroid, albumin IV Ht: 62 in Wt: 185 lb 08/04, 179.19 lb 08/18 BMI: 33.8 kg/m2 IBW:110 lb Malnutrition Evaluation (08/18) The patient does not meet criteria for a specified degree of malnutrition at this time. Will re-evaluate at follow-up as appropriate. Energy intake: meeting needs with TF Weight loss: 1-2% in 1 week (Acute) Fat loss: none Muscle loss: none Supporting Evidence: Fluid accumulation: none observed Functional Status: unable to assess Nutrition Prescription (Diet Order): TF of Nepro at 35 ml/hr Estimated Nutritional Needs: 1334-7568 calories/day (22-28 kcal/kg IBW) 60-100 g protein/day (1.2-2 g pro/kg IBW) Diet Adequacy: Meeting calorie needs, Meeting protein needs Diet Tolerance: tolerating TF Diet Education Needs Assessment: Diet education not indicated, patient on temporary/transition diet. Nutrition Care Level: Mod Nutrition Diagnosis: Inability to meet needs with po related to currently requiring BiPAP and AMS as evidenced by pt now on EN. Goal: Patient will meet 75-100% of estimated needs by follow up Progress: N/A Interventions: EN- Composition, Rate, Route, Collaboration with other providers Monitoring/Evaluation: Total energy intake, Total protein intake, Formula/Solution Signed: Jessica To RD, LD, CNSC
[2019-08-18] MEDS: ENOXAPARIN SOD INJ 60 MG/0.6 ML SYR SC SCH (18:09)
--- NOTE | 2019-08-18 19:00 | NUR ---
Report received. Assumed care. Assessment done. See interventions. Dialysis in progress. Unable to reposition at this time due to dialysis. Amiodarone @ 0.5mg/hr. NGT with Nepro TF @ 35ml/hr.
--- NOTE | 2019-08-18 19:06 | NUR ---
Ciaran Julian, and George agree on transfer to [facility].
--- NOTE | 2019-08-18 23:25 | NUR ---
HR 160, BP 159/83. Metoprolol held on day shift. Unscheduled dose given.
[2019-08-19] VITALS (24 sets, daily range): BP systolic 87–153; BP diastolic 49–80
[2019-08-19] MEDS: LEVALBUTEROL HCL SOLN NEBU 1.25 MG/3 ML NEB INH SCH ×6 (02:45→23:30)
--- NOTE | 2019-08-19 05:20 | NUR ---
Cleaned for mod soft brown stool and vaginal discharge.
[2019-08-19] MEDS: LEVOTHYROXINE SODIUM 88 MCG TAB PO SCH (06:10)
[2019-08-19] MEDS: INSULIN LISPRO 100 UNIT/1 ML 3ML VIAL SQ SCH ×4 (06:10→23:44)
[2019-08-19] MEDS: CYANOCOBALAMIN 1,000 MCG TAB PO SCH (14:11)
[2019-08-19] MEDS: METOPROLOL TARTRATE 50 MG TAB PO SCH ×2 (14:11→17:00)
[2019-08-19] MEDS: BALSAM PERU/CASTOR OIL 60 GM OINT...G. TP SCH (14:11)
[2019-08-19] MEDS: AMIODARONE HCL 200 MG TAB PO SCH (14:11)
[2019-08-19] MEDS: PANTOPRAZOLE 40 MG 10ML VIAL IV SCH (14:11)
[2019-08-19] MEDS: AMPICILLIN SOD/SULBACTAM 1.5GM 50 ML IV SCH (14:11)
[2019-08-19] MEDS: ENOXAPARIN SOD INJ 60 MG/0.6 ML SYR SC SCH (18:36)
--- NOTE | 2019-08-19 23:33 | NUR ---
PATIENT WAS JUST TRANSFERRED TO RM 199 FROM RM 192, SHE IS AWAKE ALERT AND ORIENTED AT THIS TIME. VITALS CHECKED, RESIDUAL NGT IS 5 CC AT THIS TIME. BLOOD SUGAR CHECKED. PER REPORTS SHE HAS INTERMITTENT CONFUSION. WILL CONTINUE TO MONITOR.
[2019-08-20] VITALS (7 sets, daily range): BP systolic 99–130; BP diastolic 46–77
[2019-08-20] MEDS: LEVALBUTEROL HCL SOLN NEBU 1.25 MG/3 ML NEB INH SCH ×6 (03:05→23:40)
--- NOTE | 2019-08-20 03:38 | NUR ---
CHECK NG TUBE RESIDUAL ITS LESS THAN 5 CC AT THIS TIME. PATIENT JUST HAD A MODERATE SOFT BOWEL MOVEMENT. REPOSITION PATIENT IN BED, DIAPER CHANGED, CALL LIGHT WITHIN REACH ,WILL CONTINUE TO MONITOR.
[2019-08-20 05:12] LABS: BASOPHILS % 0.2 % (0.0-1.0); EOSINOPHILS # (AUTO) 0.2 (0.0-0.4); EOSINOPHILS % 2.2 % (0.0-6.0); HEMATOCRIT 28.5 % (34.2-44.1); HEMOGLOBIN 8.7 g/dL (12.0-16.0); LYMPHOCYTES # (AUTO) 0.6 (1.0-3.2); LYMPHOCYTES % 6.7 % (18.0-39.1); MEAN CORPUSCULAR HGB CONC 30.5 g/dL (31-35); MONOCYTES # (AUTO) 0.7 (0.2-0.8); MONOCYTES % 7.9 % (4.4-11.3); NEUTROPHILS # (AUTO) 6.6 (2.1-6.9); NEUTROPHILS % 80.1 % (38.7-80.0); PLATELET COUNT 106 x10e3/uL (140-360); RED CELL DISTRIBUTION WIDTH 17.3 % (11.7-14.4)
[2019-08-20 05:35] LABS: ALBUMIN 2.8 g/dL (3.5-5.0); ALBUMIN/GLOBULIN RATIO 0.8 (0.8-2.0); CALCIUM 9.3 mg/dL (8.4-10.2); CREATININE, SERUM 5.08 mg/dL (0.57-1.11)
[2019-08-20] MEDS: INSULIN LISPRO 100 UNIT/1 ML 3ML VIAL SQ SCH ×3 (06:08→17:37)
[2019-08-20] MEDS: LEVOTHYROXINE SODIUM 88 MCG TAB PO SCH (06:15)
[2019-08-20] MEDS: BALSAM PERU/CASTOR OIL 60 GM OINT...G. TP SCH (08:32)
[2019-08-20] MEDS: AMIODARONE HCL 200 MG TAB PO SCH (08:32)
[2019-08-20] MEDS: METOPROLOL TARTRATE 50 MG TAB PO SCH ×2 (08:32→17:30)
[2019-08-20] MEDS: PANTOPRAZOLE 40 MG 10ML VIAL IV SCH (08:32)
[2019-08-20] MEDS: CYANOCOBALAMIN 1,000 MCG TAB PO SCH (08:32)
[2019-08-20] MEDS ORDERED: ONDANSETRON HCL 4 MG ORAL DISINTEGRATING TAB PO PRN (10:00)
--- NOTE | 2019-08-20 13:11 | NUR ---
Pt put on PT hold
--- NOTE | 2019-08-20 13:14 | NUR ---
Previous note of pt being on hold sent in error, please ignore. Thank you. Addendum: 08/20/19 at 1315 by SHANE IVORY PTA Amended: Links added.
[2019-08-20] MEDS: AMPICILLIN SOD/SULBACTAM 1.5GM 50 ML IV SCH (14:17)
[2019-08-20] MEDS: ENOXAPARIN SOD INJ 60 MG/0.6 ML SYR SC SCH (17:30)
--- NOTE | 2019-08-20 17:38 | NUR ---
INFORMED DR OWENS SPEECH THERAPY TO [facility] IN AM, OK TO Mara/Roxie MANDUJANO IN AM PRIOR TO SPEECH THERAPY [facility]
[2019-08-21 00:23] VITALS: BP 103/51
[2019-08-21] MEDS: LEVALBUTEROL HCL SOLN NEBU 1.25 MG/3 ML NEB INH SCH ×6 (02:40→23:20)
[2019-08-21] MEDS: LEVOTHYROXINE SODIUM 88 MCG TAB PO SCH (05:41)
[2019-08-21] MEDS: INSULIN LISPRO 100 UNIT/1 ML 3ML VIAL SQ SCH ×4 (05:41→18:15)
[2019-08-21 07:10] VITALS: BP 115/56
[2019-08-21 07:11] VITALS: BP 115/56
[2019-08-21] MEDS: BALSAM PERU/CASTOR OIL 60 GM OINT...G. TP SCH (09:46)
[2019-08-21] MEDS: CYANOCOBALAMIN 1,000 MCG TAB PO SCH (09:46)
[2019-08-21] MEDS: AMIODARONE HCL 200 MG TAB PO SCH (09:46)
[2019-08-21] MEDS: METOPROLOL TARTRATE 50 MG TAB PO SCH ×2 (09:46→18:09)
[2019-08-21] MEDS: AMPICILLIN SOD/SULBACTAM 1.5GM 50 ML IV SCH (09:46)
[2019-08-21] MEDS: PANTOPRAZOLE 40 MG 10ML VIAL IV SCH (09:46)
[2019-08-21 12:00] VITALS: BP 121/58
--- NOTE | 2019-08-21 12:14 | NUR ---
WOUND CARE F/U FOR 74 YO FEMALE JAVI Roach ON MODERATE PUP ON ALTERNATING PRESSURE MATTRESS PATIENT STAGE 1 ULCERATION SMALLER IN SIZE NONBLANCHABLE AREA NOW [id number] NURSING TO CONTINUE TO MAINTAIN MODERATE PUP STATUS AND VISCO SURFACE NURSING TO CONTINUE TO ASSIST PATIENT OUT OF BED FOR MEALS AND TOLERATED NURSING TO CONTINUE TO MAINTAIN BILATERAL PILLOW SUSPENSION OF RT AND LFT HEELS NURSING TO APPLY DAILY VENELEX OINTMENT TO SACRAL AREA COVER WITH ALLEVYN FOAM Addendum: 08/21/19 at 1219 by Javier Villagran RN Amended: Links added.
--- NOTE | 2019-08-21 15:24 | NUR ---
PT HAS SNF ORDER, PT HAS NOT BEEN ABLE TO BE SEEN FROM PHYSICAL THERAPY UNABLE TO PROCESS SNF REFERRAL AT THIS TIME, WILL CONTINUE WHEN GET INFORMATION NEEDED.
[2019-08-21 16:30] VITALS: BP 117/55
--- NOTE | 2019-08-21 17:10 | NUR ---
RECEIVED PT FROM [facility] VIA [facility]OSPITAL BED IN STABLE CONDITION. PT ORIENTED TO ROOM AND CALL LIGHT. SAFETY FEATURES IN PLACE. DAUGHTER IS AT THE BEDSIDE
--- NOTE | 2019-08-21 19:52 | NUR ---
RECEIVED PT IN BED AOX1 .PT IS CONFUSED .TELE SHOWS CONTROLLED AFIB .STAGE 2 AT [facility]CRUM .CALL LIGHT WITH IN REACH .CONTINUE TO MONITOR
--- NOTE | 2019-08-21 20:08 | NUR ---
RECEIVED PT IN BED AOX1 /RESPIRATIONS ARE EVEN AND UNLABORED .TELE SHOWS AFIB .STAGE 2 AT THE SACRUM .DENIES PAIN .CALL LIGHT WITH IN REACH .CONTINUE TO MONITOR
[2019-08-21 20:10] VITALS: BP 158/96
[2019-08-22] VITALS (8 sets, daily range): BP systolic 123–158; BP diastolic 57–96
[2019-08-22] MEDS: LEVALBUTEROL HCL SOLN NEBU 1.25 MG/3 ML NEB INH SCH ×6 (03:08→23:17)
[2019-08-22] MEDS: INSULIN LISPRO 100 UNIT/1 ML 3ML VIAL SQ SCH ×5 (06:00→21:01)
[2019-08-22] MEDS: LEVOTHYROXINE SODIUM 88 MCG TAB PO SCH (06:30)
--- NOTE | 2019-08-22 06:38 | NUR ---
PT RESTED DURING THE NIGHT .PT HAD BATH NO ACUTE DISTRESS NOTES .CALL LIGHT WITH IN REACH .CONTINUE TO MONITOR
--- NOTE | 2019-08-22 07:00 | NUR ---
RECEIVED PATIENT RESTING IN BED NO S/S OF DISTRESS. BED LOW, WHEELS LOCKED, SIDE RAILS X2. CALL LIGHT IN REACH WILL CONTINUE TO MONITOR PATIENT.
--- NOTE | 2019-08-22 07:06 | NUR ---
BEDSIDE REPORT GIVEN TO THE ONCOMING NURSE
[2019-08-22] MEDS: METOPROLOL TARTRATE 50 MG TAB PO SCH ×2 (08:43→16:57)
[2019-08-22] MEDS: BALSAM PERU/CASTOR OIL 60 GM OINT...G. TP SCH (08:44)
--- NOTE | 2019-08-22 09:45 | NUR ---
PT SINGED CHOICE FOR [facility] IN [place]. FILED IN CHART, FAXED CLINICALS TO [phone], WAITING ON AUTH
[2019-08-22] MEDS: LIDOCAINE 4% PATCH TP SCH (11:36)
[2019-08-22] MEDS: HYDROCODONE/APAP 5MG-325MG TAB PO PRN ×2 (11:36→21:07)
--- NOTE | 2019-08-22 11:37 | NUR ---
PAGED DR. STONE TO NOTIFY OF PATIENT REFUSING TO CONTINUE DIALYSIS DUE TO PAIN. LIDOCAINE PATCH AND NORCO GIVEN TO PATIENT.
--- NOTE | 2019-08-22 12:34 | NUR ---
EDUCATED ABOUT IMM, SIGNED, FILED IN CHART, WITH COPY LEFT WITH FAMILY AT BEDSIDE
[2019-08-22] MEDS ORDERED: SODIUM CHLORIDE 0.9% 250ML 250 ML ONE (12:38)
[2019-08-22] MEDS: AMIODARONE HCL 200 MG TAB PO SCH (12:44)
[2019-08-22] MEDS: CYANOCOBALAMIN 1,000 MCG TAB PO SCH (12:44)
[2019-08-22] MEDS: AMPICILLIN SOD/SULBACTAM 1.5GM 50 ML IV SCH (12:44)
[2019-08-22] MEDS: PANTOPRAZOLE 40 MG 10ML VIAL IV SCH (12:44)
--- NOTE | 2019-08-22 14:45 | Progress Note ---
DATE: 08/19/2019 SUBJECTIVE: Ms. Garcia is doing very well. She was extubated. She is awake, alert, responds to commands. No complaint from the GI standpoint. Her NG tube is still in place. We are waiting on the evaluation by the speech therapist to see if she can swallow and the tube will be pulled out and then the patient will be started feeding. This is the patient with apparently a liver malignancy with some metastasis and she will be going to hospice care. Tabatha Mcginnis MD RD/MODL /[id number]
--- NOTE | 2019-08-22 15:20 | NUR ---
Visit made by the Spiritual Care Department Alaina Chadwick. PV provided pastoral presence, hospitality, and supportive listening. Pt identifies as Christian. Pastoral Visitor informed pt/family of the scope of [employer] Services and availability. EDMOND Downslain Spiritual Care Department O: [phone]
--- NOTE | 2019-08-22 16:12 | NUR ---
Follow up Note RD Recommendation(s) for Physician: - Recommend Renal Diet - Nepro daily for added nutrition Plan of Care: RD following, monitoring for tolerance and adequacy Nutrition reason for involvement: Follow up RD Assessment (08/22/19) Pt is no longer on tube feeding and was started on a diet yesterday. Pt stated she is eating 50% of her meals at this time and had been eating <50% of her meals prior to admission for > 1 month. Pt reported she had lost weight when she started dialysis. Pt used to weigh 260 lbs in 2014. Pt has weights ranging from 180-185 lbs in chart during this admission. Pt usually drinks Nepro nutrition supplements and was interested in receiving the supplement during admission. Pt reports some nausea. No chewing/swallowing issues. Will continue to monitor. 08/18: Pt seen 2/ now on EN. Pt continues with AMS and requiring BiPAP, off BiPAP and receiving breathing treatment at time of visit. Pt tolerating TF at goal rate of 35 ml/hr. Will continue to monitor. (08/14/19) Chart reviewed. Labs and meds reviewed. Pt is a 74 year old female admitted with confusion, elevated troponin, ESRD, hypoxia, respiratory failure with hypercapnia, sacral closed fracture, and T12 compression fracture. Pt is NPO due to decreased alertness. Pt was on BiPAP at time of visit; therefore, spoke to family member at bedside. Family member stated pts intake varies and usually eats small portions. Family member is unsure of pts usual wt. Pt had vomiting last night per family member. No chewing/swallowing issues prior to admission. It is also noted that pt has a stage 2 pressure ulcer to sacrum. Wound care consult is pending. Will continue to monitor. Primary Diagnose(s): confusion, elevated troponin, ESRD, hypoxia, respiratory failure with hypercapnia, sacral closed fracture, and T12 compression fracture PMH: chronic afib, ESRD on dialysis, chronic anemia, diabetes, hypothyroid, COPD GI: last recorded BM 08/22 Skin: sacral stage I per wound care note Labs: 08/20: BUN 62, Creat 5.08, Glu 131, Mg 2.9, Phos 2.4, K 4.0 08/18: Na 136, K 4.5, BUN 66, Cr 6.34, Phos 2.4, Mg 2.9 Meds: protonix, ampicillin, insulin lispro, metroprolol, ondansetron, mannitol, NaCl Ht: 62 in Wt: 185 lb 08/04, 179.19 lb 08/18 180 lbs 08/19 BMI: 32.9 kg/m2 IBW:110 lb Malnutrition Evaluation (08/22) The patient does not meet criteria for a specified degree of malnutrition at this time. Will re-evaluate at follow-up as appropriate. Energy intake: Pt reports eating 50% of her meals Weight loss: Pt used to weigh 260 lbs in 2014. Pt has weights ranging from 180-185 lbs in chart for this admission. Fat loss: none Muscle loss: none Supporting Evidence: Fluid accumulation: none observed Functional Status: unable to assess Nutrition Prescription (Diet Order): Regular Diet Estimated Nutritional Needs: 7291-9151 calories/day (22-28 kcal/kg IBW) 60-100 g protein/day (1.2-2 g pro/kg IBW) Diet Adequacy: Pt reports eating 50% of her meals Diet Tolerance: tolerating PO Diet Education Needs Assessment: Pt was not interested in diet education at time of visit Nutrition Care Level: low Nutrition Diagnosis: Inability to meet needs with po related to currently requiring BiPAP and AMS as evidenced by pt now on EN. (Resolved) Inadequate energy intake related to decreased ability to consume sufficient energy secondary to decreased appetite as evidenced by pt consuming < or equal to 50% of meals per pt report. Goal: Patient will meet 75-100% of estimated needs by follow up Progress: pt is progressing towards goal (50% meal intake at this time per pt report) Interventions: Mineral - modified diet, Commercial beverage, Recommended Modifications Monitoring/Evaluation: -Total energy intake, Total protein intake, Modified diet, Liquid supplement, Weight change Signed: Mariah Mendenhall, ASHLEY, LD
--- NOTE | 2019-08-22 19:05 | NUR ---
received report from day nurse. patient is resting comfortably in bed. bed is in lowest position and call roy is within reach. will continue to monitor patient's plan of care.
[2019-08-23] VITALS (8 sets, daily range): BP systolic 125–159; BP diastolic 56–72
[2019-08-23] MEDS: LEVALBUTEROL HCL SOLN NEBU 1.25 MG/3 ML NEB INH SCH ×6 (02:15→22:51)
[2019-08-23] MEDS: INSULIN LISPRO 100 UNIT/1 ML 3ML VIAL SQ SCH ×4 (05:59→23:58)
[2019-08-23] MEDS: LEVOTHYROXINE SODIUM 88 MCG TAB PO SCH (05:59)
[2019-08-23] MEDS: HYDROCODONE/APAP 5MG-325MG TAB PO PRN ×3 (06:00→23:42)
--- NOTE | 2019-08-23 07:06 | NUR ---
report given to day nurse. patient is resting comfortably in bed. bed is in lowest position and call roy is within reach.
[2019-08-23] MEDS: BALSAM PERU/CASTOR OIL 60 GM OINT...G. TP SCH (09:00)
[2019-08-23] MEDS: AMIODARONE HCL 200 MG TAB PO SCH (09:14)
[2019-08-23] MEDS: PANTOPRAZOLE 40 MG 10ML VIAL IV SCH (09:14)
[2019-08-23] MEDS: METOPROLOL TARTRATE 50 MG TAB PO SCH ×2 (09:15→16:40)
[2019-08-23] MEDS: CYANOCOBALAMIN 1,000 MCG TAB PO SCH (09:15)
[2019-08-23] MEDS: LIDOCAINE 4% PATCH TP SCH (09:17)
[2019-08-23] MEDS: AMPICILLIN SOD/SULBACTAM 1.5GM 50 ML IV SCH (10:06)
--- NOTE | 2019-08-23 17:06 | Progress Note ---
DATE: 08/23/2019 SUBJECTIVE: Luz Garcia found to have multiple intraabdominal metastatic masses, suspect metastatic disease. Otherwise, denying any dyspnea. She is more alert and more awake, asking appropriate questions. OBJECTIVE: VITAL SIGNS: Temperature 96.9, pulse 94, blood pressure 140/72. CHEST: Clear. EXTREMITIES: Trace edema. ABDOMEN: Soft. LABORATORY DATA: CT scan of the abdomen showing multiple masses in the liver, spleen as well as pyloric thickening. Hemoglobin is 8.7. Last potassium was 4.0. ASSESSMENT: 1. End-stage renal disease, fluid overload, now controlled. 2. Likely metastatic disease. 3. Anemia of chronic kidney disease. PLAN: Hold on erythropoietin. Given poor prognosis, suggest moving slowly towards palliative care. Unclear how far she wants to be worked up, but we will follow along for now. MD YEMI RicksK/MODMagdy /[id number]
--- NOTE | 2019-08-23 19:38 | NUR ---
pt refusing tx due to having frequent bowel movements, nurse states possible hospice.. Addendum: 08/23/19 at 1943 by Rik Butler PTA Amended: Links added.
[2019-08-24] VITALS (8 sets, daily range): BP systolic 107–147; BP diastolic 53–64
[2019-08-24] MEDS: LEVALBUTEROL HCL SOLN NEBU 1.25 MG/3 ML NEB INH SCH ×6 (03:00→23:14)
[2019-08-24] MEDS: INSULIN LISPRO 100 UNIT/1 ML 3ML VIAL SQ SCH ×3 (06:00→16:45)
[2019-08-24] MEDS: LEVOTHYROXINE SODIUM 88 MCG TAB PO SCH (06:02)
--- NOTE | 2019-08-24 07:02 | NUR ---
GAVE REPORT TO ONCOMING NURSE. PATIENT IN BED. CALL LIGHT WITHIN REACH.
--- NOTE | 2019-08-24 07:30 | NUR ---
Pt aox4 in bed. Medicated for pain at this time. 0 s/s of acute distress noted.
[2019-08-24] MEDS: PANTOPRAZOLE 40 MG 10ML VIAL IV SCH (08:27)
[2019-08-24] MEDS: HYDROCODONE/APAP 5MG-325MG TAB PO PRN ×3 (08:27→22:44)
[2019-08-24] MEDS: AMIODARONE HCL 200 MG TAB PO SCH (08:27)
[2019-08-24] MEDS: CYANOCOBALAMIN 1,000 MCG TAB PO SCH (08:27)
[2019-08-24] MEDS: METOPROLOL TARTRATE 50 MG TAB PO SCH ×2 (08:27→16:45)
[2019-08-24] MEDS: LIDOCAINE 4% PATCH TP SCH (08:32)
[2019-08-24] MEDS: BALSAM PERU/CASTOR OIL 60 GM OINT...G. TP SCH (09:00)
--- NOTE | 2019-08-24 14:35 | NUR ---
Visit made by the Spiritual Care Department Pastoral Visitor, Antonio Kessler. PV provided pastoral presence, hospitality, and supportive listening. Pt identifies as [employer]. Pastoral Visitor informed pt/family of the scope of [facility] and availability. EDMOND COTO [facility] Spiritual Care Department O: [phone] Pager: [phone] ([phone] number calling from)
--- NOTE | 2019-08-24 19:08 | NUR ---
Received report from previous nurse. Call light within reach. Patient in bed.
[2019-08-25] VITALS (7 sets, daily range): BP systolic 99–160; BP diastolic 45–68
[2019-08-25] MEDS: INSULIN LISPRO 100 UNIT/1 ML 3ML VIAL SQ SCH ×5 (00:20→23:12)
[2019-08-25] MEDS: LEVALBUTEROL HCL SOLN NEBU 1.25 MG/3 ML NEB INH SCH ×6 (03:10→23:15)
[2019-08-25] MEDS: LEVOTHYROXINE SODIUM 88 MCG TAB PO SCH (05:50)
--- NOTE | 2019-08-25 07:00 | NUR ---
received am report and rounds done. pt is alert resting in bed, no s/s of distress. call light within reach and bed safety implemented. instructed pt to call RN for help
--- NOTE | 2019-08-25 07:25 | NUR ---
Gave report to oncoming nurse. call light within reach. patient in bed.
[2019-08-25] MEDS: HYDROCODONE/APAP 5MG-325MG TAB PO PRN ×4 (07:47→23:44)
[2019-08-25] MEDS: AMIODARONE HCL 200 MG TAB PO SCH ×2 (09:00→16:07)
[2019-08-25] MEDS: BALSAM PERU/CASTOR OIL 60 GM OINT...G. TP SCH (09:00)
[2019-08-25] MEDS: PANTOPRAZOLE 40 MG 10ML VIAL IV SCH ×2 (09:00→16:07)
[2019-08-25] MEDS: CYANOCOBALAMIN 1,000 MCG TAB PO SCH ×2 (09:00→16:07)
[2019-08-25] MEDS: METOPROLOL TARTRATE 50 MG TAB PO SCH ×2 (09:00→18:00)
[2019-08-25] MEDS: LIDOCAINE 4% PATCH TP SCH (09:01)
--- NOTE | 2019-08-25 09:04 | NUR ---
dialysis nurse is at the bedside
--- NOTE | 2019-08-25 10:29 | Progress Note ---
DATE: 08/25/2019 SUBJECTIVE: Seen on dialysis, tolerating procedure. Blood pressure is coming down, so we cut down the ultrafiltration goal. OBJECTIVE: VITAL SIGNS: Temperature 96.1, pulse 77, blood pressure 160/68, coming down to 110/70 on the monitor. CHEST: Not clear. EXTREMITIES: No edema. NEURO: Decreased hearing. This is chronic. LABORATORY DATA: Hemoglobin is 8.7. Last potassium was 4.0. ASSESSMENT: 1. End-stage renal disease, fluid overload, concern for metastatic disease based on CT scan done on 08/14/2019 with multiple liver metastasis as well as splenic masses that were not seen on prior CT scans. 2. Anemia, multifactorial. 3. Fluid overload, improved. PLAN: Hemodialysis today, 4-hour run, 2 potassium bath. Blood flow rate is 350. Dialysis fluid flow rate is 700. Remove 3 L (cut down from original plan to try remove 4 L). Keep salt and water restricted. Overall prognosis now appearing poor. We will follow along. Await GI followup. MD KIMBERLEY Ricks/BAMBI /[id number]
--- NOTE | 2019-08-25 11:05 | NUR ---
UPDATED CLINICALS FAXED TO [facility]; FAX: [phone]
--- NOTE | 2019-08-25 14:39 | Diagnostic Imaging Report ---
PROCEDURE: X-RAY MODIFIED BARIUM SWALLOW COMPARISON: None. INDICATION: Aspiration Radiation Details: Fluoroscopy time: 0.9 minutes Cumulative dose: 2.9 mGy DISCUSSION: Fluoroscopic examination was performed in conjunction with speech pathology during swallowing a variety of thin and thick liquid consistencies. Provided images demonstrate a single episode of laryngeal penetration and no aspiration. CONCLUSION: Modified barium swallow demonstrating a single episode of laryngeal penetration and no aspiration. Please refer to the speech pathology report for further details. Signed by: Odalys Dickerson MD on 08/25/2019 2:36 PM
--- NOTE | 2019-08-25 20:07 | NUR ---
RECEIVED PT IN BED AOX2 RT FA 20G S/L STAGE 2 SACRUM .TELE SHOWS AFIB PT IS NPO FOR EGD.PT HAD DIALYSIS AND REMOVED 2750 ML FLUID .CALL LIGHT WITH IN REACH .CONTINUE TO MONITOR
[2019-08-26] VITALS (7 sets, daily range): BP systolic 98–136; BP diastolic 52–61
[2019-08-26] MEDS: LEVALBUTEROL HCL SOLN NEBU 1.25 MG/3 ML NEB INH SCH ×6 (03:00→23:12)
[2019-08-26] MEDS: LEVOTHYROXINE SODIUM 88 MCG TAB PO SCH (05:52)
[2019-08-26] MEDS: HYDROCODONE/APAP 5MG-325MG TAB PO PRN ×4 (06:09→22:42)
--- NOTE | 2019-08-26 06:11 | NUR ---
PT C/O PAIN AND GIVEN ORDERED PAIN MEDICATION .PT IS NPO FOR EGD.CALL LIGHT WITH IN REACH .CONTINUE TO MONITOR
--- NOTE | 2019-08-26 07:00 | NUR ---
RECEIVED AM REPORT AND ROUNDS DONE. PT IS SLEEPING COMFORTABLY, NO S/S OF DISTRESS. CALL LIGHT WITHIN REACH AND BED SAFETY IMPLEMENTED.
[2019-08-26] MEDS: METOPROLOL TARTRATE 50 MG TAB PO SCH ×2 (09:00→16:17)
[2019-08-26] MEDS: PANTOPRAZOLE 40 MG 10ML VIAL IV SCH ×2 (09:02→21:45)
[2019-08-26] MEDS: BALSAM PERU/CASTOR OIL 60 GM OINT...G. TP SCH (09:03)
[2019-08-26] MEDS: LIDOCAINE 4% PATCH TP SCH (09:03)
[2019-08-26] MEDS: INSULIN LISPRO 100 UNIT/1 ML 3ML VIAL SQ SCH ×3 (11:30→21:45)
[2019-08-26 13:06] LABS: ANION GAP 15.6 mmol/L (8-16); CALCIUM 8.9 mg/dL (8.4-10.2); CREATININE, SERUM 4.5 mg/dL (0.57-1.11); POTASSIUM 3.6 mmol/L (3.5-5.1)
--- NOTE | 2019-08-26 13:06 | NUR ---
FAXED PT UPDATES TO FACILITY PER REQUEST AND STILL PENDING AUTH.
--- NOTE | 2019-08-26 14:21 | NUR ---
pt left with OR nurse to go for scheduled EGD
--- NOTE | 2019-08-26 15:52 | NUR ---
SPOKE WITH JAY AT FACILITY, SHE STATES STILL NO AUTH, SHE STATES SHE WILL CALL ME AND LET ME KNOW SOON POSSIBLE. FAXED TODAYS PT NOTES AND CONFIRMED SHE RECEIVED THEM.
--- NOTE | 2019-08-26 15:58 | NUR ---
PER DAUGHTER NIDIA DICK [phone] EDUCATED ABOUT IMM, SIGNED, FILED IN CHART, WITH COPY LEFT WITH FAMILY AT BEDSIDE.
--- NOTE | 2019-08-26 16:06 | NUR ---
PT ALSO SIGNED IMM.
[2019-08-26] MEDS: AMIODARONE HCL 200 MG TAB PO SCH (16:17)
[2019-08-26] MEDS: CYANOCOBALAMIN 1,000 MCG TAB PO SCH (16:17)
--- NOTE | 2019-08-26 16:30 | Operative Report ---
DATE OF PROCEDURE: 08/26/2019 SURGEON: William Vargas MD PROCEDURE PERFORMED: EGD with biopsies. INDICATIONS FOR EGD: Second pylorus ? mass on CT scan. MEDICATIONS: The patient was done under MAC. Please see anesthesiologist's note. PROCEDURE IN DETAIL: With the patient in left lateral decubitus position, flexible fiberoptic Olympus gastroscope was introduced into the esophagus under direct visualization without any difficulty. There was some patchy erythema noted in distal esophagus. The scope was then advanced with ease into the stomach traversing a small sliding hiatal hernia. The mucosa overlying the body and the antrum revealed some diffuse erythema and low-grade edema. The pylorus and the distal antrum appeared thick and somewhat nodular, and biopsies were obtained. The scope was then advanced all the way to the second portion of the duodenum. The scope was then withdrawn slowly. Mucosa overlying the proximal second portion and the duodenal bulb appeared to be within normal limits. The scope was then withdrawn back into the stomach and retroflexed. Mucosa overlying the fundus and cardia appeared to be within normal limits. The scope was then straightened out and it was subsequently withdrawn. The patient tolerated the procedure well. IMPRESSION: 1. Distal esophagitis, mild. 2. Small sliding hiatal hernia. 3. Gastritis. 4. Pylorus and distal antrum somewhat second nodular, biopsies obtained. PLAN: Follow up histology. Increase Protonix to 40 mg p.o. before meals and at bedtime. William Vargas MD [facility] [place]/MODL /[id number] cc: Rik Gallego MD
[2019-08-26] MEDS ORDERED: PROPOFOL IV EMULSION 10 MG/ML 20 ML VIAL ONE (18:50)
--- NOTE | 2019-08-26 19:10 | NUR ---
Patient visited in room during nursing rounds. Patient alert and oriented x3. Pt is bedbound but able to turn self in bed. Left upper arm AV fistula (limb alert). Pt with frequent lower back pain but has ice pack on back that helps patient. Call roy within reach.
[2019-08-27 00:15] VITALS: BP 128/58
[2019-08-27] MEDS: LEVALBUTEROL HCL SOLN NEBU 1.25 MG/3 ML NEB INH SCH ×3 (03:00→11:00)
[2019-08-27 04:00] VITALS: BP 111/53
[2019-08-27] MEDS: HYDROCODONE/APAP 5MG-325MG TAB PO PRN ×3 (04:11→12:52)
[2019-08-27] MEDS: LEVOTHYROXINE SODIUM 88 MCG TAB PO SCH (05:50)
[2019-08-27] MEDS: INSULIN LISPRO 100 UNIT/1 ML 3ML VIAL SQ SCH ×3 (07:30→16:30)
--- NOTE | 2019-08-27 07:30 | NUR ---
PATIENT IS ALERT AND IN STABLE CONDITION WITH NO S/S OF RESPIRATORY DISTRESS- PATIENT C/O BACK PAIN 02/07 BUT RECEIVED PAIN MEDICATION. PATIENT AWARE PAIN MEDICATION IS NOT AVAILABLE AT THIS TIME. 02 APPLIED AT 3L NC. TELEMETRY APPLIED. STAGE 2 SACRUM NOTED- ALLEVYN PAD APPLIED. BED ALARM APPLIED. CALL LIGHT IS WITHIN REACH, PATIENT INSTRUCTED TO CALL FOR ASSISTANCE NEEDED.
[2019-08-27] MEDS: METOPROLOL TARTRATE 50 MG TAB PO SCH ×2 (07:46→17:07)
[2019-08-27] MEDS: AMIODARONE HCL 200 MG TAB PO SCH (07:46)
[2019-08-27 07:54] VITALS: BP 156/66
[2019-08-27] MEDS: CYANOCOBALAMIN 1,000 MCG TAB PO SCH (08:04)
[2019-08-27] MEDS: PANTOPRAZOLE 40 MG 10ML VIAL IV SCH (08:04)
[2019-08-27] MEDS: BALSAM PERU/CASTOR OIL 60 GM OINT...G. TP SCH (08:06)
[2019-08-27] MEDS: LIDOCAINE 4% PATCH TP SCH (08:06)
--- NOTE | 2019-08-27 08:37 | NUR ---
ASSISTED FACILITY DISCHARGE INFORMATION PATIENT HAS BEEN ACCEPTED TO: NAME: [facility] ADDRESS: [address] ACCEPTING MD:MEGGAN ROOM: 45B NURSE CALL REPORT TO: IMM SIGNED AND OBTAINED (if applicable): IMM THE FOLLOWING DOCUMENTS MUST ACCOMPANY PATIENT FOR TRANSFER: COPIED CHART: CLINICALS AND PASRR
--- NOTE | 2019-08-27 09:08 | NUR ---
PATIENT STARTING DIALYSIS- PATIENT IN STABLE CONDITION WITH NO S/S OF RESPIRATORY DISTRESS.
[2019-08-27 09:35] VITALS: BP 156/66
--- NOTE | 2019-08-27 12:52 | NUR ---
PATIENT COMPLETED DIALYSIS 2 LITERS REMOVED. PATIENT IN STABLE CONDITION WITH NO S/S OF RESPIRATORY DISTRESS. BP 120/73; HR 99. PAIN MEDICATION ADMINISTERED TO PATIENT. PATIENT TURNED TO HER LEFT SIDE.
--- NOTE | 2019-08-27 14:11 | Progress Note ---
DATE: 08/27/2019 SUBJECTIVE: Luz Garcia seen on dialysis, tolerating procedure, had EGD with biopsies. As noted, found to have possible history of GI masses that may be metastatic disease. CT scan did not show any metastatic disease in the head. PHYSICAL EXAMINATION: GENERAL: Lying in bed, no distress. VITAL SIGNS: Temperature 97.1, pulse 80, blood pressure 156/66. CHEST: Clear. ABDOMEN: Soft. EXTREMITIES: No edema. Access is patent. LABORATORY DATA: Hemoglobin is 8.7 when last checked, last potassium 3.6, creatinine 4.5, BUN 32, calcium 8.9, phosphorus was 2.4. ASSESSMENT: 1. End-stage renal disease, fluid overload, altered mental status, related secondary from the Neurontin is now better. 2. Metastatic disease. 3. Lumbar spondylosis and compression fractures. PLAN: Hemodialysis today 4 hour run, increase the ultrafiltration rate goal to 3.5 liters, 3 potassium bath, blood flow rate 350 mL/minute, dialysate flow rate 700 mL/minute. We will follow along. MD YEMI RicksK/BAMBI /[id number]
[2019-08-27 15:48] VITALS: BP 118/87
[2019-08-27 15:50] VITALS: BP 120/59
--- NOTE | 2019-08-27 18:41 | NUR ---
PATIENT DISCHARGE TO [facility]- PATIENT OFF THE UNIT AT 1830 PER STRETCHER WITH 2 PERSON EMS SERVICE. PATIENT IN STABLE CONDITION WITH NO S/S OF RESPIRATORY DISTRESS. IV REMOVED WITH TIP INTACT. TRANSFER PACKET GIVEN TO THE EMS SERVICE. ALL PERSONAL ITEMS TAKEN WITH THE PATIENT AND EMS SERVICE.
--- NOTE | 2019-08-28 05:32 | Discharge Summary ---
PRIMARY CARE PHYSICIAN: Moe Sanford MD CONSULTANTS: 1. Miri Baez MD. 2. John Paul Allen MD. 3. William Vargas MD. 4. Vitor Wagoner MD. FINAL DIAGNOSES: 1. Status post toxic encephalopathy/metabolic encephalopathy. 2. Basilar pneumonia community acquired, most likely. 3. End-stage renal disease, required dialysis. 4. Acute on chronic systolic dysfunction, congestive heart failure associated with respiratory failure. 5. Finding of multiple masses in the liver and spleen consistent with metastasis, thickening of the pylorus, status post EGD done. Biopsy is obtained from the EGD. The patient has distal esophagitis, small sliding hiatal hernia, gastritis. Pyloric and distal antrum 2nd nodular biopsy obtained, pending result. Patient will follow up with Dr. William Vargas. SUMMARY: The patient is a 74-year-old female, very hard of hearing, chronically ill with end-stage renal disease, required dialysis. Congestive heart failure, ejection fraction approximately 30-35%. She is chronically anemic with also recurrent fall at this time. She had a compression fractures of L1 lumbar spine. She has chronic lower back pain, on chronic pain medication, was taken gabapentin 4 mg 3 times a day and apparently when she presented to the hospital, she was lethargic, respiratory failure with basilar infiltrate. The patient was given antibiotics. She was also very confused and required BiPAP and NG tube placement and subsequently feeding. The patient was very confused. MRI of the brain did not show any insult acutely. The patient was basically in either toxic or metabolic encephalopathy, which she is now completely resolved. She is back to her baseline. Again, discussed with the patient regarding the lesion finding in the liver and possible metastasis. She did have a workup with EGD done and biopsy of the stomach was taken. With regard to the patient's metastasis, the patient has poor functional status overall. She opt to not do anything at this point, and we will continue to monitor closely. Discussed with the patient regarding possibilities of malignancy with metastasis and she is very aware of the condition and that she does want to wait and see how she does overall. She is able to tolerate her diet. She gets dialysis, she tolerated it well. The patient is stable. She has a bed at the skilled facility. The patient will be transferred today. Medication reconciliation is done. The patient instructed to follow up with Dr. William Vargas for the biopsy results. She will continue to follow up with Dr. Moe Sanford as well. The patient will continue with dialysis. The patient is stable, discharged to skilled facility today. MD TIM Lucero/BAMBI /[id number]
== END 2019-08-27 18:30 | DRG 291 ==
LOC: ER 23:09 → ERHOLD 08-14 02:44 → ICU 08-14 03:38 → IMCU 08-19 23:09 → MED/SURG3 08-21 17:14
PROVIDERS: ADMIT Internal Medicine; ATTEND Internal Medicine
PROC: 5A1D70Z Performance of Urinary Filtration, Intermittent, Less than 6 Hours Per Day (ICD-10-PCS; 2019-08-14)
PROC: 5A1D70Z Performance of Urinary Filtration, Intermittent, Less than 6 Hours Per Day (ICD-10-PCS; 2019-08-15)
PROC: 5A1D70Z Performance of Urinary Filtration, Intermittent, Less than 6 Hours Per Day (ICD-10-PCS; 2019-08-18)
PROC: 5A1D70Z Performance of Urinary Filtration, Intermittent, Less than 6 Hours Per Day (ICD-10-PCS; 2019-08-20)
PROC: 5A1D70Z Performance of Urinary Filtration, Intermittent, Less than 6 Hours Per Day (ICD-10-PCS; 2019-08-22)
PROC: 5A1D70Z Performance of Urinary Filtration, Intermittent, Less than 6 Hours Per Day (ICD-10-PCS; 2019-08-25)
PROC: 0DB78ZX Excision of Stomach, Pylorus, Via Natural or Artificial Opening Endoscopic, Diagnostic (ICD-10-PCS; principal; 2019-08-26 14:51)
PROC: 5A1D70Z Performance of Urinary Filtration, Intermittent, Less than 6 Hours Per Day (ICD-10-PCS; 2019-08-27)
DX: I13.2 Hypertensive heart and chronic kidney disease with heart failure and with stage 5 chronic kidney disease, or end stage renal disease (principal); I50.23 Acute on chronic systolic (congestive) heart failure; N18.6 End stage renal disease; G92 Toxic encephalopathy; S22.080A Wedge compression fracture of T11-T12 vertebra, initial encounter for closed fracture; S32.010A Wedge compression fracture of first lumbar vertebra, initial encounter for closed fracture; J96.11 Chronic respiratory failure with hypoxia; J96.12 Chronic respiratory failure with hypercapnia; I48.20 Chronic atrial fibrillation, unspecified; C78.7 Secondary malignant neoplasm of liver and intrahepatic bile duct; C78.89 Secondary malignant neoplasm of other digestive organs; K22.10 Ulcer of esophagus without bleeding; E11.22 Type 2 diabetes mellitus with diabetic chronic kidney disease; Z99.2 Dependence on renal dialysis; E03.9 Hypothyroidism, unspecified; J44.9 Chronic obstructive pulmonary disease, unspecified; R19.06 Epigastric swelling, mass or lump; E87.5 Hyperkalemia; I25.10 Atherosclerotic heart disease of native coronary artery without angina pectoris; Z95.1 Presence of aortocoronary bypass graft; Z87.891 Personal history of nicotine dependence; K31.9 Disease of stomach and duodenum, unspecified; E66.9 Obesity, unspecified; Z68.31 Body mass index [BMI] 31.0-31.9, adult; C80.1 Malignant (primary) neoplasm, unspecified; D63.1 Anemia in chronic kidney disease; M47.896 Other spondylosis, lumbar region; G47.33 Obstructive sleep apnea (adult) (pediatric); Z79.01 Long term (current) use of anticoagulants; K44.9 Diaphragmatic hernia without obstruction or gangrene; T42.6X5A Adverse effect of other antiepileptic and sedative-hypnotic drugs, initial encounter
CPT/HCPCS: 36415; 36600; 43239; 70450; 70551; 71045; 72131; 74018; 74176; 74177; 74230; 80048; 80053; 80061; 80076; 82105; 82140; 82378; 82550; 82553; 82607; 82805; 82948; 83090; 83540; 83735; 84100; 84436; 84443; 84466; 84479; 84484; 85025; 85610; 85730; 86705; 86706; 87040; 87070; 87071; 87205; 87340; 88305; 88312; 90962; 93005; 93306; 94640; 94660; 96372; 97139; 99285; J0295; J1650; J1817; J2405; J7030; J7050; J7060; Q9967

== ENCOUNTER 2019-09-12 13:43 | Observation (INO) | payer MEDICARE ==
[~2019-09-12] VITALS: Ht 152.4 cm; Wt 83.2 kg
--- NOTE | 2019-09-12 18:00 | NUR ---
PT TO THE FLOOR AT 1800. VITALS WNL. PT DENIES NEEDS AT THIS TIME.
[2019-09-12 18:10] VITALS: BP 100/55
[2019-09-12] MEDS ORDERED: ACETAMINOPHEN 325 MG TAB PO ONE (18:49)
[2019-09-12] MEDS ORDERED: SODIUM CHLORIDE 0.9% 250ML 250 ML IV ONE (19:00)
[2019-09-12] MEDS ORDERED: FAMOTIDINE 20 MG/2 ML VIAL IV ONE (19:00)
[2019-09-12] MEDS ORDERED: DIPHENHYDRAMINE HCL INJ 50 MG/ML VIAL IV ONE (19:00)
--- NOTE | 2019-09-12 20:11 | NUR ---
SPOKE TO DR. BAE REGARDING HEMOGLOBIN 7.7 THAT WAS COLLECTED ON 09/08/19. SAID TO DRAW ANOTHER HH. ALSO ORDERED TO CONTINUE HOME MEDS.
[2019-09-12] MEDS ORDERED: NORCO 10-325 T1 EACH PO (20:13)
[2019-09-12 20:35] VITALS: BP 117/58
[2019-09-12 20:49] LABS: HEMATOCRIT 28.3 % (34.2-44.1); HEMOGLOBIN 8.3 g/dL (12.0-16.0)
[2019-09-12] MEDS ORDERED: ISOSORBIDE MONONITRATE 120 MG PO SCH (21:00)
[2019-09-12] MEDS ORDERED: ALBUTEROL SULF 0.083% NEB SOLN 3 ML NEB NEB PRN (21:15)
[2019-09-12] MEDS ORDERED: ONDANSETRON HCL 4 MG ORAL DISINTEGRATING TAB PO PRN (21:15)
[2019-09-12 21:18] VITALS: BP 117/58
[2019-09-12 21:26] VITALS: BP 117/58
--- NOTE | 2019-09-12 21:30 | NUR ---
INFORMED DR. BAE REGARDING HEMOGLOBIN READING 8.3 FROM 7.7. SAID TO CONSULT DR. JASON IF HE STILL WANTS BLOOD TO BE TRANSFUSED.
--- NOTE | 2019-09-12 22:21 | NUR ---
SPOKE TO DR. HOLT REGARDING HEMOGLOBIN READING 8.3. SAID NOT TO GIVE BLOOD AT THIS TIME AND RECHECK HH IN THE MORNING.
[2019-09-12] MEDS: HYDROCODONE/APAP 10MG-325MG TAB PO PRN (22:40)
[2019-09-13 00:20] VITALS: BP 127/82
[2019-09-13 04:00] VITALS: BP 115/50
[2019-09-13 05:55] LABS: HEMOGLOBIN 7.5 g/dL (12.0-16.0)
[2019-09-13] MEDS ORDERED: LEVOTHYROXINE SODIUM 88 MCG TAB PO SCH (06:00)
--- NOTE | 2019-09-13 06:24 | NUR ---
PAGED DR. JASON REGARDING HGB READING 7.5, AWAITING CALL BACK.
--- NOTE | 2019-09-13 07:00 | NUR ---
BEDSIDE SHIFT REPORT RECEIVED FROM NYLON MACHINE OPERATOR RN. PT DENIES NEEDS AT THIS TIME.
--- NOTE | 2019-09-13 07:26 | NUR ---
RE-PAGED DR. JASON. AWAITING CALL BACK
[2019-09-13 07:31] VITALS: BP 94/50
[2019-09-13 08:00] VITALS: BP 94/50
[2019-09-13] MEDS ORDERED: MIDODRINE 2.5 MG TAB PO SCH (08:00)
[2019-09-13] MEDS: SEVELAMER CARBONATE 800 MG TAB PO SCH ×2 (08:18→15:15)
[2019-09-13] MEDS: GABAPENTIN 400 MG CAP PO SCH ×2 (08:18→15:15)
[2019-09-13] MEDS: HYDROCODONE/APAP 10MG-325MG TAB PO PRN (08:20)
[2019-09-13] MEDS ORDERED: METOPROLOL TARTRATE 50 MG TAB PO SCH (09:00)
[2019-09-13] MEDS ORDERED: FUROSEMIDE 40 MG TAB PO SCH (09:00)
[2019-09-13] MEDS ORDERED: SUCRALFATE 1 GM TAB PO SCH (09:00)
[2019-09-13] MEDS ORDERED: ALLOPURINOL 100 MG TAB PO SCH (09:00)
[2019-09-13] MEDS ORDERED: AMIODARONE HCL 200 MG TAB PO SCH (09:00)
[2019-09-13] MEDS ORDERED: PANTOPRAZOLE SOD 40 MG TABEC PO SCH (09:00)
[2019-09-13] MEDS ORDERED: FOLIC ACID/CYANOCOB/PYRIDOXINE TAB PO SCH (09:00)
[2019-09-13] MEDS ORDERED: NON-FORMULARY MEDICATION (Pravastatin Sodium 10 MG) PO SCH (09:00)
[2019-09-13] MEDS ORDERED: [UNRECOGNIZED DRUG - MIXTURE] PO SCH (09:00)
[2019-09-13] MEDS ORDERED: SODIUM CHLORIDE 0.9% 1000ML 2,000 ML ONE (10:17)
[2019-09-13 12:00] VITALS: BP 122/51
[2019-09-13 12:26] LABS: BASOPHILS % 0.5 % (0.0-1.0); EOSINOPHILS # (AUTO) 0.1 (0.0-0.4); EOSINOPHILS % 2.6 % (0.0-6.0); HEMATOCRIT 27.1 % (34.2-44.1); HEMOGLOBIN 7.9 g/dL (12.0-16.0); LYMPHOCYTES # (AUTO) 0.6 (1.0-3.2); LYMPHOCYTES % 15.1 % (18.0-39.1); MEAN CORPUSCULAR HEMOGLOBIN 27.8 pg (28-32); MEAN CORPUSCULAR HGB CONC 29.2 g/dL (31-35); MEAN CORPUSCULAR VOLUME 95.4 fL (81-99); MONOCYTES # (AUTO) 0.3 (0.2-0.8); MONOCYTES % 8.4 % (4.4-11.3); NEUTROPHILS # (AUTO) 2.8 (2.1-6.9); NEUTROPHILS % 71.4 % (38.7-80.0); PLATELET COUNT 127 x10e3/uL (140-360); RED BLOOD COUNT 2.84 x10e6/uL (3.6-5.1); RED CELL DISTRIBUTION WIDTH 17.5 % (11.7-14.4)
[2019-09-13 12:43] LABS: BAND NEUTROPHILS % (MANUAL) 5 %; EOSINOPHILS % (MANUAL) 1 % (0-7); LYMPHOCYTES % (MANUAL) 10 % (19-48); METAMYELOCYTES % (MANUAL) 3 % (0-0); MONOCYTES % (MANUAL) 3 % (3.4-9.0); NEUTROPHILS % (MANUAL) 76 % (40-74); PLATELET ESTIMATE SLIGHTLY DECREASED; PLATELET MORPHOLOGY COMMENT NORMAL; RBC MORPHOLOGY COMMENT NORMAL
[2019-09-13] MEDS ORDERED: SODIUM CHLORIDE 0.9% 250ML 250 ML ONE (12:47)
--- NOTE | 2019-09-13 16:00 | NUR ---
PT STARTED HEMODIALYSIS AT 1200 AND HAD 1 LITER PULLED OFF WELL A TRANSDUSION OF 2 UNITS OF PRBC. PT TOLERATED. VITALS WNL. PT STATES READY TO DISCHARGE.
[2019-09-13 16:23] VITALS: BP 140/51
[2019-09-13] MEDS ORDERED: SERTRALINE HCL 100 MG TAB PO SCH (21:00)
[2019-09-13] MEDS ORDERED: ISOSORBIDE MONONITRATE 30 MG TAB CR PO SCH (21:00)
[2019-09-13] MEDS ORDERED: PRAVASTATIN 20 MG TAB PO SCH ×2 (21:00)
== END 2019-09-13 17:05 | disposition home or self-care (01) ==
LOC: MED/SURG 17:46
PROVIDERS: ADMIT Internal Medicine; ATTEND Internal Medicine
DX: D64.9 Anemia, unspecified (principal); I12.0 Hypertensive chronic kidney disease with stage 5 chronic kidney disease or end stage renal disease; N18.6 End stage renal disease; Z99.2 Dependence on renal dialysis; G47.33 Obstructive sleep apnea (adult) (pediatric); I25.10 Atherosclerotic heart disease of native coronary artery without angina pectoris; Z95.1 Presence of aortocoronary bypass graft; I11.0 Hypertensive heart disease with heart failure; I50.22 Chronic systolic (congestive) heart failure
CPT/HCPCS: 36415 ×2; 36430; 82948; 83880; 85014 ×2; 85018 ×2; 85025; 86850; 86900; 86920; G0378 ×2; J7030; J7050; P9016; S0164

== ENCOUNTER 2019-11-10 12:05 | Emergency (ER) | payer OTHER ==
[~2019-11-10] VITALS: Ht 152.4 cm; Wt 83.0 kg
[2019-11-10 12:46] LABS: BASOPHILS % 0.6 % (0.0-1.0); EOSINOPHILS # (AUTO) 0.1 (0.0-0.4); EOSINOPHILS % 2.5 % (0.0-6.0); HEMATOCRIT 39.9 % (34.2-44.1); HEMOGLOBIN 11.5 g/dL (12.0-16.0); LYMPHOCYTES # (AUTO) 0.6 (1.0-3.2); LYMPHOCYTES % 11.5 % (18.0-39.1); MEAN CORPUSCULAR HEMOGLOBIN 28.2 pg (28-32); MEAN CORPUSCULAR HGB CONC 28.8 g/dL (31-35); MEAN CORPUSCULAR VOLUME 97.8 fL (81-99); MONOCYTES # (AUTO) 0.3 (0.2-0.8); MONOCYTES % 6.6 % (4.4-11.3); NEUTROPHILS % 78.6 % (38.7-80.0); PLATELET COUNT 91 x10e3/uL (140-360); RED BLOOD COUNT 4.08 x10e6/uL (3.6-5.1); RED CELL DISTRIBUTION WIDTH 17.9 % (11.7-14.4)
[2019-11-10 13:08] LABS: ALBUMIN 3.3 g/dL (3.5-5.0); ANION GAP 16.5 mmol/L (8-16); CALCIUM 8.3 mg/dL (8.4-10.2); CREATININE, SERUM 6.48 mg/dL (0.57-1.11); POTASSIUM 3.5 mmol/L (3.5-5.1)
[2019-11-10 14:31] LABS: EOSINOPHILS % (MANUAL) 2 % (0-7); LYMPHOCYTES % (MANUAL) 16 % (19-48); MONOCYTES % (MANUAL) 5 % (3.4-9.0); NEUTROPHILS % (MANUAL) 77 % (40-74); PLATELET ESTIMATE SLIGHTLY DECREASED; PLATELET MORPHOLOGY COMMENT NORMAL; RBC MORPHOLOGY COMMENT NORMAL
[2019-11-10 15:44] LABS: BILIRUBIN,URINE NEGATIVE (NEGATIVE); CLARITY,URINE TURBID (CLEAR); COLOR,URINE YELLOW (YELLOW); KETONES,URINE NEGATIVE (NEGATIVE); LEUKOCYTE ESTERASE ,URINE 2+ (NEGATIVE); NITRITE,URINE NEGATIVE (NEGATIVE); PROTEIN,URINE DIPSTICK 2+ (NEGATIVE); URINE UROBILINOGEN 0.2 mg/dL (0.2 - 1)
[2019-11-10 15:50] LABS: BACTERIA,URINE MANY /HPF; WBC,URINE (MAN) 21-50 /HPF (0-5)
== END 2019-11-10 18:24 | disposition home or self-care (01) ==
LOC: ER 12:05
DX: R19.7 Diarrhea, unspecified (principal); N30.91 Cystitis, unspecified with hematuria; E11.9 Type 2 diabetes mellitus without complications; I48.91 Unspecified atrial fibrillation; J44.9 Chronic obstructive pulmonary disease, unspecified; I50.9 Heart failure, unspecified; Z99.81 Dependence on supplemental oxygen
CPT/HCPCS: 36415; 80053; 81001; 85025; 93005; 99284

== ENCOUNTER 2019-12-05 13:19 | Inpatient (IN) | payer OTHER ==
[~2019-12-05] VITALS: Ht 152.4 cm; Wt 85.3 kg
[2019-12-05] MEDS ORDERED: IPRATROPIUM BROMIDE 0.02% 2.5 ML NEB NEB STA (13:36)
[2019-12-05] MEDS ORDERED: METHYLPREDNISOLONE SOD SUCC 125 MG/2ML VIAL IV STA (13:36)
[2019-12-05] MEDS ORDERED: ALBUTEROL SULF 0.083% NEB SOLN 3 ML NEB NEB STA (13:36)
[2019-12-05] MEDS ORDERED: DILTIAZEM HCL 5 MG/ML 5 ML VIAL IV STA (13:44)
[2019-12-05 14:07] LABS: BASOPHILS % 0.2 % (0.0-1.0); EOSINOPHILS # (AUTO) 0.1 (0.0-0.4); HEMATOCRIT 35.4 % (34.2-44.1); HEMOGLOBIN 10.6 g/dL (12.0-16.0); LYMPHOCYTES # (AUTO) 0.7 (1.0-3.2); LYMPHOCYTES % 13.1 % (18.0-39.1); MEAN CORPUSCULAR HGB CONC 29.9 g/dL (31-35); MEAN CORPUSCULAR VOLUME 93.7 fL (81-99); MONOCYTES # (AUTO) 0.4 (0.2-0.8); MONOCYTES % 6.9 % (4.4-11.3); NEUTROPHILS # (AUTO) 4.1 (2.1-6.9); NEUTROPHILS % 78.2 % (38.7-80.0); PLATELET COUNT 127 x10e3/uL (140-360); RED BLOOD COUNT 3.78 x10e6/uL (3.6-5.1); RED CELL DISTRIBUTION WIDTH 18.3 % (11.7-14.4)
--- NOTE | 2019-12-05 14:46 | Diagnostic Imaging Report ---
EXAMINATION: CHEST SINGLE (PORTABLE) INDICATION: Cough, shortness of breath. COMPARISON: Chest radiograph 10/10/2019. FINDINGS: LINES/TUBES:None LUNGS:The lungs are moderately inflated. There is perihilar fullness and indistinctness of the pulmonary vasculature. Interval decrease in patchy opacities in the right lung. Persistent patchy left mid and lower lung zone opacities. PLEURA:Likely small left pleural effusion. No pneumothorax. MEDIASTINUM:Cardiomediastinal silhouette is stably enlarged. Atherosclerotic calcifications of the thoracic aorta. BONES/SOFT TISSUES:No acute osseous injury. Sternotomy wires unchanged ABDOMEN:No free air under the diaphragm. IMPRESSION: Cardiomegaly and findings of pulmonary edema, possibly with superimposed pneumonia in the appropriate clinical setting. Signed by: Dr. Sanya Bryant MD on 12/05/2019 2:44 PM
[2019-12-05] MEDS ORDERED: METOPROLOL TARTRATE INJ 1 MG/ML VIAL IV ONE ×4 (15:15→19:00)
[2019-12-05] MEDS ORDERED: CEFTRIAXONE SOD 1 GM/NS 50 ML 50 ML IV SCH (16:00)
[2019-12-05] MEDS ORDERED: IPRATROPIUM BROMIDE 0.02% 2.5 ML NEB NEB PRN (16:00)
[2019-12-05] MEDS ORDERED: AMIODARONE HCL 360MG 200 ML IV SCH ×2 (16:00→18:00)
[2019-12-05] MEDS ORDERED: ONDANSETRON HCL INJ 2MG/ML 2ML 2 MG/ML VIAL IV PRN ×2 (16:00→18:30)
[2019-12-05] MEDS ORDERED: LEVALBUTEROL HCL SOLN NEBU 0.63 MG/3 ML NEB INH PRN (16:00)
[2019-12-05] MEDS ORDERED: HEPARIN SOD (PORCINE) 5,000 UNIT/ML VIAL IV ONE (16:30)
[2019-12-05] MEDS ORDERED: AMIODARONE HCL 150MG 100 ML IV SCH (16:30)
[2019-12-05] MEDS ORDERED: METOPROLOL TARTRATE 25 MG TAB PO SCH (16:30)
[2019-12-05 16:46] LABS: INR 1.07; PARTIAL THROMBOPLASTIN TIME 30.2 seconds (23.8-35.5); PROTHROMBIN TIME 14.6 seconds (11.9-14.5)
[2019-12-05 16:55] LABS: ALBUMIN 3.3 g/dL (3.5-5.0); ALBUMIN/GLOBULIN RATIO 0.8 (0.8-2.0); CALCIUM 9.4 mg/dL (8.4-10.2); CREATININE, SERUM 5.44 mg/dL (0.57-1.11)
[2019-12-05] MEDS ORDERED: AMIODARONE 900MG 500 ML IV NR (17:00)
[2019-12-05] MEDS ORDERED: AZITHROMYCIN 500MG/NS 250 ML 250 ML IV SCH (17:00)
[2019-12-05] MEDS: HEPARIN 25,000 UNIT 700 UNIT in DEXTROSE 5% 250ML 250 ML IV SCH ×2 (17:15→21:03)
[2019-12-05 17:22] LABS: THYROID STIMULATING HORMONE 11.12 uIU/mL (0.350-4.940)
[2019-12-05] MEDS: AMIODARONE 900MG 500 ML IV SCH (17:30)
--- NOTE | 2019-12-05 18:17 | NUR ---
Diaysis nurse at bedside. States that he is unable to dialyze at patients current heart rate of 140. aware.
[2019-12-05] MEDS ORDERED: HYDROCODONE/APAP 10MG-325MG TAB PO PRN (18:30)
[2019-12-05] MEDS ORDERED: ONDANSETRON HCL 4 MG ORAL DISINTEGRATING TAB PO PRN (18:30)
--- NOTE | 2019-12-05 18:45 | NUR ---
pt complaining of chest pain and shortness of breath repeat ekg performed MD notified and given EKG.
[2019-12-05] MEDS ORDERED: DIGOXIN INJ 0.25 MG/ML 2 ML AMP IV ONE (19:00)
[2019-12-05] MEDS ORDERED: FUROSEMIDE INJ 10 MG/ML 4 ML VIAL IV ONE (19:00)
--- NOTE | 2019-12-05 19:18 | NUR ---
report given to Asher BALL
[2019-12-05 20:52] LABS: CREATINE KINASE < 7 IU/L (29-168)
[2019-12-05] MEDS: GABAPENTIN 400 MG CAP PO SCH (23:00)
--- NOTE | 2019-12-05 23:19 | NUR ---
dyalysis nurse done with HD procedure, 2.7 L removed
--- NOTE | 2019-12-05 23:30 | Consultation ---
DATE OF CONSULTATION: 12/05/2019 HISTORY OF PRESENT ILLNESS: The patient seen in the emergency room. A 74-year-old female, well known to our Nephrology service, who went to dialysis, was found to have rapid ventricular rate. They subsequently sent over to the ER, where she was found to have AFib with RVR. She has baseline shortness of breath, but it is worse since the last 2 days because she has developed bronchitis. She went to see Dr. Juvenal Rosa. She had some yellow-colored phlegm along with wheezing. She was prescribed amoxicillin and prednisone yesterday. She has had 1 breathing treatment. Right now, she is currently awake, alert, and oriented x3. Chemistries are pending. LABORATORY DATA: CBC shows white count 5.2, hemoglobin 10.6. Chest x-ray, please see official report, shows cardiomegaly with findings suggestive of congestive heart failure. ALLERGIES: SULFA AND LISINOPRIL. SOCIAL HISTORY: The patient used to be an ex-smoker. Denies drinking. FAMILY HISTORY: Significant for diabetes. PAST MEDICAL HISTORY: History of congestive heart failure, AFib with RVR, history of SVT, end-stage renal disease, prior colitis, sepsis, compression fractures, history of peripheral neuropathy, hypothyroidism, hyperlipidemia, secondary hyperparathyroidism, anemia, chronic kidney disease, chronic nonhealing coccyx and sacral ulcers, history of diabetes, diabetic kidney disease. CURRENT MEDICATIONS: Not reconciled yet. PHYSICAL EXAMINATION: GENERAL: Awake, alert, lying supine, in mild respiratory distress. VITAL SIGNS: Blood pressure of 116/63, pulse rate 117, afebrile, respiratory rate 20, oxygen saturation 99% on nasal cannula oxygen. HEAD AND NECK: Cornea clear. Oral mucosa moist. NECK: Veins are slightly distended. No JVD. LUNGS: Both inspiratory and expiratory rhonchi and scattered rales bilateral. HEART: S1 and S2 audible. Irregularly irregular rhythm. Tachycardic. ABDOMEN: Soft, nontender. No apparent visceromegaly. LOWER EXTREMITY: No edema. IMPRESSION AND PLAN: Congestive heart failure, atrial fibrillation with rapid ventricular response. Chemistries pending. End-stage renal disease. The patient will need dialysis after rate control. Discussed with Dr. Ramírez. Solu-Medrol nebulizers, IV antibiotics to be started as discussed with Dr. Ramírez. Renal diet. I will arrange for dialysis. The dialysis nurse paged. MD MARY Leonard/BAMBI /[id number]
[2019-12-05] MEDS ORDERED: FUROSEMIDE INJ 10 MG/ML 4 ML VIAL ONE (23:31)
[2019-12-05] MEDS: PIPERACILLIN/TAZO 2.25 GM 50 ML IV SCH (23:54)
[2019-12-05] MEDS: SEVELAMER CARBONATE 800 MG TAB PO SCH (23:54)
[2019-12-05] MEDS: SERTRALINE HCL 100 MG TAB PO SCH (23:54)
[2019-12-05] MEDS ORDERED: DIGOXIN INJ 0.25 MG/ML 2 ML AMP ONE (23:56)
[2019-12-06] VITALS (10 sets, daily range): BP systolic 110–144; BP diastolic 55–80
[2019-12-06] MEDS: AMIODARONE 900MG 500 ML IV SCH (00:04)
--- NOTE | 2019-12-06 01:16 | NUR ---
patient brought in from ER, patient is alert and oriented x4. patient on 2l nc, p[atient welcomed and offered a bed, patient has lower extremity edema, especially the left leg, patient has generalized limbs bruising, patient is currently stable will continue to monitor.
--- NOTE | 2019-12-06 01:40 | NUR ---
As per report from ER, Lab results for ptt resulted at about 8pm of 12/05/2019, and troponin also resulted around the same time so next labs collection is at about 2am of 12/06/2019.
[2019-12-06 03:08] LABS: CREATINE KINASE < 7 IU/L (29-168)
--- NOTE | 2019-12-06 03:57 | NUR ---
heparin increased by 2unit.....new rate 8
[2019-12-06] MEDS: PIPERACILLIN/TAZO 2.25 GM 50 ML IV SCH ×3 (04:53→20:27)
[2019-12-06 05:15] LABS: BASOPHILS % 0.2 % (0.0-1.0); EOSINOPHILS % 0.4 % (0.0-6.0); HEMATOCRIT 33.9 % (34.2-44.1); HEMOGLOBIN 9.6 g/dL (12.0-16.0); LYMPHOCYTES # (AUTO) 0.6 (1.0-3.2); LYMPHOCYTES % 11.2 % (18.0-39.1); MEAN CORPUSCULAR HEMOGLOBIN 27.5 pg (28-32); MEAN CORPUSCULAR HGB CONC 28.3 g/dL (31-35); MEAN CORPUSCULAR VOLUME 97.1 fL (81-99); MONOCYTES # (AUTO) 0.5 (0.2-0.8); MONOCYTES % 8.7 % (4.4-11.3); NEUTROPHILS # (AUTO) 4.2 (2.1-6.9); NEUTROPHILS % 78.6 % (38.7-80.0); PLATELET COUNT 85 x10e3/uL (140-360); RED BLOOD COUNT 3.49 x10e6/uL (3.6-5.1); RED CELL DISTRIBUTION WIDTH 17.8 % (11.7-14.4)
[2019-12-06 05:47] LABS: ALBUMIN 3.2 g/dL (3.5-5.0); ALBUMIN/GLOBULIN RATIO 0.8 (0.8-2.0); CALCIUM 9.2 mg/dL (8.4-10.2); CREATININE, SERUM 3.34 mg/dL (0.57-1.11)
[2019-12-06] MEDS: LEVOTHYROXINE SODIUM 88 MCG TAB PO SCH (06:00)
[2019-12-06 06:12] LABS: CREATINE KINASE < 7 IU/L (29-168)
--- NOTE | 2019-12-06 07:00 | NUR ---
Amio drip at 16mls, heparin drip at 8u/kg, next ptt at 0900, Dr. Allen called for consult and message left in his office.patient endorsed to next shift for continuity of care.
[2019-12-06] MEDS: LEVALBUTEROL HCL SOLN NEBU 1.25 MG/3 ML NEB INH SCH ×3 (07:56→19:12)
[2019-12-06] MEDS: IPRATROPIUM BROMIDE 0.02% 2.5 ML NEB NEB SCH ×3 (07:56→19:12)
[2019-12-06] MEDS: FUROSEMIDE 40 MG TAB PO SCH ×2 (08:04→16:34)
[2019-12-06] MEDS: PANTOPRAZOLE SOD 40 MG TABEC PO SCH (08:04)
[2019-12-06] MEDS: SEVELAMER CARBONATE 800 MG TAB PO SCH ×3 (08:04→20:27)
[2019-12-06] MEDS: ALLOPURINOL 100 MG TAB PO SCH (08:04)
[2019-12-06] MEDS: SUCRALFATE 1 GM TAB PO SCH ×2 (08:04→16:34)
[2019-12-06] MEDS: GABAPENTIN 400 MG CAP PO SCH ×3 (08:04→20:27)
[2019-12-06] MEDS ORDERED: AMIODARONE HCL 200 MG TAB PO SCH (09:00)
--- NOTE | 2019-12-06 14:12 | Consultation ---
DATE OF CONSULTATION: Cardiology Consultation CHIEF COMPLAINT: The patient is a 74-year-old with shortness of breath. HISTORY OF PRESENT ILLNESS: The patient was at the dialysis center when they noticed that her heart was racing. The patient reported shortness of breath and was subsequently sent to the emergency room at [facility]. The patient was noted to be in atrial fibrillation with a rapid ventricular response. The patient had no chest pain, no syncope, no dizziness. PAST MEDICAL HISTORY: Significant for: 1. Chronic atrial fibrillation. 2. Diabetes mellitus. 3. End-stage renal disease. 4. Hypothyroidism. 5. The patient has had 2 previous coronary artery bypass grafting surgeries, one in the and one again in the early . MEDICATIONS: At home include allopurinol, furosemide, gabapentin, amiodarone, and pravastatin. SOCIAL HISTORY: The patient does not drink and does not smoke. FAMILY HISTORY: There is a known family history of diabetes and hypertension. PHYSICAL EXAMINATION: GENERAL: The patient is a well-developed, well-nourished female, in no obvious distress. VITAL SIGNS: Included a temperature of 97.8, blood pressure of 124/65, and pulse of 94. HEAD, EARS, EYES, NOSE, AND THROAT: The patient's cranium was normocephalic and atraumatic. Extraocular muscles were intact. Sclerae were anicteric. Pupils were equal, round, and reactive to light. There was no pallor or cyanosis of the oral mucosa. There is no erythema or edema of the throat. NECK: Supple. No jugular venous distention. No carotid bruits. CHEST: Demonstrated rhonchi bilaterally. CARDIAC: Demonstrated an irregularly irregular rhythm with a 2/6 systolic murmur. ABDOMEN: Demonstrated good bowel sounds. No tenderness and no masses. EXTREMITIES: There is no clubbing, no cyanosis, and no edema. NEUROLOGICAL: The patient was alert and oriented x3. Cranial nerves 2 through 12 are intact. Motor strength was +5/+5 in all limbs. DIAGNOSTIC DATA: The patient's EKG demonstrated atrial fibrillation. IMPRESSION: The patient is a 74-year-old, on dialysis, admitted with atrial fibrillation with a rapid ventricular response. The ventricular response to the patient's atrial fibrillation is now better controlled. RECOMMENDATIONS: My recommendations are as follows: 1. The patient's IV amiodarone drip will be discontinued and the patient will be placed on amiodarone 200 mg twice a day. 2. The patient's heparin could be discontinued and the patient will be started on Eliquis 2.5 mg p.o. twice a day for anticoagulation. 3. The patient will need an echocardiogram with Doppler to evaluate the left ventricular size and function. 4. A Lexiscan nuclear stress test has been ordered to exclude ischemia. John Paul Allen MD DSH/MODL /[id number] cc: Rik Gallego MD
[2019-12-06] MEDS: APIXAB 2.5 MG TABLET PO SCH (16:34)
[2019-12-06] MEDS: AMIODARONE HCL 200 MG TAB PO SCH (16:34)
--- NOTE | 2019-12-06 18:12 | NUR ---
pt has remained stable. hr continues to be ST, reaches 130-140s when eating. drip dc by MD and po started. hep drip dc also. pt amb with stand by assistance to bathroom
--- NOTE | 2019-12-06 19:16 | Diagnostic Imaging Report ---
EXAM: CT Chest without contrast INDICATION: Shortness of breath. COMPARISON: Chest radiograph 12/05/2019. CT chest 07/17/2019. TECHNIQUE: Chest was scanned utilizing a multidetector helical scanner from the lung apex through the level of the adrenal glands without administration of IV contrast. Coronal and sagittal reformations were obtained. Routine protocol was performed. IV CONTRAST: None. RADIATION DOSE: Total DLP: 478 mGy*cm Estimated effective dose: (DLP x 0.014 x size factor) mSv COMPLICATIONS: None FINDINGS: LINES/ TUBES: None. LUNGS AND AIRWAYS: The central airways are patent. Bilateral lower lobe dependent subsegmental atelectasis. There are diffuse geographic groundglass opacities throughout both lungs. Linear likely subsegmental atelectasis in the bilateral upper lobes. Patchy consolidative opacities within the bilateral lower lobes and in the left upper lobe. Previously noted 8 mm right lower lobe pulmonary nodule is not visualized on the study, and may have represented an area of nodular atelectasis. PLEURA: Small left greater than right pleural effusions. No pneumothorax. HEART AND MEDIASTINUM: There are 0.9 cm and a 1.3 cm left thyroid nodules, unchanged. No supraclavicular lymphadenopathy. Enlarged pretracheal lymph node measures up to 1.8 x 1.8 cm, previously 2.5 x 1.6 cm. A prominent AP window lymph node, measures up to 1.0 cm short axis, previously 1.2 cm. The heart is mildly enlarged. Extensive atherosclerotic calcifications involve the coronary arteries, aorta, and great vessels. Status post CABG. UPPER ABDOMEN: Limited noncontrast images of the upper abdomen. Multiple hypodense hepatic lesions, suspicious for metastases are again noted. Some of the lesions are smaller compared to prior chest CT on 07/17/2019, for example a 0.8 cm left hepatic lobe hypodense lesion, previously 2.7 cm, and a 1.3 cm right hepatic dome lesion, previously 2.5 cm. Interval enlargement of a segment 41.9 cm lesion, previously 1.6 cm. Extensive atherosclerotic calcifications of the abdominal aorta and branch vessels. BONES: No acute osseous injury. Sternotomy wires in place. Degenerative changes of the visualized spine. No suspicious lytic or blastic lesions. SOFT TISSUES: No axillary lymphadenopathy. Densely calcified structure in the left breast, likely related to remote trauma. IMPRESSION: Findings of pulmonary alveolar edema and small bilateral pleural effusions. Superimposed infection is possible in the appropriate clinical setting. Slightly decreased size of mediastinal lymphadenopathy, which may be reactive or metastatic. Incompletely evaluated hepatic metastatic disease in the upper abdomen as above, some lesions appear smaller while others are enlarged. Recommend follow-up CT of the abdomen and pelvis per oncology protocol. Signed by: Dr. Sanya Bryant MD on 12/06/2019 7:14 PM
[2019-12-06] MEDS: SERTRALINE HCL 100 MG TAB PO SCH (20:27)
--- NOTE | 2019-12-06 22:09 | History and Physical ---
CHIEF COMPLAINT: Atrial fibrillation with rapid ventricular rate response. HISTORY OF PRESENT ILLNESS: The patient is a 74-year-old female with atrial fibrillation, chronically on amiodarone. The patient also has end-stage renal disease, on dialysis. Along with that she also has history of coronary artery disease with 2 previous coronary artery bypass graft surgeries, one in the 1989 and then one again in early 1999. The patient at baseline required dialysis. She is very vulnerable to fluid overload. The patient is stable, but for the past few days or so the patient having increase in heart rate due to upper respiratory symptoms. The patient now came into the hospital with heart rate in the 130-[address]. Atrial fibrillation right not controlled. At one point, it was 150. The patient is otherwise stable. She is getting IV loading amiodarone, although she was on 200 mg daily orally outpatient. The patient's white cell count is normal. She is comfortable. INR is 1.07. The patient is on Eliquis 2.5 mg twice a day. PAST MEDICAL HISTORY: Atrial fibrillation, congestive heart failure, SVT, end-stage renal disease on dialysis, degenerative disk disease, compression lumbar spinal fractures, COPD chronically stable, hypertension, recurrent urinary tract infection, recurrent hospitalization due to fluid overload, and congestive heart failure. SOCIAL HISTORY: The patient does not smoke or use alcohol. No regular drug. ALLERGIES: TO LISINOPRIL AND BACTRIM. HOME MEDICATIONS: List is reviewed. PHYSICAL EXAMINATION: VITAL SIGNS: Temperature is 98, blood pressure 124/68 pulse rate from 110 to 150, atrial fibrillation, and respirations 18. GENERAL: The patient is not in acute distress. She is awake. HEENT: Normocephalic and atraumatic. She is anicteric. NECK: Supple grossly. PULMONARY: Diminished breath sounds bilaterally with some coarses. CARDIOVASCULAR: Irregularly irregular fast rate uncontrolled. ABDOMEN: Soft and obese. EXTREMITIES: No cyanosis or edema. NEUROLOGIC: No gross focal deficit. Moving all extremities. LABORATORY DATA: Reviewed. Sodium is 130, potassium 5, chloride 87, bicarb 29, BUN 21, creatinine 3.3, and glucose 105. WBC 5.4, hemoglobin 9.4, hematocrit 33.9, and platelets 85. INR is 1.07 and PTT 14.6. Liver enzyme unremarkable. Chest x-ray; possible pneumonia, bronchitis. PLAN: Antibiotics. Dialysis. Home medication. Amiodarone loading. CT chest without contrast. Continue with home medication with some adjustment. MD TIM Lucero/BAMBI /[id number]
[2019-12-07] VITALS (7 sets, daily range): BP systolic 104–137; BP diastolic 63–84
[2019-12-07] MEDS: LEVALBUTEROL HCL SOLN NEBU 1.25 MG/3 ML NEB INH SCH ×4 (01:30→19:35)
[2019-12-07] MEDS: IPRATROPIUM BROMIDE 0.02% 2.5 ML NEB NEB SCH ×4 (01:30→19:35)
[2019-12-07] MEDS: PIPERACILLIN/TAZO 2.25 GM 50 ML IV SCH ×3 (06:07→19:43)
[2019-12-07] MEDS: LEVOTHYROXINE SODIUM 88 MCG TAB PO SCH (06:07)
[2019-12-07] MEDS: APIXAB 2.5 MG TABLET PO SCH ×2 (08:24→16:55)
[2019-12-07] MEDS: GABAPENTIN 400 MG CAP PO SCH ×3 (08:24→19:43)
[2019-12-07] MEDS: SUCRALFATE 1 GM TAB PO SCH ×2 (08:24→16:55)
[2019-12-07] MEDS: ALLOPURINOL 100 MG TAB PO SCH (08:24)
[2019-12-07] MEDS: SEVELAMER CARBONATE 800 MG TAB PO SCH ×2 (08:24→16:55)
[2019-12-07] MEDS: PANTOPRAZOLE SOD 40 MG TABEC PO SCH (08:24)
[2019-12-07] MEDS: FUROSEMIDE 40 MG TAB PO SCH (08:24)
[2019-12-07] MEDS: AMIODARONE HCL 200 MG TAB PO SCH ×2 (08:24→16:55)
--- NOTE | 2019-12-07 08:58 | NUR ---
Educated pt on IMM letter. She verbalized understanding and signed. Copy placed in her bedside folder, and original placed in chart
[2019-12-07] MEDS: METOPROLOL TARTRATE 25 MG TAB PO SCH ×2 (13:13→16:55)
[2019-12-07] MEDS: SERTRALINE HCL 100 MG TAB PO SCH (19:43)
[2019-12-08 00:08] VITALS: BP 141/87
[2019-12-08] MEDS: LEVALBUTEROL HCL SOLN NEBU 1.25 MG/3 ML NEB INH SCH ×4 (01:55→19:00)
[2019-12-08] MEDS: IPRATROPIUM BROMIDE 0.02% 2.5 ML NEB NEB SCH ×4 (01:55→19:00)
[2019-12-08 04:43] VITALS: BP 134/72
[2019-12-08] MEDS: PIPERACILLIN/TAZO 2.25 GM 50 ML IV SCH ×2 (05:24→12:00)
[2019-12-08] MEDS: FUROSEMIDE 40 MG TAB PO SCH (05:50)
[2019-12-08] MEDS: LEVOTHYROXINE SODIUM 88 MCG TAB PO SCH (05:50)
[2019-12-08 07:12] LABS: ALBUMIN/GLOBULIN RATIO 0.8 (0.8-2.0); ANION GAP 18.4 mmol/L (8-16); CALCIUM 8.7 mg/dL (8.4-10.2); CREATININE, SERUM 6.65 mg/dL (0.57-1.11); POTASSIUM 5.4 mmol/L (3.5-5.1)
[2019-12-08] MEDS: PANTOPRAZOLE SOD 40 MG TABEC PO SCH (07:30)
[2019-12-08] MEDS: SUCRALFATE 1 GM TAB PO SCH ×2 (07:30→16:30)
[2019-12-08] MEDS: SEVELAMER CARBONATE 800 MG TAB PO SCH ×3 (08:00→17:00)
[2019-12-08 09:00] VITALS: BP 123/70
[2019-12-08] MEDS: ALLOPURINOL 100 MG TAB PO SCH (09:00)
[2019-12-08] MEDS: METOPROLOL TARTRATE 25 MG TAB PO SCH ×2 (09:00→17:00)
[2019-12-08] MEDS: APIXAB 2.5 MG TABLET PO SCH ×2 (09:00→17:00)
[2019-12-08] MEDS: GABAPENTIN 400 MG CAP PO SCH ×2 (09:00→15:00)
[2019-12-08] MEDS: AMIODARONE HCL 200 MG TAB PO SCH ×2 (09:00→17:00)
[2019-12-08 10:23] VITALS: BP 123/70
[2019-12-08] MEDS ORDERED: REGADENOSON 0.4 MG/5 ML SYR IV ONE (11:39)
[2019-12-08 12:00] VITALS: BP 123/71
[2019-12-08] MEDS ORDERED: SODIUM CHLORIDE 0.9% 1000ML 2,000 ML ONE (14:58)
--- NOTE | 2019-12-08 19:00 | NUR ---
HANDOFF REPORT TO ONCOMING NURSE, MADE AWARE PATIENT WAS OFF UNIT FOR STRESS TESTING AND WAS NOT GIVEN ELEQUIS AND AMIODARONE NIGHT NURSE WILL GIVE AFTER HEMODIALYSIS.
[2019-12-08] MEDS ORDERED: SODIUM CHLORIDE 0.9% 250ML 500 ML IV PRN (19:15)
[2019-12-08] MEDS ORDERED: SODIUM CHLORIDE 0.9% 1000ML 2,000 ML IV PRN (19:15)
[2019-12-08] MEDS ORDERED: ALBUMIN 25% 12.5GM 0.25 GM/ML BTL IV PRN (19:15)
--- NOTE | 2019-12-08 19:30 | NUR ---
Received patient hemodynamically stable, due for dialysis
[2019-12-08 20:00] VITALS: BP 131/89
--- NOTE | 2019-12-08 22:53 | Operative Report ---
DATE OF PROCEDURE: 12/08/2019 SURGEON: John Paul Allen MD PROCEDURE: Lexiscan nuclear stress test. INDICATION: Congestive heart failure. The patient was given 11 mCi of Myoview. Resting images were obtained in the horizontal long axis, and vertical long axis, and short axis. The patient was then hooked up to the EKG machine. Lexiscan was infused over 15 seconds. Immediately after Lexiscan infusion, the patient was given 29.7 mCi of Myoview. Stress images were obtained 30 minutes after completion of Lexiscan infusion. Stress images were obtained in the horizontal long axis, vertical long axis, and short axis. RESULTS: 1. The resting EKG demonstrated atrial fibrillation with nonspecific ST and T-wave changes. 2. There were no EKG changes and no symptoms during Lexiscan infusion. 3. There was diminished perfusion to the apex in both the stress and resting images. 4. There was moderate left ventricular dysfunction with an ejection fraction of 35%. There was hypokinesis of the apex. CONCLUSION: There is a fixed defect in the apex consistent with myocardial scar. There is moderate left ventricular dysfunction with an ejection fraction of 35%. John Paul Allen MD H/MODL /[id number] cc: Rik Gallego MD
--- NOTE | 2019-12-08 23:30 | NUR ---
Dialysis ended well, UF of 3L. Patient remains stable
[2019-12-09] VITALS (8 sets, daily range): BP systolic 73–129; BP diastolic 45–88
[2019-12-09] MEDS: AMIODARONE HCL 200 MG TAB PO SCH ×3 (00:17→18:42)
[2019-12-09] MEDS: APIXAB 2.5 MG TABLET PO SCH ×3 (00:17→18:42)
[2019-12-09] MEDS: PIPERACILLIN/TAZO 2.25 GM 50 ML IV SCH ×4 (00:17→20:00)
[2019-12-09] MEDS: GABAPENTIN 400 MG CAP PO SCH ×2 (00:17→09:41)
[2019-12-09] MEDS: SERTRALINE HCL 100 MG TAB PO SCH ×2 (00:17→21:00)
[2019-12-09] MEDS: IPRATROPIUM BROMIDE 0.02% 2.5 ML NEB NEB SCH ×4 (01:27→19:00)
[2019-12-09] MEDS: LEVALBUTEROL HCL SOLN NEBU 1.25 MG/3 ML NEB INH SCH ×4 (01:27→19:00)
[2019-12-09] MEDS: FUROSEMIDE 40 MG TAB PO SCH (05:26)
[2019-12-09] MEDS: LEVOTHYROXINE SODIUM 88 MCG TAB PO SCH (05:26)
[2019-12-09 06:20] LABS: BASOPHILS % 0.3 % (0.0-1.0); EOSINOPHILS # (AUTO) 0.2 (0.0-0.4); EOSINOPHILS % 3.3 % (0.0-6.0); HEMATOCRIT 33.1 % (34.2-44.1); HEMOGLOBIN 9.7 g/dL (12.0-16.0); LYMPHOCYTES # (AUTO) 0.5 (1.0-3.2); LYMPHOCYTES % 7.7 % (18.0-39.1); MEAN CORPUSCULAR HEMOGLOBIN 27.4 pg (28-32); MEAN CORPUSCULAR HGB CONC 29.3 g/dL (31-35); MEAN CORPUSCULAR VOLUME 93.5 fL (81-99); MONOCYTES # (AUTO) 0.4 (0.2-0.8); MONOCYTES % 6.2 % (4.4-11.3); NEUTROPHILS # (AUTO) 4.7 (2.1-6.9); NEUTROPHILS % 81.1 % (38.7-80.0); PLATELET COUNT 101 x10e3/uL (140-360); RED BLOOD COUNT 3.54 x10e6/uL (3.6-5.1); RED CELL DISTRIBUTION WIDTH 17.3 % (11.7-14.4)
[2019-12-09 06:50] LABS: ALBUMIN/GLOBULIN RATIO 0.8 (0.8-2.0); ANION GAP 16.1 mmol/L (8-16); CALCIUM 8.6 mg/dL (8.4-10.2); CREATININE, SERUM 3.58 mg/dL (0.57-1.11); POTASSIUM 4.1 mmol/L (3.5-5.1)
[2019-12-09] MEDS: PANTOPRAZOLE SOD 40 MG TABEC PO SCH (07:52)
[2019-12-09] MEDS: SUCRALFATE 1 GM TAB PO SCH ×2 (07:52→18:42)
[2019-12-09] MEDS: SEVELAMER CARBONATE 800 MG TAB PO SCH ×3 (07:54→17:00)
[2019-12-09] MEDS: ALLOPURINOL 100 MG TAB PO SCH (09:41)
[2019-12-09] MEDS ORDERED: METOPROLOL TARTRATE 25 MG TAB PO ONE (11:00)
[2019-12-09] MEDS ORDERED: FLUCONAZOLE 100 MG TAB PO ONE (11:00)
[2019-12-09] MEDS: NYSTATIN/TRIAMCINOLONE 15 GM CR TOP SCH ×2 (11:30→17:00)
[2019-12-09] MEDS: METOPROLOL TARTRATE 50 MG TAB PO SCH (18:43)
[2019-12-10] VITALS: BP 116/34
[2019-12-10] MEDS: LEVALBUTEROL HCL SOLN NEBU 1.25 MG/3 ML NEB INH SCH ×3 (01:30→14:40)
[2019-12-10] MEDS: IPRATROPIUM BROMIDE 0.02% 2.5 ML NEB NEB SCH ×3 (01:30→14:40)
[2019-12-10] MEDS: PIPERACILLIN/TAZO 2.25 GM 50 ML IV SCH ×2 (04:30→11:39)
[2019-12-10 05:00] VITALS: BP 120/31
[2019-12-10] MEDS: FUROSEMIDE 40 MG TAB PO SCH (06:00)
[2019-12-10] MEDS: LEVOTHYROXINE SODIUM 88 MCG TAB PO SCH (06:00)
[2019-12-10 06:04] LABS: ANION GAP 16.1 mmol/L (8-16); CALCIUM 8.4 mg/dL (8.4-10.2); CREATININE, SERUM 5.08 mg/dL (0.57-1.11); POTASSIUM 5.1 mmol/L (3.5-5.1)
[2019-12-10] MEDS: SEVELAMER CARBONATE 800 MG TAB PO SCH ×3 (07:47→16:43)
[2019-12-10] MEDS: PANTOPRAZOLE SOD 40 MG TABEC PO SCH (07:47)
[2019-12-10] MEDS: SUCRALFATE 1 GM TAB PO SCH ×2 (07:47→16:43)
[2019-12-10 08:15] VITALS: BP 127/40
[2019-12-10 08:16] VITALS: BP 127/40
[2019-12-10] MEDS: METOPROLOL TARTRATE 50 MG TAB PO SCH ×2 (09:00→16:43)
[2019-12-10] MEDS ORDERED: FLUCONAZOLE 100 MG TAB PO SCH (09:00)
[2019-12-10] MEDS ORDERED: GABAPENTIN 300 MG CAP PO SCH (09:00)
[2019-12-10] MEDS: AMIODARONE HCL 200 MG TAB PO SCH ×2 (09:19→16:43)
[2019-12-10] MEDS: APIXAB 2.5 MG TABLET PO SCH ×2 (09:19→16:43)
[2019-12-10] MEDS: ALLOPURINOL 100 MG TAB PO SCH (09:20)
--- NOTE | 2019-12-10 09:21 | NUR ---
metoprolol held due to DBP 40 and scheduled dialysis
[2019-12-10 12:00] VITALS: BP 128/38
[2019-12-10] MEDS: NYSTATIN/TRIAMCINOLONE 15 GM CR TOP SCH ×2 (15:28→16:40)
--- NOTE | 2019-12-10 16:00 | NUR ---
Nutrition Screen Note RD Recommendation for Physician: -Continue current diet per MD. Plan of Care: RD following, monitoring for tolerance and adequacy Nutrition reason for involvement: (LOS) Primary Diagnose(s): A-fib PMH: ESRD Ht: 60 in Wt:188 lb BMI: 36.7 kg/m2 IBW:[address] Assessment: (12/09): 74 YOF admitted for A-fib with PMH listed above. The pt was seen resting in bed. She appeared well-nourished. She reported a good appetite, she denied N/V, reported she has had diarrhea for the past 2 days d/t a colonoscopy procedure. Pt denied chewing or swallowing issues as well as any food allergies. Provided the pt with ESRD MNT education for the pt. She verbalized understanding and reported she has been educated before. Chart reviewed. Labs and meds reviewed. Pending d/c today after dialysis. Will continue to monitor. Current Diet: renal diet Malnutrition Evaluation (12/09) The patient does not meet criteria for a specified degree of malnutrition at this time. Will re-evaluate at follow-up as appropriate. Diet Education Needs Assessment: Diet education indicated, pt accepted. Diet Adequacy: (Meeting calorie needs, Meeting protein needs) Learner(s): pt Barriers: none Cultural/Language Modifications: none Readiness: acceptance Method: discussion, handout Topics: ESRD MNT Understanding/Compliance: verbalized understanding, anticipate fair compliance Nutrition Care Level: low Signed: Tracy Shi, RD, LD
[2019-12-10 16:43] VITALS: BP 125/55
[2019-12-10] MEDS ORDERED: ELIQUIS2.5 MG PO (17:39)
[2019-12-10] MEDS ORDERED: LOPRESSOR25 MG PO (17:40)
[2019-12-10] MEDS ORDERED: DIFLUCAN100 MG PO (17:40)
--- NOTE | 2019-12-11 04:30 | Discharge Summary ---
PRIMARY CARE PHYSICIAN: Dr. Moe Sanford. CONSULTANTS: 1. Dr. John Paul Allen. 2. Dr. Miri Baez. FINAL DIAGNOSES: 1. [id number] systolic dysfunction, congestive heart failure with ejection fraction of 35%. 2. Atrial fibrillation with rapid ventricular rate response. 3. Fluid overload, end-stage renal disease, on dialysis. 4. Abdominal fold skin candidiasis. SUMMARY: The patient is a 74-year-old female with recurrent admission to the hospital. Please review previous history and physical and discharge summary. The patient came in with increasing shortness of breath. She had atrial fibrillation with RVR and also with fluid overload. The patient also has some with coughing due to fluid overload most likely. The patient had multiple workup done here. She has increasing her amiodarone to twice a day. Beta-maninder need to be added due to her rapid rate response of atrial fibrillation. CT chest showed that the patient has a finding of pulmonary alveolar edema and bilateral effusion consistent with her congestive heart failure. There is no consolidation. The patient also has other finding which already worked up in the past. She had a Lexiscan for stress test that was subsequently nonreversible ischemia. The patient is otherwise stable. She could get dialysis today, and postdialysis if stable, the patient would discharge home. Home medication has been adjusted. Amiodarone is 200 mg twice a day instead of once a day, started on Eliquis 2.5 mg twice a day due to her atrial fibrillation, Diflucan 100 mg daily for 14 days due to severe abdominal candidiasis in abdominal fold skin area and she would start on Lopressor 50 mg twice a day. The patient need to follow up with her family physician closely for adjustment of her medication. Currently, her heart rate running between 80 to 100. She is stable otherwise asymptomatic and she will get dialysis today again, if stable, the patient will be discharged home with adjustment. MD TIM Lucero/BAMBI /[id number]
== END 2019-12-10 18:34 | disposition home or self-care (01) | DRG 291 ==
LOC: ER 13:19 → ERHOLD 16:04 → IMCU 12-06 00:01
PROVIDERS: ADMIT Internal Medicine; ATTEND Internal Medicine
PROC: 5A1D80Z Performance of Urinary Filtration, Prolonged Intermittent, 6-18 hours Per Day (ICD-10-PCS; principal; 2019-12-05)
PROC: 5A1D80Z Performance of Urinary Filtration, Prolonged Intermittent, 6-18 hours Per Day (ICD-10-PCS; 2019-12-08)
PROC: 5A1D80Z Performance of Urinary Filtration, Prolonged Intermittent, 6-18 hours Per Day (ICD-10-PCS; 2019-12-10)
DX: I13.2 Hypertensive heart and chronic kidney disease with heart failure and with stage 5 chronic kidney disease, or end stage renal disease (principal); J18.9 Pneumonia, unspecified organism; N18.6 End stage renal disease; I50.23 Acute on chronic systolic (congestive) heart failure; I48.20 Chronic atrial fibrillation, unspecified; J20.9 Acute bronchitis, unspecified; Z99.2 Dependence on renal dialysis; Z88.2 Allergy status to sulfonamides; Z88.8 Allergy status to other drugs, medicaments and biological substances; E11.22 Type 2 diabetes mellitus with diabetic chronic kidney disease; K21.9 Gastro-esophageal reflux disease without esophagitis; E78.5 Hyperlipidemia, unspecified; F32.9 Major depressive disorder, single episode, unspecified; E11.42 Type 2 diabetes mellitus with diabetic polyneuropathy; Z79.01 Long term (current) use of anticoagulants; I25.10 Atherosclerotic heart disease of native coronary artery without angina pectoris; Z95.1 Presence of aortocoronary bypass graft; E03.9 Hypothyroidism, unspecified; I11.0 Hypertensive heart disease with heart failure; E87.70 Fluid overload, unspecified; B37.2 Candidiasis of skin and nail
CPT/HCPCS: 36415; 71045; 71250; 78452; 80048; 80053; 82550; 82553; 82948; 84443; 84484; 85025; 85610; 85730; 86705; 86706; 87040; 87340; 87400; 93005; 93017; 93306; 94640; 97139; 99284; A9502; J0456; J0696; J1160; J1644; J1940; J2405; J2543; J2930; J7030

== ENCOUNTER 2021-07-15 12:51 | Emergency (ER) | payer MEDICARE, OTHER ==
[~2021-07-15] VITALS: Ht 304.8 cm; Wt 85.3 kg
[~2021-07-15 12:51] MED LIST changes: +DIFLUCAN100 MG PO; +ELIQUIS2.5 MG PO; +LOPRESSOR25 MG PO
[2021-07-15] MEDS ORDERED: MORPHINE SULFATE INJ 4 MG/ML INJ 1ML IM ONE (13:15)
[2021-07-15] MEDS ORDERED: FENTANYL CITRATE/PF 100MCG/2 ML INJ IJ ONE (13:15)
== END 2021-07-15 15:47 | disposition home or self-care (01) ==
LOC: ER 12:57
DX: M79.631 Pain in right forearm (principal); I12.0 Hypertensive chronic kidney disease with stage 5 chronic kidney disease or end stage renal disease; E11.22 Type 2 diabetes mellitus with diabetic chronic kidney disease; N18.6 End stage renal disease; Z99.2 Dependence on renal dialysis; I50.9 Heart failure, unspecified; J44.9 Chronic obstructive pulmonary disease, unspecified; E78.5 Hyperlipidemia, unspecified; K21.9 Gastro-esophageal reflux disease without esophagitis; M10.9 Gout, unspecified
CPT/HCPCS: 99282; J3010